=== PATIENT | male | born 1950 | race Caucasian/White ===

== ENCOUNTER → 2021-12-29 | Outpatient (CLI) | payer MEDICARE, OTHER ==
[2021-12-29 14:38] LABS: BASOPHILS % (AUTO) 1 % (0-10); MONOCYTES # (AUTO) 0.8 10^3/uL (0.0-1.0); NEUTROPHILS # (AUTO) 3.3 10^3/uL (1.8-7.8)
[2021-12-29 14:40] LABS: EOSINOPHILS # (AUTO) 0.5 10^3/uL (0.0-0.3); EOSINOPHILS % (AUTO) 9 % (0-10); HEMATOCRIT 40 % (40-54); HEMOGLOBIN 13.9 g/dL (13.3-17.7); LYMPHOCYTES # (AUTO) 1.4 10^3/uL (1.0-4.0); LYMPHOCYTES % (AUTO) 23 % (12-44); MEAN CORPUSCULAR HEMOGLOBIN 33 pg (25-34); MEAN CORPUSCULAR HGB CONC 35 g/dL (32-36); MEAN CORPUSCULAR VOLUME 96 fL (80-99); MONOCYTES % (AUTO) 13 % (0-12); NEUTROPHILS % (AUTO) 55 % (42-75); PLATELET COUNT 103 10^3/uL (130-400)
[2021-12-29 15:13] LABS: INR 1.1 (0.8-1.4); PROTHROMBIN TIME PATIENT 14.3 SEC (12.2-14.7)
== END ==
LOC: CARD 13:30
PROVIDERS: ATTEND Orthopaedic Surgery
DX: Z01.810 Encounter for preprocedural cardiovascular examination (principal); Z01.812 Encounter for preprocedural laboratory examination; M17.11 Unilateral primary osteoarthritis, right knee
CPT/HCPCS: 36415; 85025; 85610; 93005

== ENCOUNTER → 2021-12-29 | Outpatient (CLI) | payer MEDICARE, OTHER ==
--- NOTE | 2021-12-29 12:37 | Diagnostic Imaging Report ---
INDICATION: Right knee pain. COMPARISON: None. FINDINGS: Multiple radiographic views of the right knee were obtained. There is no evidence of acute fracture or dislocation. Osseous structures are intact. Joint spaces are maintained. Mild tricompartmental osteoarthritis is present. Note is made of large extraosseous calcification posterior to the medial joint space. It measures 1.9 x 1.3 cm. Conceivably, this could represent large calcification within a Ellison's cyst. No unexpected radiopaque foreign bodies are seen. Note is made of partially sclerotic lesion within the distal femoral shaft that measures 2.5 x 1.3 x 1.5 cm. Rings and arcs appearance is noted and is suggestive of benign enchondroma. IMPRESSION: 1. No acute fracture or dislocation of the right knee. 2. Mild tricompartmental osteoarthritis with potential calcification within a Ellison's cyst. 3. Probable benign enchondroma of the distal femoral shaft. Please note, pain associated with enchondromas can be a sign of malignant transformation. May want to consider short interval follow-up. Dictated by: Dictated on workstation # [id number]
--- NOTE | 2021-12-29 15:08 | Diagnostic Imaging Report ---
INDICATION: Preop prior to knee surgery. TIME OF EXAM: 2:02 PM. COMPARISON: No prior studies are available for comparison. FINDINGS: The heart size is normal. There is some minimal linear scarring in the left lung base. There is a questionable nodule in the left mid to upper lung field; otherwise, the lungs are clear. No infiltrates are seen. There is no effusion or pneumothorax. There are postop changes involving the right scapula. IMPRESSION: Questionable nodular density in the left mid to upper lung field. Correlation with prior chest radiographs, if available, would be useful to evaluate stability. If no priors are available, a CT of the chest on a nonemergent basis could be performed for further evaluation. Dictated by: Dictated on workstation # [id number]
== END ==
LOC: ORTHO 11:25
PROVIDERS: ATTEND Orthopaedic Surgery
DX: M17.11 Unilateral primary osteoarthritis, right knee (principal); M71.21 Synovial cyst of popliteal space [Baker], right knee
CPT/HCPCS: 71046; 73564; G0463; 99213

== ENCOUNTER 2022-01-14 13:31 | Outpatient (RCR) | payer MEDICARE, OTHER ==
[~2022-01-14] VITALS: Ht 175.3 cm; Wt 128.8 kg
[2022-01-14] MEDS ORDERED: ASPI-999 PO (14:36)
[2022-01-14] MEDS ORDERED: OMEP20TA33 PO (14:36)
[2022-01-14] MEDS ORDERED: ALLO300T2 PO (14:36)
[2022-01-14] MEDS ORDERED: TELM80TA8 PO (14:36)
[2022-01-14] MEDS ORDERED: CELE200C PO (14:36)
[2022-01-14] MEDS ORDERED: DOXA2TAB2 PO (14:36)
[2022-01-14] MEDS ORDERED: ROSU10TA28 PO (14:36)
[2022-01-14 18:01] LABS: BILIRUBIN,URINE NEGATIVE (NEGATIVE); CLARITY,URINE CLEAR; COLOR,URINE YELLOW; GLUCOSE, URINE (UA) NEGATIVE (NEGATIVE); KETONES,URINE NEGATIVE (NEGATIVE); LEUKOCYTE ESTERASE ,URINE NEGATIVE (NEGATIVE); NITRITE,URINE NEGATIVE (NEGATIVE); PROTEIN,URINE NEGATIVE (NEGATIVE)
[2022-01-14 18:12] LABS: BACTERIA,URINE NEGATIVE /HPF
== END 2022-01-15 09:20 | disposition home or self-care (01) ==
LOC: PREOP 13:31 → EDSTATUS 14:00 → PREOP 01-15 09:20
PROVIDERS: ATTEND Orthopaedic Surgery
DX: Z01.812 Encounter for preprocedural laboratory examination (principal); M17.11 Unilateral primary osteoarthritis, right knee; Z20.822 Contact with and (suspected) exposure to COVID-19
CPT/HCPCS: 81000; 87081; 87636

== ENCOUNTER 2022-01-18 06:00 | Inpatient (IN) | payer MEDICARE, OTHER ==
[~2022-01-18] VITALS: Ht 175 cm; Wt 128.8 kg
[2022-01-18] VITALS (10 sets, daily range): BP systolic 117–160; BP diastolic 53–76
[~2022-01-18 06:00] MED LIST: ALLO300T2 PO; ASPI-999 PO; CELE200C PO; DOXA2TAB2 PO; OMEP20TA33 PO; ROSU10TA28 PO; TELM80TA8 PO
--- OUTSIDE RECORDS SUMMARY | 2022-01-18 06:05 | XMS REPORT | Clinical Summary ---
Author Author [facility] Organization [facility] Address Unknown Phone Unavailable Care Team Providers Care Hogshead Weigher Name Role Phone PCP Unavailable Allergies Comments Active Allergy Reactions Severity Noted Date Sores in mouth Penicillins Other (See 01/12/2015 Comments) Medications End Date Status Medication Sig Dispensed Refills Start Date Active allopurinol (ZYLOPRIM) Take 300 mg 0 300 MG tabletIndications: by mouth gout daily. Active aspirin 81 MG chewable Chew 81 mg 0 tablet daily. Active rosuvastatin (CRESTOR) 10 Take 10 mg by 0 MG tablet mouth daily. Active omeprazole (PRILOSEC) 20 Take 20 mg by 0 MG capsule mouth daily. Active Problems Problem Noted Date Chest pain 01/12/2015 Morbid obesity 01/12/2015 SOHA (obstructive sleep apnea) 01/12/2015 HTN (hypertension), benign 01/12/2015 Dyslipidemia 01/12/2015 Family History Medical History Relation Name Comments Cancer Maternal Grandmother Cancer Mother Relation Name Status Comments Maternal Grandmother Mother Social History Date Tobacco Use Types Packs/Day Years Used Quit: 03/21/2003 Former Smoker 35 Comments Alcohol Use Standard Drinks/Week No 0 (1 standard drink = 0.6 o z pure alcohol) Sex Assigned at Date Recorded Not on file Last Filed Vital Signs Reading Time Taken Comments Vital Sign 152/89 01/13/2015 3:22 PM PROCESSING TECHNOLOGIST Blood Pressure 42 01/13/2015 3:22 PM PROCESSING TECHNOLOGIST Pulse 36.9 C (98.5 F) 01/13/2015 3:22 PM PROCESSING TECHNOLOGIST Temperature 20 01/13/2015 3:22 PM PROCESSING TECHNOLOGIST Respiratory Rate 95% 01/13/2015 3:22 PM PROCESSING TECHNOLOGIST Oxygen Saturation - - Inhaled Oxygen Concentration 128.9 kg (284 lb 2.8 oz) 01/13/2015 3:59 AM PROCESSING TECHNOLOGIST Weight 149.9 cm (4' 11") 01/12/2015 11:50 AM PROCESSING TECHNOLOGIST Height 57.4 01/12/2015 11:50 AM PROCESSING TECHNOLOGIST Body Mass Index Plan of Treatment Not on file Results Not on filefrom Last 3 Months Advance Directives For more information, please contact: [phone] Date Inactivated Comments Code Status Date Activated 01/13/2015 7:56 PM Pt has documentation regardi ng DNR status DNR 01/12/2015 2:58 PM
[2022-01-18] MEDS: LACTATED RINGERS 1,000 ML IV PRN ×3 (06:25→12:00)
[2022-01-18] MEDS ORDERED: MIDAZOLAM 2 MG/2 ML (VERSED) VIAL ONE (06:44)
[2022-01-18] MEDS ORDERED: LIDOCAINE PF 2% 5 ML (XYLOCAINE) VIAL ONE (06:44)
[2022-01-18] MEDS ORDERED: fentaNYL INJ 100 MCG/2 ML AMP ONE (06:44)
[2022-01-18] MEDS ORDERED: ONDANSETRON 4 MG/2 ML (SDV) Z0FRAN ONE (06:44)
[2022-01-18] MEDS ORDERED: proPOfol 200 MG/20 ML (DIPRIVAN) VIAL IV ONE (06:44)
[2022-01-18] MEDS ORDERED: CLINDAMYCIN 600 MG/50 ML IVPB 50 ML IV ONE (07:00)
[2022-01-18] MEDS ORDERED: TRANEXAMIC ACID INJECTION 3,000 MG, SODIUM CHLORIDE 0.9% IRRIGATIO 150 ML IR ONE ×2 (07:00)
--- NOTE | 2022-01-18 07:19 | Progress Note-Pre Operative ---
Pre-Operative Progress Note H&P Reviewed The H&P was reviewed, patient examined and no changes noted. Date Seen by Provider: Jan 18, 2022 Time Seen by Provider: 07:10 Date H&P Reviewed: Jan 18, 2022 Time H&P Reviewed: 07:10 Pre-Operative Diagnosis: Right Knee Primary Osteoarthritis EDIE HERNANDEZ MD Jan 18, 2022 07:19
[2022-01-18] MEDS ORDERED: HYDROmorphone 2 MG/ML VIAL (DILAUDID) ONE (07:53)
[2022-01-18] MEDS ORDERED: SEVOFLURANE (ULTANE) 15 ML INHAL SOLN ONE (09:47)
--- NOTE | 2022-01-18 10:04 | Operative Report - Ortho ---
Operative Report Surgeon (s)/Aircraft Dispatcher (s) Surgeon EDIE HERNANDEZ MD Aircraft Dispatcher n/a Pre-Operative Diagnosis Right Knee Primary Osteoarthritis Post-Operative Diagnosis same Operative Report Date of Procedure: Jan 18, 2022 Name of Procedure Performed: Right Total Knee Arthroplasty Description & Findings After obtaining informed consent and marking the patient in the preoperative holding area, the patient did receive IV antibiotics. Patient was taken to the operating room and anesthesia was induced. Surgical timeout was taken. The right lower extremity was prepped and draped in the usual sterile fashion. Incision was made and carried down to fascia. Arthrotomy was performed on the medial side of the patella. Patella was retracted laterally and knee was flexed. Found to have circumferential osteophtye around the distal femur as well as exposed bone in the medial compartment. Hole was made in the distal femur for the intramedullary distal femoral cutting guide. Resection was made then the femur was sized as a 6. 4-in-1 block for a size [address]. Anterior cut was made and there was no notch. Posterior cut was made followed by the chamfers. Box cut was performed. Lug holes were drilled. Attention was turned to the tibial side, extramedullary tibial guide was put into place and aligned with the tibial crest. It was set to take 2 mm off of the affected medial side. Drop aurea was used to confirm alignment. Resection was made and was parallel to the joint line. Tibial bone block was removed. Lamina home demonstration agent was put into place and the menisci and posterior osteophytes were removed. The knee was trialed with a size 6 femur and a size 6 tibia with a 9 mm poly trial. It was found to come out to full extension, slight hyperextension, and flexed beyond 120 degrees. It was stable to varus and valgus stress throughout its range of motion. This was accepted. Knee was brought out into extension and the patella was prepared for an inset patellar button. Patellar trial was placed and this tracked well through the groove of the trial femur. Trial implants were removed. Tibial trial was pinned and punched. The cut bone surfaces were lavaged with pulsatile normal saline. Implants were opened and assembled on the back table. Cement was mixed. Cement was applied to the cut bone surface as well as the implant surface. A size 6 tibial component was impacted into placed and excess cement was removed using a Zebulon. A size 6 femoral component was impacted into place and excess cement was removed using a Zebulon. Tibial tray was lavaged with saline. An 11 mm thick po lyethylene trial was put into place. Knee was brought into extension. Patellar surface was irrigated, dried, and then cement was applied. Patellar component was clamped into place and excess cement was removed using the Zebulon. The knee was irrigated with normal saline. Irrigation was removed and tranexamic acid was placed. Once the cement had set, the knee was once again trialed; found to come to full extension, flexed beyond 120 degrees, and was stable to varus and valgus stress. The trial polyetheylene was removed and an 11 mm polyethylene component was locked into place. Further tranexamic acid was applied for hemostasis. Tourniquet was dropped and electrocautery was used for further hemostasis. Fascial layer was closed with #1 Ethibond. The subcutaneous layer was closed with 2-0 Vicryl. The skin was closed with a running subcuticular 3-0 V-loc. Wound was dressed with mastisol, steri-strips, xeroform, 4x4s, ABD, webril, and DIPTI wrap. Patient tolerated the procedure well and was stable to the recovery room. Anesthesia Type General plus regional Estimated Blood Loss minimal Specimen(s) collected/removed none EDIE HERNANDEZ MD Jan 18, 2022 10:04
[2022-01-18] MEDS ORDERED: BISACODYL 5 MG (DULCOLAX) TABLET PO PRN (10:15)
[2022-01-18] MEDS ORDERED: ONDANSETRON 4 MG/2 ML (SDV) Z0FRAN IVP PRN (10:15)
[2022-01-18] MEDS ORDERED: ONDANSETRON 4 MG/2 ML (SDV) Z0FRAN IV PRN (10:15)
[2022-01-18] MEDS ORDERED: MILK OF MAGNESIA 400 MG/5 ML 30 ML UDC PO PRN (10:15)
--- NOTE | 2022-01-18 10:38 | Diagnostic Imaging Report ---
INDICATION: Right knee surgery. TECHNIQUE: AP and lateral views of the right knee were obtained. FINDINGS: Total right knee arthroplasty has been performed. Gas and fluid are seen within the knee joint and adjacent tissues. There is no evidence of acute fracture or malalignment. IMPRESSION: Post operative fluid and gas within the knee joint. No acute complication is identified. Dictated by: Dictated on workstation # [id number]
--- NOTE | 2022-01-18 13:14 | Physical Therapy Evaluation ---
PT Evaluation-General Medical Diagnosis Admission Date Jan 18, 2022 at 06:00 Medical Diagnosis: R TKA Onset Date: Jan 18, 2022 Therapy Diagnosis Therapy Diagnosis: Weakness, debility, s/p R TKA Precautions Precautions/Isolations: Fall Prevention, Standard Precautions Weight Bear Status Right Lower Extremity: Right Weight Bearing/Tolerated Left Lower Extremity: Left Full Weight Bearing Referral Physician: Mica Reason for Referral: Evaluation/Treatment Medical History Pertinent Medical History: HTN Additional Medical History L TKA 2019 Current History Patient s/p elective R TKA Reviewed History: Yes Social History Home: Single Level Current Living Status: Significant Other Entry Into Home: Level Entry Prior Prior Level of Function SCALE: Activities may be completed with or without assistive devices. 8-Qgndogocon-jguuutt completes the activity by him/herself with no assistance from a helper. 5-Set-up or Clean-up Assistance-helper sets up or cleans up; patient completes activity. Tiger assists only prior to or following the activity. 4-Supervision or Touching Assistance-helper provides verbal cues and/or touching/steadying and/or contact guard assistance as patient completes activity. Assistance may be provided throughout the activity or intermittently. 3-Partial/Moderate Assistance-helper does LESS THAN HALF the effort. Tiger lifts, holds or supports trunk or limbs, but provides less than half the effort. 2-Substantial/Maximal Assistance-helper does MORE THAN HALF the effort. Tiger lifts or holds trunk or limbs and provides more than half the effort. 5-Khshueyfq-htidbc does ALL the effort. Patient does none of the effort to complete the activity. Or, the assistance of 2 or more helpers is required for the patient to complete the activity. If activity was not attempted, code reason: 7-Patient Refused. 9-Not Applicable-not attempted and the patient did not perform the activity before the current illness, exacerbation or injury. 10-Not Attempted due to Environmental Limitations-(lack of equipment, weather restraints, etc.). 88-Not Attempted due to Medical Conditions or Safety Concerns. Bed Mobility: 6 Transfers (B,C,W/C): 6 Gait: 6 Indoor Mobility (Ambulation): Independent Prior Devices Use: None PT Evaluation-Current Subjective Patient presented laying in bed and agreed to physical therapy Objective Patient Orientation: Person, Place, Situation Attachments: Rogers Catheter, Polar Pack, IV ROM/Strength ROM Lower Extremities L LE WFL R LE 10-50 degrees of knee flexion Strength Lower Extremities L LE 4/5 strength grossly R LE not tested due to recent surgery Integumentary/Posture Bowel Incontinence: No Bladder Incontinence: No Neuromuscular (Tone, Coordination, Reflexes) Grossly intact Sensory Vision: Functional Hearing: Functional Transfers Lying to Sitting/Side of Bed(Q: 4 Sit to Stand (QC): 3 Chair/Zbi-tx-Ieuyv Xfer(QC): 3 Patient went from supine to EOB with CGA but required mod assist for sit to stand transfer. Gait Does the Patient Walk?: Yes Mode of Locomotion: Walk Anticipated Mode of Locomotion: Walk Walk 10 feet (QC): 3 Walk 50 ft with 2 Turns(QC): 3 Distance: 75' Gait Assistive Device: FWW Comments/Gait Description Patient ambulated 75' with min assist and step to gait pattern. Patient shuffles his feet and has difficulty putting full weight on his R LE Balance Sitting Static: Normal Sitting Dynamic: Normal Standing Static: Normal Standing Dynamic: Fair Treatment 01/18/22 Patient too lethargic to participate with OOB activity. CPM/Pads 0-[address] right LE 01/19/22 Patient performed supine and seated exercises and ambulation for75'. Seated exercises LAQ. Supine exercises: quad sets, SLR, heel slides Assessment/Needs Patient ambulated 75' with min assist and FWW and required mod assist for sit to stand transfer. Patient ambulates very slowly and performs step to gait pattern with shuffling gait. Patient performed seated and supine exercises during therapy session. Rehab Potential: Fair PT Half-Way Goals Half-Way Goals PT Java Integration Developer Goals Time Frame: Jan 30, 2022 Roll Left & Right (QC): 6 Sit to Lying (QC): 6 Lying-Sitting on Side/Bed(QC): 6 Sit to Stand (QC): 6 Chair/Azr-la-Pwbnn Xfer(QC): 6 Toilet Transfer (QC): 6 Does the Patient Walk: Yes Walk 10 feet (QC): 6 Walk 50ft with 2 Turns (QC): 6 Walk 150 ft (QC): 6 PT Plan Problem List Problem List: Activity Tolerance, Functional Strength, Safety, Balance, Gait, Transfer, Bed Mobility, ROM Treatment/Plan Treatment Plan: Continue Plan of Care Treatment Plan: Bed Mobility, Education, Functional Activity Praful, Functional Strength, Gait, Safety, Therapeutic Exercise, Transfers Treatment Duration: Jan 30, 2022 Frequency: 11 times per week Estimated Hrs Per Day: .5 hour per day Patient and/or Family Agrees t: Yes Time/GCodes Time In: 737 Time Out: 813 Total Billed Treatment Time: 36 Total Billed Treatment 1 Visit 01/18/22 CPM and Pads 10 min([id number]) 01/19/22 1 Visit EVMod 15 min Gait 21 min TRICIA BILLINGSLEY PT Jan 18, 2022 13:14
[2022-01-18] MEDS: CLINDAMYCIN 600 MG/50 ML IVPB 50 ML IV SCH ×2 (14:11→22:10)
[2022-01-18] MEDS ORDERED: TRIA1TAB3 PO (15:08)
[2022-01-18] MEDS ORDERED: DOXA4TAB2 PO (15:08)
[2022-01-18] MEDS ORDERED: PATIENT MAY USE OWN MEDS, ALL MC SCH (17:30)
[2022-01-18] MEDS: ASPIRIN E.C. 81 MG (ECOTRIN) TAB PO SCH (17:34)
[2022-01-18] MEDS: ACETAMINOPHEN 500 MG TAB (TYLENOL) PO PRN (18:00)
[2022-01-18] MEDS: morphine INJ 4 MG/ML 1 ML (VIAL/SYRINGE) IVP PRN (20:20)
[2022-01-18] MEDS: CELECOXIB 100 MG (CeleBREX) CAP PO SCH ×2 (20:21→21:26)
[2022-01-18] MEDS: DOCUSATE SODIUM 100 MG (COLACE) CAP PO SCH (20:22)
[2022-01-19 00:06] VITALS: BP 150/73
[2022-01-19 04:05] VITALS: BP 121/65
[2022-01-19] MEDS: morphine INJ 4 MG/ML 1 ML (VIAL/SYRINGE) IVP PRN ×3 (04:45→16:17)
[2022-01-19] MEDS: MULTIVIT W/MINERALS TAB (THERAGRAN M) PO SCH (06:19)
[2022-01-19] MEDS: [UNRECOGNIZED DRUG - REMARK] PO SCH (08:24)
[2022-01-19] MEDS: [UNRECOGNIZED DRUG - REMARK] PO SCH (08:25)
[2022-01-19] MEDS: DOCUSATE SODIUM 100 MG (COLACE) CAP PO SCH (08:25)
--- NOTE | 2022-01-19 08:25 | Progress Note - Ortho ---
Progress Note Subjective Date of Exam 01/19/22 Chief Complaint POD #1 R TKA HPI/Events since last exam already walked with therapy this AM, has pain but states it is different than prior to surgery, pleased with early progress Review of Systems - Allergies: Coded Allergies: Penicillins (Unverified Allergy, Unknown, 01/14/22) Home Meds Reported Medications Triamterene/Hydrochlorothiazid (Triamterene-Hctz 37.5-25 mg Tb) 1 Each Tablet, 0.5 EA PO DAILY, TAB 01/18/22 Doxazosin Mesylate (Doxazosin Mesylate) 4 Mg Tablet, 2 MG PO DAILY, TAB TAKES OF A 4MG 01/18/22 Celecoxib (Celebrex) 200 Mg Capsule, 200 MG PO BID, CAP 01/14/22 Allopurinol (Allopurinol) 300 Mg Tablet, 300 MG PO DAILY, TAB 01/14/22 Rosuvastatin Calcium (Rosuvastatin Calcium) 10 Mg Tablet, 10 MG PO DAILY, TAB 01/14/22 Telmisartan (Telmisartan) 80 Mg Tablet, 80 MG PO DAILY, TAB 01/14/22 Aspirin (Aspirin) 81 Mg Tab.chew, 81 MG PO, TAB 01/14/22 Omeprazole Magnesium (Prilosec Otc) 20 Mg Tablet.dr, 20 MG PO DAILY, TAB 01/14/22 Discontinued Reported Medications Doxazosin Mesylate (Doxazosin Mesylate) 2 Mg Tablet, 2 MG PO DAILY, TAB 01/14/22 Objective Exam R Knee: Dressing C/D/I, +DF of ankle, no s/s of DVT Vital Signs Vital Signs Date Time Temp Pulse Resp B/P (MAP) Pulse Ox O2 Delivery O2 Flow Rate FiO2 01/19/22 04:05 36.0 46 20 121/65 (83) 97 NIV CPAP 01/19/22 00:06 36.4 57 20 150/73 (98) 96 NIV CPAP 01/18/22 20:58 Room Air 01/18/22 20:49 36.6 83 20 160/72 (101) 94 OxyMask 2.00 01/18/22 18:21 Nasal Cannula 2.00 01/18/22 15:57 36.2 54 20 153/68 (96) 98 OxyMask 2.00 01/18/22 11:30 35.8 54 22 143/76 (98) 97 OxyMask 2.00 01/18/22 11:00 36.4 18 128/74 (92) 97 OxyMask 2 01/18/22 11:00 OxyMask 2 01/18/22 11:00 97 Nasal Cannula 2.00 01/18/22 10:50 18 117/53 (74) 98 OxyMask 2 01/18/22 10:50 OxyMask 2 01/18/22 10:42 OxyMask 2 01/18/22 10:40 18 124/76 (92) 97 OxyMask 2 01/18/22 10:40 OxyMask 2 01/18/22 10:37 OxyMask 4 01/18/22 10:30 OxyMask 6 01/18/22 10:30 18 122/56 (78) 99 OxyMask 6 01/18/22 10:20 18 142/68 (92) 98 OxyMask 6 01/18/22 10:15 OxyMask 6 01/18/22 10:10 18 133/64 (87) 97 OxyMask 6 01/18/22 10:03 OxyMask 6 01/18/22 10:03 36.6 15 138/65 (89) 95 OxyMask 6 I & O 01/19/22 06:59 Intake Total 4150 ml Output Total 2975 ml Balance 1175 ml Imaging Postop images demonstrate total knee arthroplasty with components in good position, no complications Assessment and Plan Assessment R Knee Primary OA s/p R TKA Problem List R Knee Primary OA s/p R TKA Plan PT/OT DVT Prophylaxis Will request IRF eval to see if patient is a candidate; could transition as soon as tomorrow Final Diagonsis R Knee Primary OA s/p R TKA Level of the visit: Level 3 (postop global) EDIE HERNANDEZ MD Jan 19, 2022 08:25
[2022-01-19] MEDS: CELECOXIB 100 MG (CeleBREX) CAP PO SCH ×3 (08:26→20:52)
[2022-01-19] MEDS: doxAzosin 4 MG (CARDURA) TAB PO SCH (08:26)
[2022-01-19] MEDS: ASPIRIN E.C. 81 MG (ECOTRIN) TAB PO SCH ×2 (08:26→16:18)
[2022-01-19] MEDS: ALLOPURINOL 300 MG (ZYLOPRIM) TAB PO SCH (08:26)
[2022-01-19] MEDS: [UNRECOGNIZED DRUG - REMARK] PO SCH (08:27)
[2022-01-19] MEDS: ROSUVASTATIN 10 MG (CRESTOR) TABLET PO SCH (08:35)
[2022-01-19 08:39] VITALS: BP 119/69
[2022-01-19] MEDS ORDERED: NON-FORMULARY MEDICATION 1 EA EA (Triamterene/Hydrochlorothiazid (Triamterene-Hctz 37.5-25 PO SCH (09:00)
[2022-01-19] MEDS: ACETAMINOPHEN 500 MG TAB (TYLENOL) PO PRN ×2 (10:20→14:40)
--- NOTE | 2022-01-19 11:13 | Occupational Therapy Eval ---
OT Evaluation-General/PLF Medical Diagnosis Admission Date Jan 18, 2022 at 06:00 Medical Diagnosis: R TKA Onset Date: Jan 18, 2022 Therapy Diagnosis Therapy Diagnosis: decreased ADL status Precautions Precautions/Isolations: Fall Prevention, Standard Precautions Referral Physician: Mica Referral Reason: Evaluation/Treatment Medical History Pertinent Medical History: HTN Additional Medical History L TKA 2019 Current History s/p elective R TKA 01/18/22 Social History Home: Single Level Current Living Status: Significant Other Entry Into Home: Level Entry ADL-Prior Level of Function SCALE: Activities may be completed with or without assistive devices. 1-Hijmhfvgwr-dhupwdu completes the activity by him/herself with no assistance from a helper. 5-Set-up or Clean-up Assistance-helper sets up or cleans up; patient completes activity. [place] assists only prior to or following the activity. 4-Supervision or Touching Assistance-helper provides verbal cues and/or touching/steadying and/or contact guard assistance as patient completes activity. Assistance may be provided throughout the activity or intermittently. 3-Partial/Moderate Assistance-helper does LESS THAN HALF the effort. [place] lifts, holds or supports trunk or limbs, but provides less than half the effort. 2-Substantial/Maximal Assistance-helper does MORE THAN HALF the effort. [place] lifts or holds trunk or limbs and provides more than half the effort. 5-Gyvtoliil-uqdokn does ALL the effort. Patient does none of the effort to complete the activity. Or, the assistance of 2 or more helpers is required for the patient to complete the activity. If activity was not attempted, code reason: 7-Patient Refused. 9-Not Applicable-not attempted and the patient did not perform the activity b efore the current illness, exacerbation or injury. 10-Not Attempted due to Environmental Limitations-(lack of equipment, weather restraints, etc.). 88-Not Attempted due to Medical Conditions or Safety Concerns. ADL PLOF Comments Pt reports IND with ADLs and functional mobiltiy at [facility], no AD. 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 Self Care: Independent Functional Cognition: Independent OT Current Status Subjective Pt in recliner, states he does not feel ready to leave the hospital, as he doesn't want to be a burden to his . Pt interested in going to rehab unit for a few days prior to going back home. Mental Status/Objective Patient Orientation: Person, Place, Time, Situation Current Upper Extremity ROM WFL Upper Extremity Strength grossly 4+/5 ADL-Treatment Eating (QC): 6 (per pt report) Oral Hygiene (QC): 5 (per clinical judgment.) Upper Body Dressing (QC): 4 (SBA, cue for orientation of shirt as pt was donning backwards.) Lower Body Dressing (QC): 3 (Assistance threading RLE, pt able to manage LUE and pant hike with increased time.) Toileting Hygiene (QC): 4 (CGA in stand, pt able to use urinal and manage clothing) Other Treatments Pt in recliner, agreeable to OT Tx. Pt provided information about PLOF And home set up, pt talking about tangents, requiring redirection to topic. Pt agreeable to donning clothes. Throughout conversation, pt expressed interest in rehab unit to get more independent prior to returning home with his . Pt able to complete ADLs as outlined above. Mod A sit to stand from recliner. Post tx, pt in recliner, call light in reach and all needs met. Education OT Patient Education: Correct positioning, Energy conservation, Exercise program, Modified ADL techniques, Progress toward Goal/Update tx plan, Purpose of tx/functional activities Teaching Recipient: Patient Teaching Methods: Discussion Response to Teaching: Verbalize Understanding OT Phd Internship Goals Phd Internship Goals Time Frame: Jan 29, 2022 Eating (QC): 6 Oral Hygiene (QC): 6 Toileting Hygiene (QC): 6 Shower/Bathe Self (QC): 6 Upper Body Dressing (QC): 6 Lower Body Dressing (QC): 6 On/Off Footwear (QC): 6 Additional Goals: 1-Demonstrate ADL Tasks, 2-Verbalize Understanding, 3- ImproveStrength/Praful 1=Demonstrate adherence to instructed precautions during ADL tasks. 2=Patient will verbalize/demonstrate understanding of assistive devices/modifications for ADL. 3=Patient will improve strength/tolerance for activity to enable patient to perform ADL's. OT Education/Plan Problem List/Assessment Assessment: Decreased Activ Tolerance, Impaired Funct Balance, Impaired I ADL's, Impaired Self-Care Skills Discharge Recommendations Plan/Recommendations: Continue POC Treatment Plan/Plan of Care Patient would benefit from OT for education, treatment and training to promote independence in ADL's, mobility, safety and/or upper extremity function for ADL's. Plan of Care: ADL Retraining, Functional Mobility, UE Funct Exercise/Act Treatment Duration: Jan 29, 2022 Frequency: 3 times per week (3-5 times per week) Estimated Hrs Per Day: .25 hour per day Rehab Potential: Fair Time/GCodes Start Time: 10:22 Stop Time: 10:45 Total Time Billed (hr/min): 23 Billed Treatment Time 1, EVM (10'), ADL (13') EDWIGE CHAIREZ OT Jan 19, 2022 11:13
--- NOTE | 2022-01-19 11:30 | Physical Therapy Daily Note ---
PT Daily Note-Current Subjective Patient presented sitting in his chair and agreed to participate with therapy. Mental Status Patient Orientation: Person, Place, Time, Situation Transfers SCALE: Activities may be completed with or without assistive devices. 7-Voyjancsdj-hpsrhaf completes the activity by him/herself with no assistance from a helper. 5-Set-up or Clean-up Assistance-helper sets up or cleans up; patient completes activity. Jbsa Randolph assists only prior to or following the activity. 4-Supervision or Touching Assistance-helper provides verbal cues and/or touching/steadying and/or contact guard assistance as patient completes activity. Assistance may be provided throughout the activity or intermittently. 3-Partial/Moderate Assistance-helper does LESS THAN HALF the effort. Jbsa Randolph lifts, holds or supports trunk or limbs, but provides less than half the effort. 2-Substantial/Maximal Assistance-helper does MORE THAN HALF the effort. Jbsa Randolph lifts or holds trunk or limbs and provides more than half the effort. 0-Bxbpfevoa-peubui does ALL the effort. Patient does none of the effort to complete the activity. Or, the assistance of 2 or more helpers is required for the patient to complete the activity. If activity was not attempted, code reason: 7-Patient Refused. 9-Not Applicable-not attempted and the patient did not perform the activity before the current illness, exacerbation or injury. 10-Not Attempted due to Environmental Limitations-(lack of equipment, weather restraints, etc.). 88-Not Attempted due to Medical Conditions or Safety Concerns. Sit to Stand (QC): 3 Patient required mod assist for sit to stand after 2 attempts. Patient required cues to lean forward with sit to stand transfer. Weight Bearing Right Lower Extremity: Right Weight Bearing/Tolerated Left Lower Extremity: Left Full Weight Bearing Gait Training Does the Patient Walk?: Yes Distance: 150' Walk 10 feet (QC): 4 Walk 50 ft with 2 Turns(QC): 4 Walk 150 ft (QC): 4 Gait Assistive Device: FWW Patient ambulates with CGA for 150' with FWW. Patient ambulates very slowly and requires rest breaks during ambulation. Patient ambulates with step to gait pattern and has difficulty putting his full weight through his R LE. Exercises Seated Therapy Exercises: Long arc quads, Hip flexion Seated Reps: 10 Assessment Patient ambulated and performed seated exercises. Patient ambulates slowly and takes frequent rest breaks. Patient ambulates with step to gait pattern and does not put full weight through his R LE. PT Longterm Goals Longterm Goals PT Longterm Goals Time Frame: Jan 30, 2022 Roll Left & Right (QC): 6 Sit to Lying (QC): 6 Lying-Sitting on Side/Bed(QC): 6 Sit to Stand (QC): 6 Chair/Iaw-nq-Nrwxn Xfer(QC): 6 Toilet Transfer (QC): 6 Does the Patient Walk: Yes Walk 10 feet (QC): 6 Walk 50ft with 2 Turns (QC): 6 Walk 150 ft (QC): 6 PT Plan Problem List Problem List: Activity Tolerance, Functional Strength, Safety, Balance, Gait, Transfer, Bed Mobility, ROM Treatment/Plan Treatment Plan: Continue Plan of Care Treatment Plan: Bed Mobility, Education, Functional Activity Praful, Functional Strength, Gait, Safety, Therapeutic Exercise, Transfers Treatment Duration: Jan 30, 2022 Frequency: 11 times per week Estimated Hrs Per Day: .5 hour per day Patient and/or Family Agrees t: Yes Time/GCodes Time In: 1053 Time Out: 1117 Total Billed Treatment Time: 24 Total Billed Treatment 1 Visit Gait 16 min EX 8 min TRICIA BILLINGSLEY PT Jan 19, 2022 11:30
[2022-01-19 11:58] VITALS: BP 104/53
--- NOTE | 2022-01-19 13:09 | Anesthesia-General Post-Op ---
General Patient Condition Mental Status/LOC: Same as Preop Cardiovascular: Satisfactory Nausea/Vomiting: Absent Respiratory: Satisfactory Pain: Controlled Complications: Absent Post Op Complications Complications None Follow Up Care/Instructions Patient Instructions None needed. Anesthesia/Patient Condition Patient Condition Patient is doing well, no complaints, stable vital signs, no apparent adverse anesthesia problems. Sensation from block has fully returned READING,EDIE Guillory CRNA Jan 19, 2022 13:09
[2022-01-19 15:53] VITALS: BP 159/72
[2022-01-19 19:57] VITALS: BP 109/56
[2022-01-20 00:09] VITALS: BP 119/58
[2022-01-20 04:14] VITALS: BP 125/60
[2022-01-20] MEDS: MULTIVIT W/MINERALS TAB (THERAGRAN M) PO SCH (06:26)
[2022-01-20 08:17] VITALS: BP 115/59
[2022-01-20] MEDS ORDERED: ASPI-1238 PO (08:27)
[2022-01-20] MEDS ORDERED: OXC5T PO (08:27)
--- NOTE | 2022-01-20 08:32 | Discharge Summary ---
Discharge Summary Hospital Course Hospital Course Date of Admission: Jan 18, 2022 at 06:00 Admission Diagnosis : Right Knee Primary Osteoarthritis Family Physician/Provider: Date of Discharge: 01/20/22 Discharge Diagnosis: Right Knee Primary Osteoarthritis s/p Right Total Knee Arthroplasty Hospital Course: On 01/18/22, patient was admitted and taken to the operating room for right total knee arthroplasty. Tolerated the procedure well and was admitted to the regular floor after surgery. Began mechanical DVT prophylaxis on the night of surgery. Had intial PT evaluation and started CPM on same day. On POD #1, he progressed very well with therapy. He was started on chemical DVT prophylaxis. Evaluation for inpatient rehab was completed and he was accepted. On POD #2, patient was continuing to make progress. Pain was controlled on oral medication. He was tolerating a regular diet. He was ready for transfer to rehab. Labs and Pending Lab Test: Home Meds Active Aspirin EC (Aspirin) 81 Mg Tablet.dr 81 Mg PO BID WITH MEALS 14 Days Reported Triamterene-Hctz 37.5-25 mg Tb (Triamterene/Hydrochlorothiazid) 1 Each Tablet 0.5 Ea PO DAILY Doxazosin Mesylate 4 Mg Tablet 2 Mg PO DAILY TAKES OF A 4MG Celebrex (Celecoxib) 200 Mg Capsule 200 Mg PO BID Allopurinol 300 Mg Tablet 300 Mg PO DAILY Rosuvastatin Calcium 10 Mg Tablet 10 Mg PO DAILY Telmisartan 80 Mg Tablet 80 Mg PO DAILY Aspirin 81 Mg Tab.chew 81 Mg PO Prilosec Otc (Omeprazole Magnesium) 20 Mg Tablet.dr 20 Mg PO DAILY Assessment/Pt Instructions WBAT with walker, dry telfa to incision daily to every other day, continue therapy for ROM/strengthening/gait training Discharge Physical Examination Vital Signs Vital Signs Date Time Temp Pulse Resp B/P (MAP) Pulse Ox O2 Delivery O2 Flow Rate FiO2 01/20/22 08:17 36.8 50 18 115/59 (77) 96 Room Air 01/18/22 20:49 2.00 Extremity: Other (Incision C/D/I, +DF of ankle, no s/s of DVT) Allergies: Coded Allergies: Penicillins (Unverified Allergy, Unknown, 01/14/22) Discharge Summary Date of Admission Jan 18, 2022 at 06:00 Date of Discharge EDIE HERNANDEZ MD Jan 20, 2022 08:32
[2022-01-20] MEDS: doxAzosin 4 MG (CARDURA) TAB PO SCH (08:42)
[2022-01-20] MEDS: ASPIRIN E.C. 81 MG (ECOTRIN) TAB PO SCH (08:42)
[2022-01-20] MEDS: ROSUVASTATIN 10 MG (CRESTOR) TABLET PO SCH (08:42)
[2022-01-20] MEDS: CELECOXIB 100 MG (CeleBREX) CAP PO SCH (08:42)
[2022-01-20] MEDS: [UNRECOGNIZED DRUG - REMARK] PO SCH (08:43)
[2022-01-20] MEDS: [UNRECOGNIZED DRUG - REMARK] PO SCH (08:44)
[2022-01-20] MEDS: [UNRECOGNIZED DRUG - REMARK] PO SCH (08:45)
[2022-01-20] MEDS: ALLOPURINOL 300 MG (ZYLOPRIM) TAB PO SCH (08:46)
== END 2022-01-20 09:30 | DRG 470 ==
LOC: 4TH 06:00 → SURG 06:01 → 4TH 10:55
PROVIDERS: ADMIT Orthopaedic Surgery; ATTEND Orthopaedic Surgery
PROC: 0SRC0J9 Replacement of Right Knee Joint with Synthetic Substitute, Cemented, Open Approach (ICD-10-PCS; principal; 2022-01-18 07:18)
DX: M17.11 Unilateral primary osteoarthritis, right knee (principal); Z68.41 Body mass index [BMI] 40.0-44.9, adult; E78.00 Pure hypercholesterolemia, unspecified; G47.33 Obstructive sleep apnea (adult) (pediatric); E78.5 Hyperlipidemia, unspecified; E66.01 Morbid (severe) obesity due to excess calories; Z87.891 Personal history of nicotine dependence; Z79.82 Long term (current) use of aspirin; Z88.0 Allergy status to penicillin
CPT/HCPCS: 73560; 86850; 86900; 86901; 94664

== ENCOUNTER 2022-01-20 09:30 | Inpatient (IN) | payer MEDICARE, OTHER ==
[~2022-01-20] VITALS: Ht 175 cm; Wt 138.1 kg
[~2022-01-20 09:30] MED LIST changes: +ACETAMINOPHEN 325 MG TABLET PO PRN; +ALPRAZolam 0.25 MG (XANAX) TAB PO PRN; +ASPI-1238 PO; +BISACODYL 10 MG SUPP (DULCOLAX) PR PRN; +CALCIUM CARBONATE 500 MG (TUMS) TAB.CHEW PO PRN; +DOCUSATE SODIUM 100 MG (COLACE) CAP PO PRN; +DOXA4TAB2 PO; +FLEET ENEMA ADULT 1 EA BTL PR PRN; +LACTULOSE SYRUP 10GM/15ML (ENULOSE) 30ML UDC PO PRN; +LOPERAMIDE 2 MG (IMODIUM) TABLET PO PRN; +MELATONIN 3 MG TABLET PO PRN; +ONDANSETRON 4 MG (ZOFRAN) ORAL DISSOLVE TAB PO PRN; +OXC5T PO; +TRIA1TAB3 PO; +diphenhydrAMINE 25 MG TAB (BENADRYL) PO PRN; +guaiFENesin/CODEINE (ROBITUSSIN AC) 10ML UDC PO PRN
--- NOTE | 2022-01-20 09:56 | PM&R Post Admission Assessment ---
PM&R HP Date of Visit: Jan 20, 2022 Time of Visit: 14:00 History of Present Illness Chief complaint: Debility following right knee replacement History present illness: This is a 71-year-old white male clinic patient of Dr. Dejesus and the [facility] who has a past medical history of BPH, SOHA on CPAP and obesity who presented to the inpatient rehab unit following an uncomplicated right total knee replacement by Dr. Nino. Patient had an uncomplicated left knee replacement in 2019 but since he had Covid in July although it was mild case he has had significant deconditioning and very sedentary life since that time due to severe fatigue. He will work on increasing his stamina from po st Covid syndrome along with right knee strengthening prior to discharge home to independent living. He just had a BM. He is voiding well. Labs reviewed everything was within normal limits. CC: Debility following right knee replacement HPI: Status post knee replacement with Dr. Nino POD #2. 4/10 right knee pain. Tolerating pain medications. Having normal bowel movements, requiring laxatives for help. Urinating without issues. Past Medical History Osteoarthritis Hypercholesterolemia Benign Prostatic Hyperplasia Hypertension Obstructive Sleep Apnea- uses CPAP regularly Allergies Penicillin Allergy (sores in mouth) Seasonal allergies Home Medications Allopurinol (Allopurinol), 300 MG PO DAILY Aspirin (Aspirin EC), 81 MG PO BID Celecoxib (Celebrex), 200 MG PO BID Doxazosin Mesylate (Doxazosin Mesylate), 2 MG PO DAILY Omeprazole Magnesium (Prilosec Otc), 20 MG PO DAILY Rosuvastatin Calcium (Rosuvastatin Calcium), 10 MG PO DAILY Telmisartan (Telmisartan), 80 MG PO DAILY Triamterene/Hydrochlorothiazid (Triamterene-Hctz 37.5-25 mg Tb), 0.5 EA PO DAILY Social Hx: Smoke- Former smoker (quit in 2002) smoked for around 38 years, estimated 100 pack year smoker EtOH- Drinks an average of 3 Rum and Cokes ( 1 shot of rum per coke) per night, 3-4 nights per week to his for 42 years 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 HEENT: No decrease in hearing or change in vision. CVS: No chest pain, edema, or palpitations. Resp: No cough or shortness of breath. GI: No nausea, vomiting, diarrhea, constipation, abdominal pain, or bloody stools. : No urinary incontinence, dysuria, or hematuria Neuro: No anxiety or depression. Extremities: Decreased ROM on Right knee from knee replacement surgery. No decreased ROM in other extremities. Exam: General Appearance: No apparent distress, WD/WN. HEENT: PERRLA, EOMI, moist mucous membranes, anicteric sclera bilaterally. Respiratory: Lungs clear, normal breath sounds, no accessory muscle use, no respiratory distress. CVS: Regular rate and rhythm, no murmur, no edema GI: Normoactive bowel sounds, no organomegaly, no pulsatile mass, abdomen nontender Neuro: Alert, Oriented x3, No motor/sensory deficits, normal mood/affect, CN II-XII normal as tested Extremity: Decreased ROM on right knee from knee replacement surgery. No decreased ROM in other extremities. 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) Alcohol Use: Denies Use Smoking Status: Former Smoker Former Smoker, Quit: Jan 14, 2003 Recent Hopitalizations: Yes (APRIL 2020) Seasonal Allergies Seasonal Allergies: Yes (CHRONIC NASAL DRAINAGE) Past Medical History Surgeries: Orthopedic Respiratory: Sleep Apnea Currently Using CPAP: Yes Cardiac: High Cholesterol, Hypertension Genitourinary: Benign Prostatic Hyperpl Musculoskeletal: Arthritis Endocrine: Diabetes, Non-Insulin dep History of Blood Disorders: No Adverse Reaction to Blood Fatima: No PM&R Allergy/Meds/Data Review Allergies Coded Allergies: Penicillins (Unverified Allergy, Unknown, 01/14/22) Home Medications Scheduled Allopurinol (Allopurinol), 300 MG PO DAILY, (Reported) Aspirin (Aspirin EC), 81 MG PO BID WITH MEALS Celecoxib (Celebrex), 200 MG PO BID, (Reported) Doxazosin Mesylate (Doxazosin Mesylate), 2 MG PO DAILY, (Reported) Omeprazole Magnesium (Prilosec Otc), 20 MG PO DAILY, (Reported) Rosuvastatin Calcium (Rosuvastatin Calcium), 10 MG PO DAILY, (Reported) Telmisartan (Telmisartan), 80 MG PO DAILY, (Reported) Triamterene/Hydrochlorothiazid (Triamterene-Hctz 37.5-25 mg Tb), 0.5 EA PO DAILY, (Reported) Miscellaneous Medications Aspirin (Aspirin), 81 MG PO, (Reported) Discontinued Medications Doxazosin Mesylate (Doxazosin Mesylate), 2 MG PO DAILY, (Reported) Discontinued Reason: Duplicate Order Current Medications Current Medications Reviewed Review of Systems Constitutional: see HPI, malaise, weakness EENTM: no symptoms reported Respiratory: no symptoms reported Cardiovascular: no symptoms reported Gastrointestinal: no symptoms reported Genitourinary: no symptoms reported Musculoskeletal: back pain, joint pain Skin: no symptoms reported Psychiatric/Neurological: No Symptoms Reported All Other Systems Reviewed Negative Unless Noted: Yes Physical Exam Physical Exam Vital Signs Capillary Refill : Height, Weight, BMI Height: '" Weight: lbs. oz. kg; 42.05 BMI Method: General Appearance: No Apparent Distress, WD/WN, Chronically ill, Obese Eyes: Bilateral Eye Normal Inspection, Bilateral Eye PERRL HEENT: PERRL/EOMI, Normal ENT Inspection, Pharynx Normal Neck: Full Range of Motion, Normal Inspection, Non Tender, Supple, Carotid Bruit Respiratory: Chest Non Tender, Lungs Clear, Normal Breath Sounds, No Accessory Muscle Use, No Respiratory Distress Cardiovascular: Regular Rate, Rhythm, No Edema, No Gallop, No JVD, No Murmur, Normal Peripheral Pulses Gastrointestinal: Normal Bowel Sounds, No Organomegaly, No Pulsatile Mass, Non Tender, Soft Back: Normal Inspection, No CVA Tenderness, No Vertebral Tenderness Extremity: Normal Capillary Refill, Normal Inspection, Normal Range of Motion (Except right leg), Non Tender, No Calf Tenderness, No Pedal Edema Neurologic/Psychiatric: Alert, Oriented x3, No Motor/Sensory Deficits, Normal Mood/Affect, 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 II-XII Norm as Tested Skin: Normal Color, Warm/Dry Lymphatic: No Adenopathy PM&R Medical Assessment & Plan REHAB/MEDICAL ASSESSMENT AND PLAN: REHAB IMPAIRMENT GROUP: Right knee replacement ETIOLOGIC DIAGNOSIS: Right knee replacement The comorbidities that impact the patients function and/or functional outcome by: Obesity, post-COVID fatigue, SOHA on CPAP, hypertension REHAB PLAN: The patient is being admitted to our comprehensive inpatient rehabilitation facility and can tolerate the intensity of service consisting of at least: 180 minutes of therapy a day, 5 out of 7 days a week Rehab treatment will consist of: PT and OT will focus on regaining function with the use of assistive devices and increase stamina and help with post Covid fat igue The patient/family has a good understanding of our discharge process and will benefit from an interdisciplinary inpatient rehabilitation program. The patient has potential to make improvement and is in need of at least two of the following multidisciplinary therapies including but not limited to physical, occupational, speech, and prosthetics and orthotics. Additionally the patient will need services from respiratory, nutritional services, wound care, psychology, etc. (Customize this to each patient). Given the patients complex condition and risk of further medical complications, rehabilitation services cannot be safely or effectively provided at a lower level of care such as a nursing home facility. BARRIERS TO DISCHARGE: Obesity ESTIMATED LOS: 7 days DISPOSITION: Home RELEVANT CHANGES SINCE PREADMISSION SCREENING: I have compared the patients medical and functional status at the time of the preadmission screening and there are: No changes PROGNOSIS: Good REHABILITATION GOALS: 1. PT and OT will focus on regaining function with the use of assistive devices and increase stamina and help with post Covid fatigue All the above goals were reviewed with the patient and he/she is in agreement. By signing this document, I acknowledge that I have personally performed a full physical examination on this patient within 24 hours of admission to this inpatient rehabilitation facility and have determined the patient to be able to tolerate the above course of treatment at an intensive level for a reasonable period of time. I will be completing a detailed individualized Plan of Care for this patient by day #4 of the patients stay based upon the Preadmission Screen, the Post-Admission Evaluation, and the therapy evaluations. Admission Dx/Comorbidities: (1) Status post right knee replacement ICD Codes: Z96.651 - Presence of right artificial knee joint (2) SOHA on CPAP ICD Codes: G47.33 - Obstructive sleep apnea (adult) (pediatric); Z99.89 - Dependence on other enabling machines and devices (3) Obesity ICD Codes: E66.9 - Obesity, unspecified (4) BPH (benign prostatic hyperplasia) ICD Codes: N40.0 - Benign prostatic hyperplasia without lower urinary tract symptoms (5) Hypertension ICD Codes: I10 - Essential (primary) hypertension (6) Hyperlipidemia ICD Codes: E78.5 - Hyperlipidemia, unspecified (7) Acute blood loss anemia ICD Codes: D62 - Acute posthemorrhagic anemia (8) Post-COVID syndrome ICD Codes: U09.9 - Post COVID-19 condition, unspecified (9) Fatigue ICD Codes: R53.83 - Other fatigue (10) Osteoarthritis of right knee ICD Codes: M17.11 - Unilateral primary osteoarthritis, right knee Assessment/Plan Assessment and Plan Assess & Plan/Chief Complaint Assessment: Status post uncomplicated right total knee replacement by Dr. Nino on 01/18/2022 SOHA on CPAP Post Covid syndrome fatigue Hypertension Hyperlipidemia BPH Acute blood loss anemia Obesity BMI 42 Plan: Rehab protocol Monitor blood pressure Pain control Constipation management JOHNNY VARMA DO Jan 20, 2022 09:56
[2022-01-20] MEDS ORDERED: ACETAMINOPHEN 500 MG TAB (TYLENOL) PO PRN (10:15)
[2022-01-20] MEDS ORDERED: morphine INJ 4 MG/ML 1 ML (VIAL/SYRINGE) IVP PRN (10:15)
[2022-01-20] MEDS ORDERED: ONDANSETRON 4 MG/2 ML (SDV) Z0FRAN IVP PRN (10:15)
[2022-01-20] MEDS ORDERED: PATIENT MAY USE OWN MEDS, ALL MC SCH (10:15)
[2022-01-20] MEDS ORDERED: MILK OF MAGNESIA 400 MG/5 ML 30 ML UDC PO PRN (10:15)
[2022-01-20] MEDS ORDERED: BISACODYL 5 MG (DULCOLAX) TABLET PO PRN (10:15)
--- NOTE | 2022-01-20 10:23 | Physical Therapy Evaluation ---
PT Evaluation-General Medical Diagnosis Admission Date Jan 20, 2022 at 09:30 Medical Diagnosis: R TKA Onset Date: Jan 18, 2022 Therapy Diagnosis Therapy Diagnosis: weakness, debility, s/p R TKA Precautions Precautions/Isolations: Fall Prevention, Standard Precautions Weight Bear Status Right Lower Extremity: Right Weight Bearing/Tolerated Left Lower Extremity: Left Full Weight Bearing Referral Physician: Chidi Reason for Referral: Evaluation/Treatment Medical History Pertinent Medical History: HTN Current History Patient s/p elective R TKA on 01/18/22 Reviewed History: Yes Social History Home: Single Level Current Living Status: Spouse Entry Into Home: Level Entry Prior Prior Level of Function SCALE: Activities may be completed with or without assistive devices. 0-Preholevzx-cbvsutd completes the activity by him/herself with no assistance from a helper. 5-Set-up or Clean-up Assistance-helper sets up or cleans up; patient completes activity. Bi[place] assists only prior to or following the activity. 4-Supervision or Touching Assistance-helper provides verbal cues and/or touching/steadying and/or contact guard assistance as patient completes activity. Assistance may be provided throughout the activity or intermittently. 3-Partial/Moderate Assistance-helper does LESS THAN HALF the effort. Biola lifts, holds or supports trunk or limbs, but provides less than half the effort. 2-Substantial/Maximal Assistance-helper does MORE THAN HALF the effort. Bi[place] lifts or holds trunk or limbs and provides more than half the effort. 7-Mudzhehzr-itdeyo does ALL the effort. Patient does none of the effort to complete the activity. Or, the assistance of 2 or more helpers is required for the patient to complete the activity. If activity was not attempted, code reason: 7-Patient Refused. 9-Not Applicable-not attempted and the patient did not perform the activity before the current illness, exacerbation or injury. 10-Not Attempted due to Environmental Limitations-(lack of equipment, weather restraints, etc.). 88-Not Attempted due to Medical Conditions or Safety Concerns. Bed Mobility: 6 Transfers (B,C,W/C): 6 Gait: 6 Indoor Mobility (Ambulation): Independent Prior Devices Use: None PT Evaluation-Current Subjective Patient presented sitting in his chair and agreed to participate in physical therapy. Pt/Family Goals to be independent at home Objective Patient Orientation: Person, Place, Time, Situation ROM/Strength ROM Lower Extremities L LE: WFL R LE: knee 23-88; all others WFL Strength Lower Extremities L LE: 4/5 strength grossly R LE: not tested due to recent surgery Integumentary/Posture Bowel Incontinence: No Bladder Incontinence: No Neuromuscular (Tone, Coordination, Reflexes) grossly intact Sensory Vision: Functional Hearing: Functional Transfers Roll Left & Right (QC): 6 Sit to Lying (QC): 4 Lying to Sitting/Side of Bed(Q: 4 Sit to Stand (QC): 3 Chair/Pxd-ep-Jfrfz Xfer(QC): 3 Toilet Transfer (QC): 3 Car Transfer (QC): 3 Patient is independent for bed mobility, CGA for sitting to supine and supine to sitting, and mod assist for all other transfers. Gait Does the Patient Walk?: Yes Mode of Locomotion: Walk Anticipated Mode of Locomotion: Walk Walk 10 feet (QC): 4 Walk 50 ft with 2 Turns(QC): 4 Walk 150 ft (QC): 4 Walking 10ft/uneven surface-QC: 4 Distance: 150' Gait Assistive Device: FWW Comments/Gait Description Patient ambulated for 150' with steadying assist. Patient ambulated with step to gait pattern and did not put very much weight through his R LE. Wheelchair Training Does the Pt Use a Wheelchair?: No Wheel 50 ft with 2 turns (QC): 09 Wheel 150 ft (QC): 09 Type of Wheelchair: N/A Stairs 1 Step (curb) (QC): 88 4 Steps (QC): 88 12 Steps (QC): 88 Balance Sitting Static: Normal Sitting Dynamic: Normal Standing Static: Normal Standing Dynamic: Fair Picking up an Object (QC): 10 Assessment/Needs Patient required steadying assist for ambulation due to balance difficulties and weakness in R LE. Patient ambulates very slow and does not put very much weight through his R LE due to pain and weakness. Patient requires mod assist for sit to stand transfers and patient has difficulty leaning forward to come to a stand. Patient fatigues quickly with activity and reports that before the surgery he was not moving around very much due to increased pain in his R LE. Patient is lacking 23 degrees of extension and significant focus should be places on extension exercises during rehab stay. Rehab Potential: Fair PT Short Term Goals Short Term Goals Time Frame: Jan 27, 2022 Sit to lyin (SBA) Lying to sitting on side of be: 4 (SBA) Sit to stand: 3 (min) Chair/xei-cg-sjpng transfer: 3 (min) Toilet transfer: 3 (min) Walk 10 feet: 4 Walk 50 feet with two turns: 4 Walk 150 feet: 4 1 step (curb): 3 PT Birth Attendant Goals Prison Goals PT Prison Goals Time Frame: Feb 10, 2022 Roll Left & Right (QC): 6 Sit to Lying (QC): 6 Lying-Sitting on Side/Bed(QC): 6 Sit to Stand (QC): 6 Chair/Vhx-ue-Phlev Xfer(QC): 6 Toilet Transfer (QC): 6 Car Transfer (QC): 6 Does the Patient Walk: Yes Walk 10 feet (QC): 6 Walk 50ft with 2 Turns (QC): 6 Walk 150 ft (QC): 6 Walking 10ft on Uneven Surface: 6 1 Step (curb) (QC): 6 4 Steps (QC): 4 12 Steps (QC): 4 Picking up an Object (QC): 6 Does the Pt use WC or Scooter?: No Wheel 50 feet with 2 turns (QC: 09 Type: N/A Wheel 150 feet: 09 Type: N/A PT Plan Problem List Problem List: Activity Tolerance, Functional Strength, Safety, Balance, Gait, Transfer, ROM Treatment/Plan Treatment Plan: Continue Plan of Care Treatment Plan: Concurrent Therapy, Education, Functional Activity Praful, Functional Strength, Group Therapy, Gait, Safety, Therapeutic Exercise, Transfers Treatment Duration: Feb 10, 2022 Frequency: At least 5 of 7 days/Wk (IRF) Estimated Hrs Per Day: 1.5 hours per day Patient and/or Family Agrees t: Yes Safety Risks/Education Patient Education: Gait Training, Transfer Techniques, Steps, Reviewed Precautions, Safety Issues Teaching Recipient: Patient Teaching Methods: Demonstration, Discussion Response to Teaching: Reinforcement Needed Discharge Recommendations Plan Patient will completed seated, supine, and standing exercises, ambulation, stair training, and balance training to allow patient to return to [facility] for safe return to home. Therapy Discharge Recommendati: Home & Family, Post Acute PT Time/GCodes Time In: 910 Time Out: 945 Total Billed Treatment Time: 35 Total Billed Treatment 1 Visit EVMod 20 min FA 15 min ARIADNA LY PT Jan 20, 2022 10:23
[2022-01-20 11:05] LABS: BASOPHILS # (AUTO) 0.1 10^3/uL (0.0-0.1); BASOPHILS % (AUTO) 1 % (0-10)
[2022-01-20 11:07] LABS: EOSINOPHILS # (AUTO) 0.4 10^3/uL (0.0-0.3); EOSINOPHILS % (AUTO) 4 % (0-10); HEMATOCRIT 36 % (40-54); LYMPHOCYTES # (AUTO) 1.9 10^3/uL (1.0-4.0); LYMPHOCYTES % (AUTO) 18 % (12-44); MEAN CORPUSCULAR HEMOGLOBIN 32 pg (25-34); MEAN CORPUSCULAR HGB CONC 33 g/dL (32-36); MEAN CORPUSCULAR VOLUME 96 fL (80-99); MONOCYTES # (AUTO) 1.2 10^3/uL (0.0-1.0); MONOCYTES % (AUTO) 11 % (0-12); NEUTROPHILS # (AUTO) 6.9 10^3/uL (1.8-7.8); NEUTROPHILS % (AUTO) 66 % (42-75); PLATELET COUNT 112 10^3/uL (130-400); WHITE BLOOD COUNT 10.4 10^3/uL (4.3-11.0)
--- NOTE | 2022-01-20 11:09 | Occupational Therapy Eval ---
OT Evaluation-General/PLF Medical Diagnosis Admission Date Jan 20, 2022 at 09:30 Medical Diagnosis: R TKA Onset Date: Jan 18, 2022 Therapy Diagnosis Therapy Diagnosis: Decreased ADL status, weakness Precautions Precautions/Isolations: Fall Prevention, Standard Precautions Referral Physician: Chidi Medical History Pertinent Medical History: HTN Additional Medical History L TKA, HTN, BPH, arthritis Current History s/p R TKA 01/18/22 Social History Home: Single Level Current Living Status: Spouse Entry Into Home: Level Entry ADL-Prior Level of Function SCALE: Activities may be completed with or without assistive devices. 8-Cxogvgurka-bahltsk completes the activity by him/herself with no assistance from a helper. 5-Set-up or Clean-up Assistance-helper sets up or cleans up; patient completes activity. [place] assists only prior to or following the activity. 4-Supervision or Touching Assistance-helper provides verbal cues and/or touching/steadying and/or contact guard assistance as patient completes activity. Assistance may be provided throughout the activity or intermittently. 3-Partial/Moderate Assistance-helper does LESS THAN HALF the effort. [place] lifts, holds or supports trunk or limbs, but provides less than half the effort. 2-Substantial/Maximal Assistance-helper does MORE THAN HALF the effort. [place] lifts or holds trunk or limbs and provides more than half the effort. 8-Cebhsemos-swxywm does ALL the effort. Patient does none of the effort to complete the activity. Or, the assistance of 2 or more helpers is required for the patient to complete the activity. If activity was not attempted, code reason: 7-Patient Refused. 9-Not Applicable-not attempted and the patient did not perform the activity before the current illness, exacerbation or injury. 10-Not Attempted due to Environmental Limitations-(lack of equipment, weather restraints, etc.). 88-Not Attempted due to Medical Conditions or Safety Concerns. ADL PLOF Comments Pt reports IND with ADLs and functional mobility at PLOF, no AD/AE. 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 Self Care: Independent Functional Cognition: Independent DME/Equipment: Bath Chair (built in), Shower, Tall Toilet (comfort height toilet) OT Current Status Subjective Pt agreeable to OT evaluation and tx. Mental Status/Objective Patient Orientation: Person, Place, Situation Attachments: Polar Pack (post tx) Current Glasses/Contacts: No Hearing Aids: No Dentures/Partials: No Hand Dominance: Right Upper Extremity ROM WFL, BUE shoulder flexion to approx 160 degrees Upper Extremity Coordination WFL Upper Extremity Sensation WFL Upper Extremity Strength grossly 4/5. Pt reports decreased strength after COVID-19. ADL-Treatment Eating (QC): 6 (IND with breakfast per pt report.) Oral Hygiene (QC): 4 (SBA standing at sink.) Shower/Bathe Self (QC): 3 (Min A with feet and buttocks.) Upper Body Dressing (QC): 5 (set up) Lower Body Dressing (QC): 3 (Min A overall. Assist with threading RLE, pt able to thread L. Slight assist with pant hike due to damp skin post shower.) On/Off Footwear (QC): 2 (Pt able to doff L gripper sock, assist doffing R. Assist donning bilateral.) Toileting Hygiene (QC): 3 (Min A. Assist with hygiene, pt able to manage clothing.) Other Treatments Pt in therapy gym post PT eval/tx. Pt agreeable to OT evaluation/tx. Pt stood from therapy mat, min A from elevated surface, then performed functional mobility to his room, [facility], slow pace using FWW. Pt transferred to MI, doffed clothes, completed shower, then donned clothes. Pt required max A to stand from MI, pt stood at sink to complete oral care, SBA, then used FWW to transfer to recliner. Pt required cues to keep walker close by throughout transfer, as he tried to set it off to the side. Pt able to reach back for arm rests, but continued to "plop" into the chair abruptly. Pt then grimaced in pain. Pt educated on slowly lowering himself using his arms in order to decrease pain. Post tx, pt seated in recliner, call light in reach and all needs met. Education OT Patient Education: Correct positioning, Energy conservation, Modified ADL techniques, Progress toward Goal/Update tx plan, Purpose of tx/functional activities, Rehab process, Safety issues, Transfer techniques Teaching Recipient: Patient Teaching Methods: Discussion Response to Teaching: Verbalize Understanding, Reinforcement Needed OT Short Term Goals Short Term Goals Time Frame: Jan 29, 2022 Toileting hygiene: 4 Shower/bathe self: 4 Lower body dressin Putting on/taking off footwear: 3 OT Biochemist Goals Chcf Goals Time Frame: Feb 12, 2022 Eating (QC): 6 Oral Hygiene (QC): 6 Toileting Hygiene (QC): 6 Shower/Bathe Self (QC): 6 Upper Body Dressing (QC): 6 Lower Body Dressing (QC): 6 On/Off Footwear (QC): 6 Additional Goals: 1-Demonstrate ADL Tasks, 2-Verbalize Understanding, 3- ImproveStrength/Praful 1=Demonstrate adherence to instructed precautions during ADL tasks. 2=Patient will verbalize/demonstrate understanding of assistive devices/modifications for ADL. 3=Patient will improve strength/tolerance for activity to enable patient to perform ADL's. OT Education/Plan Problem List/Assessment Assessment: Decreased Activ Tolerance, Decreased UE Strength, Impaired Funct Balance, Impaired I ADL's, Impaired Self-Care Skills Discharge Recommendations Plan/Recommendations: Continue POC Treatment Plan/Plan of Care Patient would benefit from OT for education, treatment and training to promote independence in ADL's, mobility, safety and/or upper extremity function for ADL's. Plan of Care: ADL Retraining, Functional Mobility, UE Funct Exercise/Act Treatment Duration: Feb 12, 2022 Frequency: At least 5 of 7 days/Wk (IRF) Estimated Hrs Per Day: 1.5 hours per day Agreement: Yes Rehab Potential: Fair Time/GCodes Start Time: 09:45 Stop Time: 10:45 Total Time Billed (hr/min): 60 Billed Treatment Time 1, EVM (10'), ADL 3 (50') EDWIGE CHAIREZ OT Jan 20, 2022 11:09
[2022-01-20] MEDS ORDERED: [UNRECOGNIZED DRUG - REMARK] PO SCH (11:19)
[2022-01-20] MEDS ORDERED: [UNRECOGNIZED DRUG - REMARK] PO SCH (11:19)
[2022-01-20 11:24] LABS: ALBUMIN 3.7 GM/DL (3.2-4.5); BILIRUBIN,TOTAL 0.9 MG/DL (0.1-1.0); CALCIUM 8.7 MG/DL (8.5-10.1); CREATININE SERUM 1.05 MG/DL (0.60-1.30); POTASSIUM 3.7 MMOL/L (3.6-5.0); TOTAL PROTEIN 6.9 GM/DL (6.4-8.2)
--- NOTE | 2022-01-20 12:13 | Progress Note ---
ALMA RUSSELL 01/20/22 1213: Progress Note CC: Debility following right knee replacement HPI: Status post knee replacement with Dr. Nino POD #2. 02/28 right knee pain. Tolerating pain medications. Having normal bowel movements, requiring laxatives for help. Urinating without issues. Past Medical History Osteoarthritis Hypercholesterolemia Benign Prostatic Hyperplasia Hypertension Obstructive Sleep Apnea- uses CPAP regularly Allergies Penicillin Allergy (sores in mouth) Seasonal allergies Home Medications Allopurinol (Allopurinol), 300 MG PO DAILY Aspirin (Aspirin EC), 81 MG PO BID Celecoxib (Celebrex), 200 MG PO BID Doxazosin Mesylate (Doxazosin Mesylate), 2 MG PO DAILY Omeprazole Magnesium (Prilosec Otc), 20 MG PO DAILY Rosuvastatin Calcium (Rosuvastatin Calcium), 10 MG PO DAILY Telmisartan (Telmisartan), 80 MG PO DAILY Triamterene/Hydrochlorothiazid (Triamterene-Hctz 37.5-25 mg Tb), 0.5 EA PO DAILY Social Hx: Smoke- Former smoker (quit in 2002) smoked for around 38 years, estimated 100 pack year smoker EtOH- Drinks an average of 3 Rum and Cokes ( 1 shot of rum per coke) per night, 3-4 nights per week to his for 42 years 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 HEENT: No decrease in hearing or change in vision. CVS: No chest pain, edema, or palpitations. Resp: No cough or shortness of breath. GI: No nausea, vomiting, diarrhea, constipation, abdominal pain, or bloody stools. : No urinary incontinence, dysuria, or hematuria Neuro: No anxiety or depression. Extremities: Decreased ROM on Right knee from knee replacement surgery. No decreased ROM in other extremities. Exam: General Appearance: No apparent distress, WD/WN. HEENT: PERRLA, EOMI, moist mucous membranes, anicteric sclera bilaterally. Respiratory: Lungs clear, normal breath sounds, no accessory muscle use, no respiratory distress. CVS: Regular rate and rhythm, no murmur, no edema GI: Normoactive bowel sounds, no organomegaly, no pulsatile mass, abdomen nontender Neuro: Alert, Oriented x3, No motor/sensory deficits, normal mood/affect, CN II-XII normal as tested Extremity: Decreased ROM on right knee from knee replacement surgery. No decreased ROM in other extremities. 3/2 WBC Hgb 12.0 Plt 112 Assessment: Debility following right knee replacement, POD #2 Post Op Constipation Hypertension Post Op Anemia Post Op Thrombocytopenia Obstructive Sleep Apnea Plan: Pain control Bowel regimen Monitor BP Monitor Incision site Review labs (WBC, Hgb, Plt, electrolytes) CPAP MAVIS VARMA DO 01/21/22 0535: Supervisory-Addendum Brief Verification & Attestation Participated in pt care: history, MDM, physical Personally performed: exam, history, MDM, supervision of care Care discussed with: Medical Student Procedures: n/a Results interpretation: Verified all documentation Verification and Attestation of Medical Student E/M Service A medical student performed and documented this service in my presence. I reviewed and verified all information documented by the medical student and made modifications to such information, when appropriate. I personally performed the physical exam and medical decision making. Mavis Varma Jan 21, 2022,05:35 ALMA RUSSELL Jan 20, 2022 12:13 MAVIS VARMA DO Jan 21, 2022 05:35
--- NOTE | 2022-01-20 12:44 | ST Cognitive Linguistic Eval ---
Speech Evaluation-General Medical Diagnosis R TKA Onset Date: Jan 18, 2022 Therapy Diagnosis Therapy Diagnosis: Cognitive Linguistic Skills WNL Precautions Precautions: Fall Precautions/Isolations: Fall Prevention, Standard Precautions Referral Referring Physician: Dr. Mavis Murillo Reason for Referral: Evaluation/Treatment Medical History Pertinent Medical History: HTN Current History The patient is a 71 year-old male with a past medical history of arthritis and HTN, who was admitted to the ARU following a right knee replacement. Reviewed History: Yes Social History Current Living Status: Spouse Speech PLF-Current Status Prior Level of Function The patient denied prior or current concerns with his speech, language, cognition, voice, or swallowing abilities. Subjective The patient was seated upright in his recliner, awake and alert upon entrance to his room by the clinician. The patient greeted the clinician appropriately and was agreeable to participation in the cognitive linguistic evaluation. Language Eval: Auditory Comprehends Simple Yes/No Ques: Functional Indent/Objects Multiple Nguyen: Functional Ident/Pics in Multiple Nguyen: Functional Follows 1-Step Commands: Functional Follows Complex Directions: Functional Follows General Conversations: Functional Language Eval: Verbal Language Completes Spontaneous Greeting: Functional Produces Auto, Serial Info: Functional Imitates Simple Words/Phrases: Functional Word Finding: Functional Requests Basic Needs: Functional States Basic Personal Info: Functional Expresses Complex Ideas: Functional Language Evaluation: Reading Follows Simple Written Direct: Functional Language Evaluation: Writing Writes to Simple Dictation: Functional Cognitive Patient Orientation The patient is independently oriented to self, location, city, month, day of week, date, and year. Objective Cognitive Domain Attention: WNL Memory: WNL Problem Solving: Functional Executive Functions: WNL Composite Severity Rating: WNL Objective Formal/Standardized Tests [facility] Mental Status ([facility]) Results The patient demonstrated high accuracy with the [facility] evaluation correlating to neurocognitive function within normal limits. Oral Motor/Speech Production The patient does not demonstrate dysarthria or apraxia of speech. The patient remained 100% intelligible in known and unknown contexts. Impression The patient displays cognitive linguistic skills within normal limits. The patient is able to fluently communicate his wants and needs to staff and others. Speech Patient Assess Expression of Ideas/Wants: Expression (4) Understanding Verbal Content: Understands (4) Brief Interview-Mental Status: Yes Repetition of Three Words: Three (3) Temporal Orientation: Year: Correct (3) Temporal Orientation: Month: Accurate within 5 days(2) Temporal Orientation: Day: Correct (1) Recall : Wear to say "Sock": Yes, no cue required (2) Recall : Color: Yes, no cue required (2) Recall : Bed: Yes, no cue required (2) Memory/Recall Ability: Current season, Staff names and faces, That he or she is in a hsp/hsp unit Speech-Plan Treatment Plan Speech Therapy Treatment Plan: Discontinue ST Treatment Duration: Jan 20, 2022 Frequency: 1 time per week Estimated Hrs Per Day: .5 hour per day Rehab Potential: Good Pt/Family Agrees to Plan: Yes Safety Risks/Education Teaching Recipient: Patient Teaching Methods: Discussion Response to Teaching: Verbalize Understanding Education Topics Provided: Plan of Care, Results of SLUMS Time Speech Therapy Time In: 10:45 Speech Therapy Time Out: 11:30 Total Billed Time: 45 Billed Treatment Time 1, SANTOSH HAMEED [facility] Jan 20, 2022 12:44
--- NOTE | 2022-01-20 12:59 | Occupational Ther Daily Note ---
OT Current Status-Daily Note Subjective Pt alert, in bathroom. Pt agrees to therapy. No c/o pain only when mobile. Mental Status/Objective Patient Orientation: Person, Place, Time, Situation Attachments: IV ADL-Treatment Max A for lower body dressing. Max A for toileting. Max A for toilet transfer. After session, pt sitting in recliner with call light/phone in reach. All needs met in room. Therapy Code Descriptions/Definitions Functional [place] Measure: 0=Not Assessed/NA 4=Minimal Assistance 1=Total Assistance 5=Supervision or Setup 2=Maximal Assistance 6=Modified [place] 3=Moderate Assistance 7=Complete IndependenceSCALE: Activities may be completed with or without assistive devices. 0-Fqlukfywlr-pxtmghv completes the activity by him/herself with no assistance from a helper. 5-Set-up or Clean-up Assistance-helper sets up or cleans up; patient completes activity. [place] assists only prior to or following the activity. 4-Supervision or Touching Assistance-helper provides verbal cues and/or touching/steadying and/or contact guard assistance as patient completes activity. Assistance may be provided throughout the activity or intermittently. 3-Partial/Moderate Assistance-helper does LESS THAN HALF the effort. [place] lifts, holds or supports trunk or limbs, but provides less than half the effort. 2-Substantial/Maximal Assistance-helper does MORE THAN HALF the effort. [place] lifts or holds trunk or limbs and provides more than half the effort. 5-Jiymzrzwb-hsfean does ALL the effort. Patient does none of the effort to complete the activity. Or, the assistance of 2 or more helpers is required for the patient to complete the activity. If activity was not attempted, code reason: 7-Patient Refused. 9-Not Applicable-not attempted and the patient did not perform the activity before the current illness, exacerbation or injury. 10-Not Attempted due to Environmental Limitations-(lack of equipment, weather restraints, etc.). 88-Not Attempted due to Medical Conditions or Safety Concerns. Lower Body Dressing (QC): 2 Toileting Hygiene (QC): 2 Toilet Transfer (QC): 2 OT Short Term Goals Short Term Goals Time Frame: Jan 29, 2022 Toileting hygiene: 4 Shower/bathe self: 4 Lower body dressin Putting on/taking off footwear: 3 OT Usp Goals Usp Goals Time Frame: Feb 12, 2022 Eating (QC): 6 Oral Hygiene (QC): 6 Toileting Hygiene (QC): 6 Shower/Bathe Self (QC): 6 Upper Body Dressing (QC): 6 Lower Body Dressing (QC): 6 On/Off Footwear (QC): 6 Additional Goals: 1-Demonstrate ADL Tasks, 2-Verbalize Understanding, 3- ImproveStrength/Praful 1=Demonstrate adherence to instructed precautions during ADL tasks. 2=Patient will verbalize/demonstrate understanding of assistive devices/modifications for ADL. 3=Patient will improve strength/tolerance for activity to enable patient to perform ADL's. OT Education/Plan Problem List/Assessment Assessment: Decreased Activ Tolerance, Impaired Self-Care Skills Discharge Recommendations Plan/Recommendations: Continue POC Treatment Plan/Plan of Care Patient would benefit from OT for education, treatment and training to promote independence in ADL's, mobility, safety and/or upper extremity function for ADL's. Plan of Care: ADL Retraining, Functional Mobility, UE Funct Exercise/Act Treatment Duration: Feb 12, 2022 Frequency: At least 5 of 7 days/Wk (IRF) Estimated Hrs Per Day: 1.5 hours per day Agreement: Yes Rehab Potential: Good Time/GCodes Start Time: 12:45 Stop Time: 13:00 Total Time Billed (hr/min): 15 Billed Treatment Time 1 visit-ADL 1 (15 min) ANGELA LAMBERT Jan 20, 2022 12:59
--- NOTE | 2022-01-20 13:02 | Physical Therapy Daily Note ---
PT Daily Note-Current Subjective Pt sitting in recliner w/Polar Pack on and reporting extreme pain in R knee. Nurse is aware and pain med. had already been given. Pain Numeric Pain Scale: 10-Worst Possible Pain Location: Right Location Body Site: Knee Pain Description: Stabbing, Sharp Comment: Pt reports cannot get comfortable. Mental Status Patient Orientation: Person, Place, Time, Situation Attachments: Polar Pack Transfers SCALE: Activities may be completed with or without assistive devices. 0-Xjznrgezmb-bvwdqje completes the activity by him/herself with no assistance from a helper. 5-Set-up or Clean-up Assistance-helper sets up or cleans up; patient completes activity. [place] assists only prior to or following the activity. 4-Supervision or Touching Assistance-helper provides verbal cues and/or touching/steadying and/or contact guard assistance as patient completes activity. Assistance may be provided throughout the activity or intermittently. 3-Partial/Moderate Assistance-helper does LESS THAN HALF the effort. [place] lifts, holds or supports trunk or limbs, but provides less than half the effort. 2-Substantial/Maximal Assistance-helper does MORE THAN HALF the effort. [place] lifts or holds trunk or limbs and provides more than half the effort. 8-Mcaacodwf-qajwob does ALL the effort. Patient does none of the effort to complete the activity. Or, the assistance of 2 or more helpers is required for the patient to complete the activity. If activity was not attempted, code reason: 7-Patient Refused. 9-Not Applicable-not attempted and the patient did not perform the activity before the current illness, exacerbation or injury. 10-Not Attempted due to Environmental Limitations-(lack of equipment, weather restraints, etc.). 88-Not Attempted due to Medical Conditions or Safety Concerns. Sit to Stand (QC): 3 Weight Bearing Right Lower Extremity: Right Weight Bearing/Tolerated Left Lower Extremity: Left Full Weight Bearing Gait Training Does the Patient Walk?: Yes Distance: 100' x2 Walk 10 feet (QC): 4 Walk 50 ft with 2 Turns(QC): 4 Gait Persons Needed: 1 Gait Assistive Device: FWW Pt walks w/flexed R knee and reports R hip. MANAGER HEMATOLOGY encourages WBAT to increase ROM on R knee and decrease hip pain. Treatments TF to standing to relieve discomfort. Pt reports improvement. Pt uses BR then amb. in hallway before returning to room to rest. MANAGER HEMATOLOGY positions pt w/pillow before repositioning to comfort. All needs met, call light in hand. Assessment Current Status: Fair Progress Pain limits pt at this time. Pain management includes pain med as well as proper positioning both in walking and sitting for comfort. PT Short Term Goals Short Term Goals Time Frame: Jan 27, 2022 Sit to lyin (SBA) Lying to sitting on side of be: 4 (SBA) Sit to stand: 3 (min) Chair/qpi-qb-kveno transfer: 3 (min) Toilet transfer: 3 (min) Walk 10 feet: 4 Walk 50 feet with two turns: 4 Walk 150 feet: 4 1 step (curb): 3 PT Halfway Goals Winding Lathe Operator Goals PT Winding Lathe Operator Goals Time Frame: Feb 10, 2022 Roll Left & Right (QC): 6 Sit to Lying (QC): 6 Lying-Sitting on Side/Bed(QC): 6 Sit to Stand (QC): 6 Chair/Gut-lu-Htxuu Xfer(QC): 6 Toilet Transfer (QC): 6 Car Transfer (QC): 6 Does the Patient Walk: Yes Walk 10 feet (QC): 6 Walk 50ft with 2 Turns (QC): 6 Walk 150 ft (QC): 6 Walking 10ft on Uneven Surface: 6 1 Step (curb) (QC): 6 4 Steps (QC): 4 12 Steps (QC): 4 Picking up an Object (QC): 6 Does the Pt use WC or Scooter?: No Wheel 50 feet with 2 turns (QC: 09 Type: N/A Wheel 150 feet: 09 Type: N/A PT Plan Problem List Problem List: Activity Tolerance, Functional Strength, Gait, Transfer Treatment/Plan Treatment Plan: Continue Plan of Care Treatment Plan: Concurrent Therapy, Education, Functional Activity Praful, Functional Strength, Group Therapy, Gait, Safety, Therapeutic Exercise, Transfers Treatment Duration: Feb 10, 2022 Frequency: At least 5 of 7 days/Wk (IRF) Estimated Hrs Per Day: 1.5 hours per day Patient and/or Family Agrees t: Yes Safety Risks/Education Patient Education: Gait Training, Transfer Techniques, Correct Positioning, Safety Issues Teaching Recipient: Patient Teaching Methods: Discussion Response to Teaching: Verbalize Understanding Time/GCodes Time In: 1130 Time Out: 1200 Total Billed Treatment Time: 30 Total Billed Treatment 1, GT (20m) & FA (10m) DANNY BURT PTA Jan 20, 2022 13:02
[2022-01-20] MEDS: DOCUSATE SODIUM 100 MG (COLACE) CAP PO SCH ×2 (13:08→19:49)
[2022-01-20 14:20] VITALS: BP 128/60
[2022-01-20] MEDS: polyethylene glycoL POWDER 17 GM (MIRALAX) PACK PO SCH ×2 (14:37→19:44)
[2022-01-20] MEDS: SENNA W/DOCUSATE (SENOKOT S) TABLET PO SCH ×2 (14:38→19:49)
[2022-01-20] MEDS: ASPIRIN E.C. 81 MG (ECOTRIN) TAB PO SCH (17:13)
[2022-01-20] MEDS: CELECOXIB 100 MG (CeleBREX) CAP PO SCH (19:49)
[2022-01-20 20:17] VITALS: BP 108/63
[2022-01-21 05:38] LABS: BASOPHILS % (AUTO) 1 % (0-10); EOSINOPHILS # (AUTO) 0.5 10^3/uL (0.0-0.3); EOSINOPHILS % (AUTO) 8 % (0-10); HEMATOCRIT 32 % (40-54); HEMOGLOBIN 10.6 g/dL (13.3-17.7); LYMPHOCYTES # (AUTO) 1.5 10^3/uL (1.0-4.0); LYMPHOCYTES % (AUTO) 23 % (12-44); MEAN CORPUSCULAR HEMOGLOBIN 33 pg (25-34); MEAN CORPUSCULAR HGB CONC 33 g/dL (32-36); MEAN CORPUSCULAR VOLUME 98 fL (80-99); MEAN PLATELET VOLUME 11.6 fL (9.0-12.2); MONOCYTES # (AUTO) 0.9 10^3/uL (0.0-1.0); MONOCYTES % (AUTO) 15 % (0-12); NEUTROPHILS # (AUTO) 3.5 10^3/uL (1.8-7.8); NEUTROPHILS % (AUTO) 54 % (42-75); PLATELET COUNT 91 10^3/uL (130-400); WHITE BLOOD COUNT 6.5 10^3/uL (4.3-11.0)
[2022-01-21 05:49] LABS: ALBUMIN 3.3 GM/DL (3.2-4.5); POTASSIUM 4.1 MMOL/L (3.6-5.0)
[2022-01-21 05:51] LABS: CALCIUM 8.8 MG/DL (8.5-10.1)
[2022-01-21 05:52] LABS: TOTAL PROTEIN 6.2 GM/DL (6.4-8.2)
[2022-01-21 05:56] LABS: CREATININE SERUM 1.21 MG/DL (0.60-1.30)
--- NOTE | 2022-01-21 06:19 | Individualized Plan of Care ---
Individualized Plan of Care Rehab Nursing IPOC Order Admission Date Jan 20, 2022 at 09:30 Current Orders Orders Admission Order(Inpt,Obs,Sdc) (01/20/22 05:43) Vital Signs: Per Unit Policy ( 08,16,00 (01/20/22 05:43) Bk Vieira (01/20/22 05:43) Sequential Compression Device (01/20/22 05:43) Surveyor Mine-Inpt Rehab Con (01/20/22 05:43) Rehab Nursing Orders-Ipoc (01/20/22 05:43) Physical Therapy Rehab Orders (01/20/22 05:43) Occupational Therapy Rehab Ord (01/20/22 05:43) Speech Therapy Rehab Orders (01/20/22 05:43) Cbc With Automated Diff (01/21/22 06:00) Comprehensive Metabolic Panel (01/21/22 06:00) Precautions (Aru) (01/20/22 05:43) Weekly Weight WEEK (01/20/22 05:43) Rehab-Intensity Of Therapy (01/20/22 05:43) Initiate Admission Nursing Pro .admission (01/20/22 05:43) Alprazolam Tablet (Xanax Tablet) (01/20/22 05:45) Calcium Carbonate Chew Tablet (Antacid C (01/20/22 05:45) Diphenhydramine Tablet (Benadryl Tablet) (01/20/22 05:45) Docusate Sodium Capsule (Colace Capsule) (01/20/22 09:00) Docusate Sodium Capsule (Colace Capsule) (01/20/22 05:45) Bisacodyl Suppository (Dulcolax Supposit (01/20/22 05:45) Lactulose Oral Solution (Enulose Oral So (01/20/22 05:45) Na Phos/Na Biphos Enema (Fleet Enema Parish (01/20/22 05:45) Guaifenesin/Codeine Syrup (Robitussin Ac (01/20/22 05:45) Loperamide Tablet (Imodium Tablet) (01/20/22 05:45) Melatonin Tablet (Melatonin Tablet) (01/20/22 05:45) Polyethylene Glycol Powder Pkt (Miralax (01/20/22 09:00) Ondansetron Oral Dissolve Tab (Zofran (01/20/22 05:45) Senna S Tablet (Senokot S Tablet) (01/20/22 09:00) Acetaminophen Tablet/Caplet (Tylenol T (01/20/22 05:45) Code/Resuscitation (01/20/22 05:43) Initiate Admission Nursing Pro .admission (01/20/22 05:43) Sequential Compression Device ONCE (01/20/22 05:43) Admission Arrival Bed Request (01/20/22 09:38) Dressing Order (Intervention) DAILY PRN (01/20/22 10:12) Iv Convert To Heplock (Order) (01/20/22 10:12) General/Regular (01/20/22 Lunch) Pantoprazole Tablet (Protonix Tablet) (01/21/22 09:00) (Nf) Triamterene/Hydrochlorothiazid (Tri (01/21/22 09:00) Allopurinol Tablet (Zyloprim Tablet) (01/21/22 09:00) Aspirin Enteric Coated Tablet (Ecotrin T (01/20/22 18:00) Celecoxib Capsule (Celebrex Capsule) (01/20/22 21:00) Bisacodyl Tablet (Dulcolax Tablet) (01/20/22 10:15) Magnesium Hydroxide Oral Susp (Mom Oral (01/20/22 10:15) Therapeutic Multivitamin Tab (Vitamins, (01/21/22 07:00) Patient May Use Own Meds, All (Patient M (01/20/22 10:15) Rosuvastatin Tablet (Crestor Tablet) (01/21/22 09:00) Acetaminophen Tablet (Tylenol Tablet) (01/20/22 10:15) Ondansetron Injection (Zofran Injectio (01/20/22 10:15) Doxazosin Tablet (Cardura Tablet) (01/21/22 09:00) Morphine Injection (Morphine Injection (01/20/22 10:15) Oxycodone Immediate Rel Tablet (Oxyir Ta (01/20/22 10:15) Incentive Spirometry Initial (01/20/22 10:12) Incentive Spirometry (Nursing) Q2H (01/20/22 10:12) Cbc With Automated Diff (01/20/22 10:15) Comprehensive Metabolic Panel (01/20/22 10:15) (Nf) Telmisartan (01/20/22 11:19) (Nf) Omeprazole Magnesium (Prilosec Otc) (01/20/22 11:19) Pantoprazole Tablet (Protonix Tablet) (01/21/22 09:00) Consult Orthopedic Surgery (01/20/22 12:07) Patient Visit (01/20/22 ) Speech Sound Lang Comp (01/20/22 ) Treat. Speech/Lang/Voice (01/20/22 ) Patient Visit (01/20/22 ) Pt Eval Moderate Complexity (01/20/22 ) Functional Activities, Ea 15 (01/20/22 ) Oxycodone Immediate Rel Tablet (Oxyir Ta (01/20/22 13:15) Patient Visit (01/20/22 ) Gait Training, Ea 15 Min (01/20/22 ) Functional Activities, Ea 15 (01/20/22 ) (Nf) Telmisartan (01/21/22 09:00) Oxycodone Immediate Rel Tablet (Oxyir Ta (01/21/22 13:15) Patient Visit (01/21/22 ) Functional Activities, Ea 15 (01/21/22 ) Gait Training, Ea 15 Min (01/21/22 ) Exercise Therap, Ea 15 Min (01/21/22 ) Rehab Nursing Orders: Ongoing Assess. of Cognitive Status, Ongoing Assess. of Function Status, Bladder Management, Bladder Scan, Bladder Training, Bowel Management, Bowel Training, Disease Management & Educaiton, DVT Prophylaxis, Fall Prevention, Fluid/Electrolyte/Nutrition Mgmt, Infection Prevention, Medication Management & Education, Management of Risks & Complications, Manageme nt of Skin Intergrity, Nutrition Management, Pain Management, Patient/Family Support, Safety Management, Weight Bearing Precaution, Wound Management Intensity of Therapy to be met Patient to be seen: Min.3h per day/5 of 7d PT IPOC Problem List: Activity Tolerance, Functional Strength, Gait, Transfer Treatment Plan: Continue Plan of Care Concurrent Therapy, Education, Functional Activity Praful, Functional Strength, Group Therapy, Gait, Safety, Therapeutic Exercise, Transfers Treatment Duration: Feb 10, 2022 Frequency: At least 5 of 7 days/Wk (IRF) Estimated Hrs Per Day: 1.5 hours per day OT IPOC Problems: Decreased Activ Tolerance, Impaired Self-Care Skills OT Treatment, Training and Edu: Yes Plan of Care: ADL Retraining, Functional Mobility, UE Funct Exercise/Act Treatment Duration: Feb 12, 2022 Frequency: At least 5 of 7 days/Wk (IRF) Estimated Hrs Per Day: 1.[address] IPOC Speech Therapy Treatment Plan: Discontinue ST Treatment Duration: Jan 20, 2022 Frequency: 1 time per week Estimated Hrs Per Day: .5 hour per day Surveyor Mine/Case Mgmt Surveyor Mine/Case Managemen: Discharge Planning Dietitian/Forestry Biology Specialist Dietitian/Forestry Biology Specialist to monitor nutritional status and make changes and/or recommendations as needed and work with speech pathology on dietary upgrades as the occur. Physician IPOC Medical Issues being managed closely and that require the 24 hour availability of a physician: Recent knee replacement in a patient with morbid obesity sleep apnea and severe deconditioning from Covid in July 2021 will require close monitoring of oxygen requirements and blood pressure levels in order to prevent decompensation Medical Issues: Bowel/Bladder Function, DVT Prophylaxis, Falls Precautions, Fluid/Electrolyte/Nutrition Balance, Infection Protection, Pain Management, Weight Bearing Precautions, Wound Care Brief Synthesis of Preadmission Screen, Post-Admission Evaluation, and Therapy Evaluations: PT and OT will focus on regaining function with the use of assistive devices and increase independence in ADLs and prevent falls to return back to independent living Medical Prognosis: Good Anticipated Length of Stay: 7 days JOHNNY VARMA DO Jan 21, 2022 06:19
--- NOTE | 2022-01-21 06:19 | PM&R Progress Note ---
Subjective HPI/CC On Admission Date Seen by Provider: Jan 21, 2022 Time Seen by Provider: 12:15 Subjective/Events-last exam 01/21/2022: Patient doing really well Working with therapy Feels like he is much improved strength claudio Labs reviewed Pain control Bowel regimen maintained Review of Systems General: Fatigue, Malaise Musculoskeletal: leg pain Objective Exam Vital Signs Vital Signs Date Time Temp Pulse Resp B/P (MAP) Pulse Ox O2 Delivery O2 Flow Rate FiO2 01/21/22 20:20 Room Air 01/21/22 19:48 37.2 55 16 120/56 (77) 95 Capillary Refill : General Appearance: No Apparent Distress, WD/WN, Chronically ill, Obese HEENT: PERRL/EOMI, Normal ENT Inspection, Pharynx Normal Neck: Full Range of Motion, Normal Inspection, Non Tender, Supple, Carotid Bruit Respiratory: Chest Non Tender, Lungs Clear, Normal Breath Sounds, No Accessory Muscle Use, No Respiratory Distress Cardiovascular: Regular Rate, Rhythm, No Edema, No Gallop, No JVD, No Murmur, Normal Peripheral Pulses Gastrointestinal: Normal Bowel Sounds, No Organomegaly, No Pulsatile Mass, Non Tender, Soft Back: Normal Inspection, No CVA Tenderness, No Vertebral Tenderness Extremity: Normal Capillary Refill, Normal Inspection, Normal Range of Motion (Except right leg), Non Tender, No Calf Tenderness, No Pedal Edema Neurologic/Psychiatric: Alert, Oriented x3, No Motor/Sensory Deficits, Normal Mood/Affect, 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 FIM Transfers Therapy Code Descriptions/Definitions Functional Pray Measure: 0=Not Assessed/NA 4=Minimal Assistance 1=Total Assistance 5=Supervision or Setup 2=Maximal Assistance 6=Modified Pray 3=Moderate Assistance 7=Complete IndependenceSCALE: Activities may be completed with or without assistive devices. 5-Mwbtcxgvcm-vtjwill completes the activity by him/herself with no assistance from a helper. 5-Set-up or Clean-up Assistance-helper sets up or cleans up; patient completes activity. [place] assists only prior to or following the activity. 4-Supervision or Touching Assistance-helper provides verbal cues and/or touching/steadying and/or contact guard assistance as patient completes activity. Assistance may be provided throughout the activity or intermittently. 3-Partial/Moderate Assistance-helper does LESS THAN HALF the effort. Tyler lifts, holds or supports trunk or limbs, but provides less than half the effort. 2-Substantial/Maximal Assistance-helper does MORE THAN HALF the effort. [place] lifts or holds trunk or limbs and provides more than half the effort. 1-Badtrdqzl-trvatv does ALL the effort. Patient does none of the effort to complete the activity. Or, the assistance of 2 or more helpers is required for the patient to complete the activity. If activity was not attempted, code reason: 7-Patient Refused. 9-Not Applicable-not attempted and the patient did not perform the activity before the current illness, exacerbation or injury. 10-Not Attempted due to Environmental Limitations-(lack of equipment, weather restraints, etc.). 88-Not Attempted due to Medical Conditions or Safety Concerns. Roll Left to Right (QC): 6 Sit to Lying (QC): 4 Sit to Stand (QC): 3 Chair/Nac-zv-Ehocb Xfer(QC): 3 Car Transfer (QC): 3 Gait Training Does the Patient Walk?: Yes Distance: 100' x2 Walk 10 feet (QC): 4 Walk 50 ft with 2 Turns(QC): 4 Walk 150 ft (QC): 4 Walking 10ft/uneven surface-QC: 4 Gait Persons Needed: 1 Gait Assistive Device: FWW Wheelchair Training Does the Pt Use a Wheelchair?: No Wheel 50 ft with 2 turns (QC): 09 Wheel 150 ft (QC): 09 Type of Wheelchair: N/A Stair Training 1 Step (curb) (QC): 88 4 Steps (QC): 88 12 Steps (QC): 88 Balance Picking up an Object (QC): 10 ADL-Treatment Eating (QC): 6 (IND with breakfast per pt report.) Oral Hygiene (QC): 4 (SBA standing at sink.) Shower/Bathe Self (QC): 3 (Min A with feet and buttocks.) Upper Body Dressing (QC): 5 (set up) Lower Body Dressing (QC): 2 On/Off Footwear (QC): 2 (Pt able to doff L gripper sock, assist doffing R. Assist donning bilateral.) Toileting Hygiene (QC): 2 Toilet Transfer (QC): 2 Assessment/Plan Assessment and Plan Assess & Plan/Chief Complaint Assessment: Status post uncomplicated right total knee replacement by Dr. Nino on 01/18/2022 [facility] on CPAP Post Covid syndrome fatigue Hypertension Hyperlipidemia BPH Acute blood loss anemia Obesity BMI 42 Plan: Rehab protocol Monitor blood pressure Pain control Constipation management 01/21/2022: Supportive care Rehab protocol CPAP (1) Status post right knee replacement (2) [facility]A on CPAP (3) Obesity (4) BPH (benign prostatic hyperplasia) (5) Hypertension (6) Hyperlipidemia (7) Acute blood loss anemia (8) Post-COVID syndrome (9) Fatigue (10) Osteoarthritis of right knee JOHNNY VARMA DO Jan 21, 2022 06:19
[2022-01-21] MEDS: MULTIVIT W/MINERALS TAB (THERAGRAN M) PO SCH (06:35)
[2022-01-21 07:20] VITALS: BP 120/57
[2022-01-21] MEDS: PANTOPRAZOLE 20 MG TABLET (PROTONIX) PO SCH (07:47)
[2022-01-21] MEDS: ASPIRIN E.C. 81 MG (ECOTRIN) TAB PO SCH ×2 (07:47→17:49)
[2022-01-21] MEDS: doxAzosin 4 MG (CARDURA) TAB PO SCH (07:47)
[2022-01-21] MEDS: DOCUSATE SODIUM 100 MG (COLACE) CAP PO SCH ×2 (07:47→20:29)
[2022-01-21] MEDS: ROSUVASTATIN 10 MG (CRESTOR) TABLET PO SCH (07:48)
[2022-01-21] MEDS: ALLOPURINOL 300 MG (ZYLOPRIM) TAB PO SCH (07:48)
[2022-01-21] MEDS: CELECOXIB 100 MG (CeleBREX) CAP PO SCH ×2 (07:48→20:29)
[2022-01-21] MEDS: [UNRECOGNIZED DRUG - REMARK] PO SCH (08:27)
[2022-01-21] MEDS: SENNA W/DOCUSATE (SENOKOT S) TABLET PO SCH ×2 (08:35→20:29)
[2022-01-21] MEDS: polyethylene glycoL POWDER 17 GM (MIRALAX) PACK PO SCH ×2 (08:35→19:35)
--- NOTE | 2022-01-21 08:59 | Occupational Ther Daily Note ---
OT Current Status-Daily Note Subjective Pt alert, laying in bed when OT entered. Pt agreed to therapy. No c/o pain reported. Mental Status/Objective Patient Orientation: Person, Place, Time, Situation ADL-Treatment Pt agreed to complete sponge bath. Pt transferred from supine to EOB with Min A. Increased time due to poor bed mobility. After set up of materials required, pt completed sponge bath while seated at EOB with close supervision due to poor dynamic sitting balance. After set up, pt donned UB dressing. Pt able to thread LLE through LB dressing, pt able to lift RLE through LB dressing, required assist to thread. Pt sit-stand from raised EOB with Mod A to FWW. Pt ambulated to bathroom using FWW and requested to use bathroom. Pt transferred to toilet with CGA and vc to reach for arm rest and sit down slowly. Pt sit-stand from toilet to FWW with Min A. Pt ambulated to bathroom sink and completed oral hygiene with CGA while standing. While standing at sink, pt completed basic grooming task of combing hair with CGA. Pt ambulated to room using FWW and transferred to recliner. Pt required VC to reach behind for arm rest, pt unable to demonstrate and sat down quickly. After session, pt sitting in recliner. All needs met and call light in reach. Therapy Code Descriptions/Definitions Functional [place] Measure: 0=Not Assessed/NA 4=Minimal Assistance 1=Total Assistance 5=Supervision or Setup 2=Maximal Assistance 6=Modified [place] 3=Moderate Assistance 7=Complete IndependenceSCALE: Activities may be completed with or without assistive devices. 9-Mxezixhyjr-rcgcqwf completes the activity by him/herself with no assistance from a helper. 5-Set-up or Clean-up Assistance-helper sets up or cleans up; patient completes activity. [place] assists only prior to or following the activity. 4-Supervision or Touching Assistance-helper provides verbal cues and/or touching/steadying and/or contact guard assistance as patient completes activity. Assistance may be provided throughout the activity or intermittently. 3-Partial/Moderate Assistance-helper does LESS THAN HALF the effort. [place] lifts, holds or supports trunk or limbs, but provides less than half the effort. 2-Substantial/Maximal Assistance-helper does MORE THAN HALF the effort. [place] lifts or holds trunk or limbs and provides more than half the effort. 5-Lvvuugkfd-ohcjsa does ALL the effort. Patient does none of the effort to complete the activity. Or, the assistance of 2 or more helpers is required for the patient to complete the activity. If activity was not attempted, code reason: 7-Patient Refused. 9-Not Applicable-not attempted and the patient did not perform the activity before the current illness, exacerbation or injury. 10-Not Attempted due to Environmental Limitations-(lack of equipment, weather restraints, etc.). 88-Not Attempted due to Medical Conditions or Safety Concerns. Education OT Patient Education: Energy conservation, Modified ADL techniques, Purpose of tx/functional activities, Safety issues, Transfer techniques Teaching Recipient: Patient Teaching Methods: Demonstration Response to Teaching: Verbalize Understanding, Return Demonstration OT Short Term Goals Short Term Goals Time Frame: Jan 29, 2022 Toileting hygiene: 4 Shower/bathe self: 4 Lower body dressin Putting on/taking off footwear: 3 OT Intermediate Goals Intermediate Goals Time Frame: Feb 12, 2022 Eating (QC): 6 Oral Hygiene (QC): 6 Toileting Hygiene (QC): 6 Shower/Bathe Self (QC): 6 Upper Body Dressing (QC): 6 Lower Body Dressing (QC): 6 On/Off Footwear (QC): 6 Additional Goals: 1-Demonstrate ADL Tasks, 2-Verbalize Understanding, 3- ImproveStrength/Praful 1=Demonstrate adherence to instructed precautions during ADL tasks. 2=Patient will verbalize/demonstrate understanding of assistive devices/modifications for ADL. 3=Patient will improve strength/tolerance for activity to enable patient to perform ADL's. OT Education/Plan Problem List/Assessment Assessment: Decreased Activ Tolerance, Decreased UE Strength, Impaired I ADL's, Impaired Self-Care Skills Discharge Recommendations Plan/Recommendations: Continue POC Treatment Plan/Plan of Care Patient would benefit from OT for education, treatment and training to promote independence in ADL's, mobility, safety and/or upper extremity function for ADL's. Plan of Care: ADL Retraining, Functional Mobility, UE Funct Exercise/Act Treatment Duration: Feb 12, 2022 Frequency: At least 5 of 7 days/Wk (IRF) Estimated Hrs Per Day: 1.5 hours per day Agreement: Yes Rehab Potential: Good Time/GCodes Start Time: 08:00 Stop Time: 09:00 Total Time Billed (hr/min): 60 Billed Treatment Time 1 visit-ADL 4 (60 mins) CHACHA VICTORIA Jan 21, 2022 08:59
[2022-01-21] MEDS ORDERED: NON-FORMULARY MEDICATION 1 EA EA (Triamterene/Hydrochlorothiazid (Triamterene-Hctz 37.5-25 PO SCH (09:00)
[2022-01-21] MEDS ORDERED: PANTOPRAZOLE 20 MG TABLET (PROTONIX) PO SCH (09:00)
[2022-01-21] MEDS ORDERED: LOSARTAN 100 MG (COZAAR) TABLET PO SCH (09:00)
--- NOTE | 2022-01-21 10:08 | Physical Therapy Daily Note ---
PT Daily Note-Current Subjective Pt. agrees to Rx. States his pain in right knee at beginning of Rx is 7/10 but at end of Rx is only 4/10. Pt. comments that he has been very sedentary since having covid about 5 mo ago. Pt. c/o fear of falling and admits he has had falls in the past. Mental Status Patient Orientation: Normal For Age Transfers SCALE: Activities may be completed with or without assistive devices. 0-Wqvfyitsrr-ohjgryq completes the activity by him/herself with no assistance from a helper. 5-Set-up or Clean-up Assistance-helper sets up or cleans up; patient completes activity. [place] assists only prior to or following the activity. 4-Supervision or Touching Assistance-helper provides verbal cues and/or touching/steadying and/or contact guard assistance as patient completes activity. Assistance may be provided throughout the activity or intermittently. 3-Partial/Moderate Assistance-helper does LESS THAN HALF the effort. [place] lifts, holds or supports trunk or limbs, but provides less than half the effort. 2-Substantial/Maximal Assistance-helper does MORE THAN HALF the effort. [place] lifts or holds trunk or limbs and provides more than half the effort. 2-Mepvqvupj-oiovpq does ALL the effort. Patient does none of the effort to complete the activity. Or, the assistance of 2 or more helpers is required for the patient to complete the activity. If activity was not attempted, code reason: 7-Patient Refused. 9-Not Applicable-not attempted and the patient did not perform the activity before the current illness, exacerbation or injury. 10-Not Attempted due to Environmental Limitations-(lack of equipment, weather restraints, etc.). 88-Not Attempted due to Medical Conditions or Safety Concerns. Roll Left & Right (QC): 6 Sit to Lying (QC): 4 Lying to Sitting/Side of Bed(Q: 4 Sit to Stand (QC): 4 Chair/Lgc-bb-Exhwj Xfer(QC): 4 much work on sit to stand as pt. hesitates to lean forward to rise and admits this too is fear of falling. seat of chair raised with pillow for ease of stance Weight Bearing Right Lower Extremity: Right Weight Bearing/Tolerated Left Lower Extremity: Left Full Weight Bearing Gait Training Does the Patient Walk?: Yes Walk 10 feet (QC): 4 Walk 50 ft with 2 Turns(QC): 4 Walk 150 ft (QC): 4 Gait Persons Needed: 1 Gait Assistive Device: FWW pt. with heavy wt bearing on FWW, flexed at trunk and noted of concern some festination and difficulty initiating a step as well as very small shuffling steps, right knee flexed with gait and > step length right than left Exercises Supine Ex: Bridging, Ankle pumps, Quad Set, Heel Slides, Scooting, Straight leg raise (CGA only), Hip abd/add Supine Reps: 12 Seated Therapy Exercises: Ankle pumps, Sit to stand, Long arc quads, Hip flexion Seated Reps: 12 Treatments TRFs sit ti stand and sup to sit and sit to sup all min to CGA and instruction. stood for use of urinal, gait 175 ft x 2 FWW CGA, TKR protocol right Assessment Current Status: Good Progress concerning festination with gait , Parkinsons like, pt. very debilitated from post covid fatigue as well as a fear of falling PT Short Term Goals Short Term Goals Time Frame: Jan 27, 2022 Sit to lyin (SBA) Lying to sitting on side of be: 4 (SBA) Sit to stand: 3 (min) Chair/zfq-fl-jmogt transfer: 3 (min) Toilet transfer: 3 (min) Walk 10 feet: 4 Walk 50 feet with two turns: 4 Walk 150 feet: 4 1 step (curb): 3 PT Skilled Nursing Goals Boom Conveyor Operator Goals PT Boom Conveyor Operator Goals Time Frame: Feb 10, 2022 Roll Left & Right (QC): 6 Sit to Lying (QC): 6 Lying-Sitting on Side/Bed(QC): 6 Sit to Stand (QC): 6 Chair/Efq-vr-Hyezv Xfer(QC): 6 Toilet Transfer (QC): 6 Car Transfer (QC): 6 Does the Patient Walk: Yes Walk 10 feet (QC): 6 Walk 50ft with 2 Turns (QC): 6 Walk 150 ft (QC): 6 Walking 10ft on Uneven Surface: 6 1 Step (curb) (QC): 6 4 Steps (QC): 4 12 Steps (QC): 4 Picking up an Object (QC): 6 Does the Pt use WC or Scooter?: No Wheel 50 feet with 2 turns (QC: 09 Type: N/A Wheel 150 feet: 09 Type: N/A PT Plan Treatment/Plan Treatment Plan: Continue Plan of Care Treatment Plan: Concurrent Therapy, Education, Functional Activity Praful, Functional Strength, Group Therapy, Gait, Safety, Therapeutic Exercise, Transfers Treatment Duration: Feb 10, 2022 Frequency: At least 5 of 7 days/Wk (IRF) Estimated Hrs Per Day: 1.5 hours per day Patient and/or Family Agrees t: Yes Safety Risks/Education Patient Education: Gait Training, Transfer Techniques, Correct Positioning, Disease Process, Safety Issues Teaching Recipient: Patient Teaching Methods: Demonstration, Discussion Response to Teaching: Verbalize Understanding, Return Demonstration, Reinforcement Needed Time/GCodes Time In: 900 Time Out: 1000 Total Billed Treatment Time: 60 Total Billed Treatment 1,GT20m,FA25m,EX15m RACHID NARANJO PTA Jan 21, 2022 10:08
--- NOTE | 2022-01-21 10:56 | Occupational Ther Daily Note ---
OT Current Status-Daily Note Subjective Pt alert, sitting in recliner when OT entered. Pt agreed to therapy. No c/o pain reported ADL-Treatment Therapy Code Descriptions/Definitions Functional [place] Measure: 0=Not Assessed/NA 4=Minimal Assistance 1=Total Assistance 5=Supervision or Setup 2=Maximal Assistance 6=Modified [place] 3=Moderate Assistance 7=Complete IndependenceSCALE: Activities may be completed with or without assistive devices. 0-Pwuotpefsk-neeynws completes the activity by him/herself with no assistance from a helper. 5-Set-up or Clean-up Assistance-helper sets up or cleans up; patient completes activity. [place] assists only prior to or following the activity. 4-Supervision or Touching Assistance-helper provides verbal cues and/or touching/steadying and/or contact guard assistance as patient completes activity. Assistance may be provided throughout the activity or intermittently. 3-Partial/Moderate Assistance-helper does LESS THAN HALF the effort. [place] lifts, holds or supports trunk or limbs, but provides less than half the effort. 2-Substantial/Maximal Assistance-helper does MORE THAN HALF the effort. [place] lifts or holds trunk or limbs and provides more than half the effort. 7-Gnarhxsup-djbdkn does ALL the effort. Patient does none of the effort to complete the activity. Or, the assistance of 2 or more helpers is required for the patient to complete the activity. If activity was not attempted, code reason: 7-Patient Refused. 9-Not Applicable-not attempted and the patient did not perform the activity before the current illness, exacerbation or injury. 10-Not Attempted due to Environmental Limitations-(lack of equipment, weather restraints, etc.). 88-Not Attempted due to Medical Conditions or Safety Concerns. Other Treatment Skilled instruction required of BUE green theraband exercises. Pt completed x2 sets of 10 reps of BUE green theraband exercises in all planes while seated in recliner for increase BUE strength for improved independence with ADLs. Pt required physical and verbal demonstration of each exercises for correct technique. Pt tolerated exercises well and only required 1 resting break in between set. After session, pt sitting in recliner. All needs met and call light in reach. Education OT Patient Education: Energy conservation, Exercise program, Home exercise program Teaching Recipient: Patient Teaching Methods: Demonstration, Handout, Discussion Response to Teaching: Verbalize Understanding, Return Demonstration OT Short Term Goals Short Term Goals Time Frame: Jan 29, 2022 Toileting hygiene: 4 Shower/bathe self: 4 Lower body dressin Putting on/taking off footwear: 3 OT Residential Goals Billing Coordinator Goals Time Frame: Feb 12, 2022 Eating (QC): 6 Oral Hygiene (QC): 6 Toileting Hygiene (QC): 6 Shower/Bathe Self (QC): 6 Upper Body Dressing (QC): 6 Lower Body Dressing (QC): 6 On/Off Footwear (QC): 6 Additional Goals: 1-Demonstrate ADL Tasks, 2-Verbalize Understanding, 3- ImproveStrength/Praful 1=Demonstrate adherence to instructed precautions during ADL tasks. 2=Patient will verbalize/demonstrate understanding of assistive devices/modifications for ADL. 3=Patient will improve strength/tolerance for activity to enable patient to perform ADL's. OT Education/Plan Problem List/Assessment Assessment: Decreased Activ Tolerance, Decreased UE Strength, Impaired I ADL's, Impaired Self-Care Skills Discharge Recommendations Plan/Recommendations: Continue POC Treatment Plan/Plan of Care Patient would benefit from OT for education, treatment and training to promote independence in ADL's, mobility, safety and/or upper extremity function for ADL's. Plan of Care: ADL Retraining, Functional Mobility, UE Funct Exercise/Act Treatment Duration: Feb 12, 2022 Frequency: At least 5 of 7 days/Wk (IRF) Estimated Hrs Per Day: 1.5 hours per day Agreement: Yes Rehab Potential: Good Time/GCodes Start Time: 10:30 Stop Time: 11:00 Total Time Billed (hr/min): 30 Billed Treatment Time 1 visit- EX 2 (30 mins) CHACHA VICTORIA Jan 21, 2022 10:56
--- NOTE | 2022-01-21 11:37 | Physical Therapy Daily Note ---
PT Daily Note-Current Subjective Agrees to Rx. Pt. c/o pain at 6/10 right knee Pain Numeric Pain Scale: 6 Location: Right Location Body Site: Knee Pain Description: Ache Mental Status Patient Orientation: Normal For Age Transfers SCALE: Activities may be completed with or without assistive devices. 5-Azbsxwmbdx-ohgaskb completes the activity by him/herself with no assistance from a helper. 5-Set-up or Clean-up Assistance-helper sets up or cleans up; patient completes activity. [place] assists only prior to or following the activity. 4-Supervision or Touching Assistance-helper provides verbal cues and/or touching/steadying and/or contact guard assistance as patient completes activity. Assistance may be provided throughout the activity or intermittently. 3-Partial/Moderate Assistance-helper does LESS THAN HALF the effort. [place] lifts, holds or supports trunk or limbs, but provides less than half the effort. 2-Substantial/Maximal Assistance-helper does MORE THAN HALF the effort. [place] lifts or holds trunk or limbs and provides more than half the effort. 9-Hncsslmiy-otwyfu does ALL the effort. Patient does none of the effort to complete the activity. Or, the assistance of 2 or more helpers is required for the patient to complete the activity. If activity was not attempted, code reason: 7-Patient Refused. 9-Not Applicable-not attempted and the patient did not perform the activity before the current illness, exacerbation or injury. 10-Not Attempted due to Environmental Limitations-(lack of equipment, weather restraints, etc.). 88-Not Attempted due to Medical Conditions or Safety Concerns. Sit to Stand (QC): 4 emphasis on sit to stand and wt shift forwrd with progress noted Weight Bearing Right Lower Extremity: Right Weight Bearing/Tolerated Left Lower Extremity: Left Full Weight Bearing Gait Training Does the Patient Walk?: Yes Gait Assistive Device: FWW 125 ft x 2 slow, cues for bigger steps and flow of gait pattern Exercises Seated Therapy Exercises: Ankle pumps, Sit to stand, Long arc quads, Hip flexion Seated Reps: 12 Treatments in recliner after Rx with call mckeon Assessment Current Status: Good Progress progress noted PT Short Term Goals Short Term Goals Time Frame: Jan 27, 2022 Sit to lyin (SBA) Lying to sitting on side of be: 4 (SBA) Sit to stand: 3 (min) Chair/tuv-fi-xdjms transfer: 3 (min) Toilet transfer: 3 (min) Walk 10 feet: 4 Walk 50 feet with two turns: 4 Walk 150 feet: 4 1 step (curb): 3 PT Filing Machine Operator Goals Filing Machine Operator Goals PT Filing Machine Operator Goals Time Frame: Feb 10, 2022 Roll Left & Right (QC): 6 Sit to Lying (QC): 6 Lying-Sitting on Side/Bed(QC): 6 Sit to Stand (QC): 6 Chair/Vip-yh-Atzia Xfer(QC): 6 Toilet Transfer (QC): 6 Car Transfer (QC): 6 Does the Patient Walk: Yes Walk 10 feet (QC): 6 Walk 50ft with 2 Turns (QC): 6 Walk 150 ft (QC): 6 Walking 10ft on Uneven Surface: 6 1 Step (curb) (QC): 6 4 Steps (QC): 4 12 Steps (QC): 4 Picking up an Object (QC): 6 Does the Pt use WC or Scooter?: No Wheel 50 feet with 2 turns (QC: 09 Type: N/A Wheel 150 feet: 09 Type: N/A PT Plan Treatment/Plan Treatment Plan: Continue Plan of Care Treatment Plan: Concurrent Therapy, Education, Functional Activity Praful, Functional Strength, Group Therapy, Gait, Safety, Therapeutic Exercise, Transfers Treatment Duration: Feb 10, 2022 Frequency: At least 5 of 7 days/Wk (IRF) Estimated Hrs Per Day: 1.5 hours per day Patient and/or Family Agrees t: Yes Safety Risks/Education Patient Education: Gait Training, Transfer Techniques, Correct Positioning Teaching Recipient: Patient Teaching Methods: Demonstration, Discussion Response to Teaching: Verbalize Understanding, Return Demonstration, Reinforcement Needed Time/GCodes Time In: 1100 Time Out: 1130 Total Billed Treatment Time: 30 Total Billed Treatment 1,GT15m,FA15m RACHID NARANJO PTA Jan 21, 2022 11:37
[2022-01-21 19:48] VITALS: BP 120/56
--- NOTE | 2022-01-22 06:22 | PM&R Progress Note ---
Subjective HPI/CC On Admission Date Seen by Provider: Jan 22, 2022 Time Seen by Provider: 10:30 Subjective/Events-last exam 01/22/2022: Patient doing really well Dr. Nino pleased with his progress Increasing stamina from post Covid fatigue Check meds and labs Pain control good Bowel regimen maintain 01/21/2022: Patient doing really well Working with therapy Feels like he is much improved strength claudio Labs reviewed Pain control Bowel regimen maintained Review of Systems General: Fatigue, Malaise Musculoskeletal: leg pain Objective Exam Vital Signs Vital Signs Date Time Temp Pulse Resp B/P (MAP) Pulse Ox O2 Delivery O2 Flow Rate FiO2 01/22/22 21:18 93 Room Air 01/22/22 19:51 36.6 57 18 102/51 (68) Capillary Refill : General Appearance: No Apparent Distress, WD/WN, Chronically ill, Obese HEENT: PERRL/EOMI, Normal ENT Inspection, Pharynx Normal Neck: Full Range of Motion, Normal Inspection, Non Tender, Supple, Carotid Bruit Respiratory: Chest Non Tender, Lungs Clear, Normal Breath Sounds, No Accessory Muscle Use, No Respiratory Distress Cardiovascular: Regular Rate, Rhythm, No Edema, No Gallop, No JVD, No Murmur, Normal Peripheral Pulses Gastrointestinal: Normal Bowel Sounds, No Organomegaly, No Pulsatile Mass, Non Tender, Soft Back: Normal Inspection, No CVA Tenderness, No Vertebral Tenderness Extremity: Normal Capillary Refill, Normal Inspection, Normal Range of Motion (Except right leg), Non Tender, No Calf Tenderness, No Pedal Edema Neurologic/Psychiatric: Alert, Oriented x3, No Motor/Sensory Deficits, Normal Mood/Affect, capacity manager II-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 FIM Transfers Therapy Code Descriptions/Definitions Functional [place] Measure: 0=Not Assessed/NA 4=Minimal Assistance 1=Total Assistance 5=Supervision or Setup 2=Maximal Assistance 6=Modified [place] 3=Moderate Assistance 7=Complete IndependenceSCALE: Activities may be completed with or without assistive devices. 8-Zoqdqncojg-dwhknat completes the activity by him/herself with no assistance from a helper. 5-Set-up or Clean-up Assistance-helper sets up or cleans up; patient completes activity. [place] assists only prior to or following the activity. 4-Supervision or Touching Assistance-helper provides verbal cues and/or t ouching/steadying and/or contact guard assistance as patient completes activity. Assistance may be provided throughout the activity or intermittently. 3-Partial/Moderate Assistance-helper does LESS THAN HALF the effort. [place] lifts, holds or supports trunk or limbs, but provides less than half the effort. 2-Substantial/Maximal Assistance-helper does MORE THAN HALF the effort. [place] lifts or holds trunk or limbs and provides more than half the effort. 1-Bejmfksbn-vvzpof does ALL the effort. Patient does none of the effort to complete the activity. Or, the assistance of 2 or more helpers is required for the patient to complete the activity. If activity was not attempted, code reason: 7-Patient Refused. 9-Not Applicable-not attempted and the patient did not perform the activity before the current illness, exacerbation or injury. 10-Not Attempted due to Environmental Limitations-(lack of equipment, weather restraints, etc.). 88-Not Attempted due to Medical Conditions or Safety Concerns. Roll Left to Right (QC): 6 Sit to Lying (QC): 4 Sit to Stand (QC): 4 Chair/Rwn-yq-Nvtql Xfer(QC): 4 Car Transfer (QC): 3 Gait Training Does the Patient Walk?: Yes Distance: 100' x2 Walk 10 feet (QC): 4 Walk 50 ft with 2 Turns(QC): 4 Walk 150 ft (QC): 4 Walking 10ft/uneven surface-QC: 4 Gait Persons Needed: 1 Gait Assistive Device: FWW Wheelchair Training Does the Pt Use a Wheelchair?: No Wheel 50 ft with 2 turns (QC): 09 Wheel 150 ft (QC): 09 Type of Wheelchair: N/A Stair Training 1 Step (curb) (QC): 88 4 Steps (QC): 88 12 Steps (QC): 88 Balance Picking up an Object (QC): 10 ADL-Treatment Eating (QC): 6 (IND with breakfast per pt report.) Oral Hygiene (QC): 4 (SBA standing at sink.) Shower/Bathe Self (QC): 3 (Min A with feet and buttocks.) Upper Body Dressing (QC): 5 (set up) Lower Body Dressing (QC): 2 On/Off Footwear (QC): 2 (Pt able to doff L gripper sock, assist doffing R. Ass ist donning bilateral.) Toileting Hygiene (QC): 2 Toilet Transfer (QC): 2 Assessment/Plan Assessment and Plan Assess & Plan/Chief Complaint Assessment: Status post uncomplicated right total knee replacement by Dr. Nino on 01/18/2022 SOHA on CPAP Post Covid syndrome fatigue Hypertension Hyperlipidemia BPH Acute blood loss anemia Obesity BMI 42 Plan: Rehab protocol Monitor blood pressure Pain control Constipation management 01/21/2022: Supportive care Rehab protocol CPAP 01/22/2022: Supportive care Monitor closely (1) Status post right knee replacement (2) SOHA on CPAP (3) Obesity (4) BPH (benign prostatic hyperplasia) (5) Hypertension (6) Hyperlipidemia (7) Acute blood loss anemia (8) Post-COVID syndrome (9) Fatigue (10) Osteoarthritis of right knee JOHNNY VARMA DO Jan 22, 2022 06:22
[2022-01-22] MEDS: MULTIVIT W/MINERALS TAB (THERAGRAN M) PO SCH (06:41)
[2022-01-22 07:26] VITALS: BP 139/65
[2022-01-22] MEDS: [UNRECOGNIZED DRUG - REMARK] PO SCH (07:53)
[2022-01-22] MEDS: DOCUSATE SODIUM 100 MG (COLACE) CAP PO SCH ×2 (07:53→21:16)
[2022-01-22] MEDS: ASPIRIN E.C. 81 MG (ECOTRIN) TAB PO SCH ×2 (07:54→18:28)
[2022-01-22] MEDS: SENNA W/DOCUSATE (SENOKOT S) TABLET PO SCH ×2 (07:54→21:16)
[2022-01-22] MEDS: doxAzosin 4 MG (CARDURA) TAB PO SCH (07:54)
[2022-01-22] MEDS: PANTOPRAZOLE 20 MG TABLET (PROTONIX) PO SCH (07:54)
[2022-01-22] MEDS: CELECOXIB 100 MG (CeleBREX) CAP PO SCH ×2 (07:54→21:17)
[2022-01-22] MEDS: ALLOPURINOL 300 MG (ZYLOPRIM) TAB PO SCH (07:54)
[2022-01-22] MEDS: ROSUVASTATIN 10 MG (CRESTOR) TABLET PO SCH (07:54)
[2022-01-22] MEDS: polyethylene glycoL POWDER 17 GM (MIRALAX) PACK PO SCH ×2 (09:00→21:21)
--- NOTE | 2022-01-22 10:05 | Physical Therapy Daily Note ---
PT Daily Note-Current Subjective Pt. indicates again that he is very sedentary at home. Describes his bed and routine. Bed height is very high. States his right knee pain has improved and he had a good nights sleep Pain Location: No Pain Reported Mental Status Patient Orientation: Normal For Age Transfers SCALE: Activities may be completed with or without assistive devices. 2-Iwkzectqdt-nhggqpo completes the activity by him/herself with no assistance from a helper. 5-Set-up or Clean-up Assistance-helper sets up or cleans up; patient completes activity. [place] assists only prior to or following the activity. 4-Supervision or Touching Assistance-helper provides verbal cues and/or touching/steadying and/or contact guard assistance as patient completes activity. Assistance may be provided throughout the activity or intermittently. 3-Partial/Moderate Assistance-helper does LESS THAN HALF the effort. [place] lifts, holds or supports trunk or limbs, but provides less than half the effort. 2-Substantial/Maximal Assistance-helper does MORE THAN HALF the effort. [place] lifts or holds trunk or limbs and provides more than half the effort. 1-Btvxlfajq-gmsdtj does ALL the effort. Patient does none of the effort to complete the activity. Or, the assistance of 2 or more helpers is required for the patient to complete the activity. If activity was not attempted, code reason: 7-Patient Refused. 9-Not Applicable-not attempted and the patient did not perform the activity before the current illness, exacerbation or injury. 10-Not Attempted due to Environmental Limitations-(lack of equipment, weather restraints, etc.). 88-Not Attempted due to Medical Conditions or Safety Concerns. Roll Left & Right (QC): 6 Sit to Lying (QC): 4 Lying to Sitting/Side of Bed(Q: 6 Sit to Stand (QC): 4 Chair/Bzk-en-Jwjga Xfer(QC): 4 pt. this date needed only VCs for sit to stand and stand to sit. very slow, p rotective movement, needs cued for "nose over toes" wt shift. Weight Bearing Right Lower Extremity: Right Weight Bearing/Tolerated Left Lower Extremity: Left Full Weight Bearing Gait Training Does the Patient Walk?: Yes Walk 10 feet (QC): 4 Walk 50 ft with 2 Turns(QC): 4 Walk 150 ft (QC): 4 Gait Persons Needed: 1 Gait Assistive Device: FWW better more equal step length, but still occas festination type steps, but instruction does help . Exercises Supine Ex: Ankle pumps, Quad Set, Rolling, Heel Slides, Short Arc Quads, Scooting, Straight leg raise (indep), Hip abd/add Supine Reps: 15 Seated Therapy Exercises: Ankle pumps, Sit to stand, Long arc quads Seated Reps: 12 Assessment Current Status: Good Progress PT Short Term Goals Short Term Goals Time Frame: Jan 27, 2022 Sit to lyin (SBA) Lying to sitting on side of be: 4 (SBA) Sit to stand: 3 (min) Chair/kud-ah-ljmov transfer: 3 (min) Toilet transfer: 3 (min) Walk 10 feet: 4 Walk 50 feet with two turns: 4 Walk 150 feet: 4 1 step (curb): 3 PT Writer Technical [employer] Goals Custodial Goals PT Custodial Goals Time Frame: Feb 10, 2022 Roll Left & Right (QC): 6 Sit to Lying (QC): 6 Lying-Sitting on Side/Bed(QC): 6 Sit to Stand (QC): 6 Chair/Ooj-sa-Wkfkv Xfer(QC): 6 Toilet Transfer (QC): 6 Car Transfer (QC): 6 Does the Patient Walk: Yes Walk 10 feet (QC): 6 Walk 50ft with 2 Turns (QC): 6 Walk 150 ft (QC): 6 Walking 10ft on Uneven Surface: 6 1 Step (curb) (QC): 6 4 Steps (QC): 4 12 Steps (QC): 4 Picking up an Object (QC): 6 Does the Pt use WC or Scooter?: No Wheel 50 feet with 2 turns (QC: 09 Type: N/A Wheel 150 feet: 09 Type: N/A PT Plan Treatment/Plan Treatment Plan: Continue Plan of Care Treatment Plan: Concurrent Therapy, Education, Functional Activity Praful, Functional Strength, Group Therapy, Gait, Safety, Therapeutic Exercise, Transfers Treatment Duration: Feb 10, 2022 Frequency: At least 5 of 7 days/Wk (IRF) Estimated Hrs Per Day: 1.5 hours per day Patient and/or Family Agrees t: Yes Safety Risks/Education Patient Education: Gait Training, Transfer Techniques, Correct Positioning, Disease Process, Safety Issues Teaching Recipient: Patient Teaching Methods: Demonstration, Discussion Response to Teaching: Verbalize Understanding, Return Demonstration, Reinforcement Needed Time/GCodes Time In: 900 Time Out: 1000 Total Billed Treatment Time: 60 Total Billed Treatment 1,GT15m,FA25m,EX15m RACHID NARANJO RESEARCH MECHANIC Jan 22, 2022 10:05
--- NOTE | 2022-01-22 10:23 | Occupational Ther Daily Note ---
OT Current Status-Daily Note Subjective Pt alert, laying in bed when OT entered. Pt agreed to therapy. No c/o pain reported. Mental Status/Objective Patient Orientation: Person, Place, Time, Situation ADL-Treatment Pt agreed to complete shower. Pt transferred from supine to EOB, increase time d ue to poor bed mobility. Pt sit-stand from raised EOB to FWW with Min A. Pt ambulated from room to bathroom using FWW with CGA. Pt transferred to shower chair with CGA and verbal cues for safe and functional transfer. Pt doffed UB dressing. Pt sit-stand to doff LB dressing. Pt able to hook BLE socks over heal and use other foot to take sock off. Pt completed shower task with supervision. Pt required long handled shower head, shower chair, grab bars, and long handled sponge to complete shower safely. Post shower, pt SPT from shower chair to chair with CGA. After set up, pt donned UB dressing. Pt able to thread LUE through LB dressing, required Min A to thread RLE. Pt sit-stand from chair to FWW to hike LB dressing with CGA. Pt ambulated to sink and complete basic grooming task of brushing and oral hygiene while standing with CGA. Pt transferred to recliner with verbal cues to reach for arm rest and sit down slowly. After session, pt sitting in recliner. All needs met and call light in reach. Therapy Code Descriptions/Definitions Functional [place] Measure: 0=Not Assessed/NA 4=Minimal Assistance 1=Total Assistance 5=Supervision or Setup 2=Maximal Assistance 6=Modified [place] 3=Moderate Assistance 7=Complete IndependenceSCALE: Activities may be completed with or without assistive devices. 7-Kldcixtwdd-gnrrwti completes the activity by him/herself with no assistance from a helper. 5-Set-up or Clean-up Assistance-helper sets up or cleans up; patient completes activity. [place] assists only prior to or following the activity. 4-Supervision or Touching Assistance-helper provides verbal cues and/or touching/steadying and/or contact guard assistance as patient completes activity. Assistance may be provided throughout the activity or intermittently. 3-Partial/Moderate Assistance-helper does LESS THAN HALF the effort. [place] lifts, holds or supports trunk or limbs, but provides less than half the effort. 2-Substantial/Maximal Assistance-helper does MORE THAN HALF the effort. [place] lifts or holds trunk or limbs and provides more than half the effort. 1-Ncyvnikne-gqejhy does ALL the effort. Patient does none of the effort to complete the activity. Or, the assistance of 2 or more helpers is required for the patient to complete the activity. If activity was not attempted, code reason: 7-Patient Refused. 9-Not Applicable-not attempted and the patient did not perform the activity before the current illness, exacerbation or injury. 10-Not Attempted due to Environmental Limitations-(lack of equipment, weather restraints, etc.). 88-Not Attempted due to Medical Conditions or Safety Concerns. Bathing Location: L Arm, R Arm, L Upper Leg, R Upper Leg, L Lower Leg (including foot), R Lower Leg (including foot) (Pt used long handled sponge ), Chest, Abdomen, Buttocks (Pt completed cleansing buttocks while in sitting ), Perineal Area When asked about pt's shower at home, pt reported 1 foot ledge to get in shower and no grab bars. He does have a chair in his shower. Pt stated "the only hard thing in my house will be getting in my shower." Education OT Patient Education: Correct positioning, Energy conservation, Modified ADL techniques, Progress toward Goal/Update tx plan, Transfer techniques, Use of adapted equipment Teaching Recipient: Patient Teaching Methods: Demonstration, Discussion Response to Teaching: Verbalize Understanding, Return Demonstration OT Short Term Goals Short Term Goals Time Frame: Jan 29, 2022 Toileting hygiene: 4 Shower/bathe self: 4 Lower body dressin Putting on/taking off footwear: 3 OT Relief Operator Goals [facility] Goals Time Frame: Feb 12, 2022 Eating (QC): 6 Oral Hygiene (QC): 6 Toileting Hygiene (QC): 6 Shower/Bathe Self (QC): 6 Upper Body Dressing (QC): 6 Lower Body Dressing (QC): 6 On/Off Footwear (QC): 6 Additional Goals: 1-Demonstrate ADL Tasks, 2-Verbalize Understanding, 3- ImproveStrength/Praful 1=Demonstrate adherence to instructed precautions during ADL tasks. 2=Patient will verbalize/demonstrate understanding of assistive devices/modifications for ADL. 3=Patient will improve strength/tolerance for activity to enable patient to perform ADL's. OT Education/Plan Problem List/Assessment Assessment: Decreased Activ Tolerance, Decreased UE Strength, Impaired I ADL's, Impaired Self-Care Skills Discharge Recommendations Plan/Recommendations: Continue POC Treatment Plan/Plan of Care Patient would benefit from OT for education, treatment and training to promote independence in ADL's, mobility, safety and/or upper extremity function for ADL's. Plan of Care: ADL Retraining, Functional Mobility, UE Funct Exercise/Act Treatment Duration: Feb 12, 2022 Frequency: At least 5 of 7 days/Wk (IRF) Estimated Hrs Per Day: 1.5 hours per day Agreement: Yes Rehab Potential: Good Time/GCodes Start Time: 08:00 Stop Time: 09:00 Total Time Billed (hr/min): 60 Billed Treatment Time 1 visit-ADL4 (60 mins) CHACHA VICTORIA Jan 22, 2022 10:23
--- NOTE | 2022-01-22 10:26 | Progress Note - Ortho ---
Progress Note Subjective Date of Exam 01/22/22 Chief Complaint POD #4 R TKA HPI/Events since last exam progressing well with therapy, pain controlled, no specific concerns Review of Systems - Allergies: Coded Allergies: Penicillins (Unverified Allergy, Unknown, 01/14/22) Home Meds Active Scripts Aspirin (Aspirin EC) 81 Mg Tablet.dr, 81 MG PO BID WITH MEALS for 14 Days, #28 TAB 0 Refills Prov:EDIE HERNANDEZ MD 01/20/22 Reported Medications Triamterene/Hydrochlorothiazid (Triamterene-Hctz 37.5-25 mg Tb) 1 Each Tablet, 0.5 EA PO DAILY, TAB 01/18/22 Doxazosin Mesylate (Doxazosin Mesylate) 4 Mg Tablet, 2 MG PO DAILY, TAB TAKES OF A 4MG 01/18/22 Celecoxib (Celebrex) 200 Mg Capsule, 200 MG PO BID, CAP 01/14/22 Allopurinol (Allopurinol) 300 Mg Tablet, 300 MG PO DAILY, TAB 01/14/22 Rosuvastatin Calcium (Rosuvastatin Calcium) 10 Mg Tablet, 10 MG PO DAILY, TAB 01/14/22 Telmisartan (Telmisartan) 80 Mg Tablet, 80 MG PO DAILY, TAB 01/14/22 Aspirin (Aspirin) 81 Mg Tab.chew, 81 MG PO, TAB 01/14/22 Omeprazole Magnesium (Prilosec Otc) 20 Mg Tablet.dr, 20 MG PO DAILY, TAB 01/14/22 Discontinued Reported Medications Doxazosin Mesylate (Doxazosin Mesylate) 2 Mg Tablet, 2 MG PO DAILY, TAB 01/14/22 Objective Exam R Knee: Incision C/D/I, some blisters associated with the ends of the steri- strips, no erythema, no drainage, actively extends knee nearing full extension, +DF of ankle, no s/s of DVT Vital Signs Vital Signs Date Time Temp Pulse Resp B/P (MAP) Pulse Ox O2 Delivery O2 Flow Rate FiO2 01/22/22 07:26 36.4 55 18 139/65 (89) 96 Room Air 01/21/22 20:20 Room Air 01/21/22 19:48 37.2 55 16 120/56 (77) 95 Room Air Assessment and Plan Assessment Right Knee Primary Osteoarthritis s/p Right Total Knee Arthroplasty Problem List Right Knee Primary Osteoarthritis s/p Right Total Knee Arthroplasty Plan Continue therapy efforts DVT Prophylaxis Dressing with Telfa and Netting to knee Final Diagonsis Right Knee Primary Osteoarthritis s/p Right Total Knee Arthroplasty Level of the visit: Level 3 (postop global) EDIE HERNANDEZ MD Jan 22, 2022 10:26
--- NOTE | 2022-01-22 11:30 | Occupational Ther Daily Note ---
OT Current Status-Daily Note Subjective Pt alert, sitting in recliner when OT entered. Pt agreed to therapy. No c/o pain reported. Mental Status/Objective Patient Orientation: Person, Place, Time, Situation ADL-Treatment Therapy Code Descriptions/Definitions Functional [place] Measure: 0=Not Assessed/NA 4=Minimal Assistance 1=Total Assistance 5=Supervision or Setup 2=Maximal Assistance 6=Modified [place] 3=Moderate Assistance 7=Complete IndependenceSCALE: Activities may be completed with or without assistive devices. 2-Osjivhoktb-jlcpwpg completes the activity by him/herself with no assistance from a helper. 5-Set-up or Clean-up Assistance-helper sets up or cleans up; patient completes activity. [place] assists only prior to or following the activity. 4-Supervision or Touching Assistance-helper provides verbal cues and/or touching/steadying and/or contact guard assistance as patient completes activity. Assistance may be provided throughout the activity or intermittently. 3-Partial/Moderate Assistance-helper does LESS THAN HALF the effort. [place] lifts, holds or supports trunk or limbs, but provides less than half the effort. 2-Substantial/Maximal Assistance-helper does MORE THAN HALF the effort. [place] lifts or holds trunk or limbs and provides more than half the effort. 1-Vdrowtwxa-ybyvde does ALL the effort. Patient does none of the effort to complete the activity. Or, the assistance of 2 or more helpers is required for the patient to complete the activity. If activity was not attempted, code reason: 7-Patient Refused. 9-Not Applicable-not attempted and the patient did not perform the activity before the current illness, exacerbation or injury. 10-Not Attempted due to Environmental Limitations-(lack of equipment, weather restraints, etc.). 88-Not Attempted due to Medical Conditions or Safety Concerns. Other Treatment Pt sit-stand from recliner to FWW with CGA. Pt ambulated from room to laundry room using FWW with CGA. Pt retrieved bag of clothing from therapist and placed them into washer for increased independence and safety with IADLs once at home. Pt ambulated back to room using FWW with CGA. Pt transferred to recliner with CGA and verbal cues for reaching for arm rest and sitting down slowly. Skilled instruction required of BUE green theraband exercises. Pt completed x1 set of 10 reps of BUE green theraband exercises in all planes for increased activity tolerance. Pt required physical and verbal demonstration of exercises, pt able to return proper technique. After session, pt sitting in recliner. All needs met and call light in reach. Education OT Patient Education: Correct positioning, Energy conservation, Exercise program, Home exercise program, Transfer techniques Teaching Recipient: Patient Teaching Methods: Demonstration, Discussion Response to Teaching: Verbalize Understanding, Return Demonstration OT Short Term Goals Short Term Goals Time Frame: Jan 29, 2022 Toileting hygiene: 4 Shower/bathe self: 4 Lower body dressin Putting on/taking off footwear: 3 OT Film Numberer Goals Film Numberer Goals Time Frame: Feb 12, 2022 Eating (QC): 6 Oral Hygiene (QC): 6 Toileting Hygiene (QC): 6 Shower/Bathe Self (QC): 6 Upper Body Dressing (QC): 6 Lower Body Dressing (QC): 6 On/Off Footwear (QC): 6 Additional Goals: 1-Demonstrate ADL Tasks, 2-Verbalize Understanding, 3- ImproveStrength/Praful 1=Demonstrate adherence to instructed precautions during ADL tasks. 2=Patient will verbalize/demonstrate understanding of assistive devices/modifications for ADL. 3=Patient will improve strength/tolerance for activity to enable patient to perform ADL's. OT Education/Plan Problem List/Assessment Assessment: Decreased Activ Tolerance, Decreased UE Strength, Impaired I ADL's, Impaired Self-Care Skills Discharge Recommendations Plan/Recommendations: Continue POC Treatment Plan/Plan of Care Patient would benefit from OT for education, treatment and training to promote independence in ADL's, mobility, safety and/or upper extremity function for ADL's. Plan of Care: ADL Retraining, Functional Mobility, UE Funct Exercise/Act Treatment Duration: Feb 12, 2022 Frequency: At least 5 of 7 days/Wk (IRF) Estimated Hrs Per Day: 1.5 hours per day Agreement: Yes Rehab Potential: Good Time/GCodes Start Time: 10:30 Stop Time: 11:00 Total Time Billed (hr/min): 30 Billed Treatment Time 1 visit- FA 1 (17 mins) EX 1 (13 mins) CHACHA VICTORIA Jan 22, 2022 11:30
--- NOTE | 2022-01-22 11:57 | Physical Therapy Daily Note ---
PT Daily Note-Current Subjective "yes , lets go" Positive about his progress Pain Location: No Pain Reported Mental Status Patient Orientation: Normal For Age Transfers SCALE: Activities may be completed with or without assistive devices. 2-Odzsjelgwy-ezyqmsh completes the activity by him/herself with no assistance from a helper. 5-Set-up or Clean-up Assistance-helper sets up or cleans up; patient completes activity. [place] assists only prior to or following the activity. 4-Supervision or Touching Assistance-helper provides verbal cues and/or touching/steadying and/or contact guard assistance as patient completes activity. Assistance may be provided throughout the activity or intermittently. 3-Partial/Moderate Assistance-helper does LESS THAN HALF the effort. [place] lifts, holds or supports trunk or limbs, but provides less than half the effort. 2-Substantial/Maximal Assistance-helper does MORE THAN HALF the effort. [place] lifts or holds trunk or limbs and provides more than half the effort. 1-Psvklotsx-etfymr does ALL the effort. Patient does none of the effort to complete the activity. Or, the assistance of 2 or more helpers is required for the patient to complete the activity. If activity was not attempted, code reason: 7-Patient Refused. 9-Not Applicable-not attempted and the patient did not perform the activity before the current illness, exacerbation or injury. 10-Not Attempted due to Environmental Limitations-(lack of equipment, weather restraints, etc.). 88-Not Attempted due to Medical Conditions or Safety Concerns. SBA sit to stands and stand to sits x 6. slow but indep Weight Bearing Right Lower Extremity: Right Weight Bearing/Tolerated Left Lower Extremity: Left Full Weight Bearing Gait Training Does the Patient Walk?: Yes Walk 150 ft (QC): 4 Gait Assistive Device: FWW [id number] FWW SBA to CGA, many cues for step length and gait pattern Exercises Seated Therapy Exercises: Ankle pumps, Sit to stand, Long arc quads, Hamstring Curls Seated Reps: 12 Treatments seated knee flexion approx 92 deg Assessment Current Status: Good Progress PT Short Term Goals Short Term Goals Time Frame: Jan 27, 2022 Sit to lyin (SBA) Lying to sitting on side of be: 4 (SBA) Sit to stand: 3 (min) Chair/ika-mv-azjrm transfer: 3 (min) Toilet transfer: 3 (min) Walk 10 feet: 4 Walk 50 feet with two turns: 4 Walk 150 feet: 4 1 step (curb): 3 PT Physician Chief Of Pathology Goals [facility] Goals PT Physician Chief Of Pathology Goals Time Frame: Feb 10, 2022 Roll Left & Right (QC): 6 Sit to Lying (QC): 6 Lying-Sitting on Side/Bed(QC): 6 Sit to Stand (QC): 6 Chair/Ytu-ab-Pnsps Xfer(QC): 6 Toilet Transfer (QC): 6 Car Transfer (QC): 6 Does the Patient Walk: Yes Walk 10 feet (QC): 6 Walk 50ft with 2 Turns (QC): 6 Walk 150 ft (QC): 6 Walking 10ft on Uneven Surface: 6 1 Step (curb) (QC): 6 4 Steps (QC): 4 12 Steps (QC): 4 Picking up an Object (QC): 6 Does the Pt use WC or Scooter?: No Wheel 50 feet with 2 turns (QC: 09 Type: N/A Wheel 150 feet: 09 Type: N/A PT Plan Treatment/Plan Treatment Plan: Continue Plan of Care Treatment Plan: Concurrent Therapy, Education, Functional Activity Praful, Functional Strength, Group Therapy, Gait, Safety, Therapeutic Exercise, Transfers Treatment Duration: Feb 10, 2022 Frequency: At least 5 of 7 days/Wk (IRF) Estimated Hrs Per Day: 1.5 hours per day Patient and/or Family Agrees t: Yes Safety Risks/Education Patient Education: Gait Training, Transfer Techniques, Correct Positioning, Safety Issues Response to Teaching: Reinforcement Needed Time/GCodes Time In: 1100 Time Out: 1130 Total Billed Treatment Time: 30 Total Billed Treatment 1,GT15m,EX15m RACHID NARANJO PTA Jan 22, 2022 11:57
[2022-01-22] MEDS: TRIAMT/HCTZ 37.5-25 MG TAB PO SCH (15:19)
[2022-01-22 19:51] VITALS: BP 102/51
--- NOTE | 2022-01-23 06:01 | PM&R Progress Note ---
Subjective HPI/CC On Admission Date Seen by Provider: Jan 23, 2022 Time Seen by Provider: 11:45 Subjective/Events-last exam 01/23/2022: Patient doing very well Increasing stamina Pain well controlled Bowel regimen maintained 01/22/2022: Patient doing really well Dr. Nino pleased with his progress Increasing stamina from post Covid fatigue Check meds and labs Pain control good Bowel regimen maintain 01/21/2022: Patient doing really well Working with therapy Feels like he is much improved strength claudio Labs reviewed Pain control Bowel regimen maintained Review of Systems General: Fatigue, Malaise Musculoskeletal: leg pain Objective Exam Vital Signs Vital Signs Date Time Temp Pulse Resp B/P (MAP) Pulse Ox O2 Delivery O2 Flow Rate FiO2 01/23/22 21:18 94 Room Air 01/23/22 20:00 36.9 60 20 112/71 (85) Capillary Refill : General Appearance: No Apparent Distress, WD/WN, Chronically ill, Obese HEENT: PERRL/EOMI, Normal ENT Inspection, Pharynx Normal Neck: Full Range of Motion, Normal Inspection, Non Tender, Supple, Carotid Bruit Respiratory: Chest Non Tender, Lungs Clear, Normal Breath Sounds, No Accessory Muscle Use, No Respiratory Distress Cardiovascular: Regular Rate, Rhythm, No Edema, No Gallop, No JVD, No Murmur, Normal Peripheral Pulses Gastrointestinal: Normal Bowel Sounds, No Organomegaly, No Pulsatile Mass, Non Tender, Soft Back: Normal Inspection, No CVA Tenderness, No Vertebral Tenderness Extremity: Normal Capillary Refill, Normal Inspection, Normal Range of Motion (Except right leg), Non Tender, No Calf Tenderness, No Pedal Edema Neurologic/Psychiatric: Alert, Oriented x3, No Motor/Sensory Deficits, Normal Mood/Affect, inspector technician II-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 [facility]IM Transfers Therapy Code Descriptions/Definitions Functional [place] Measure: 0=Not Assessed/NA 4=Minimal Assistance 1=Total Assistance 5=Supervision or Setup 2=Maximal Assistance 6=Modified [place] 3=Moderate Assistance 7=Complete IndependenceSCALE: Activities may be completed with or without assistive devices. 4-Uayawrcxjh-psfmkru completes the activity by him/herself with no assistance from a helper. 5-Set-up or Clean-up Assistance-helper sets up or cleans up; patient completes activity. [place] assists only prior to or following the activity. 4-Supervision or Touching Assistance-helper provides verbal cues and/or touching/steadying and/or contact guard assistance as patient completes activity. Assistance may be provided throughout the activity or intermittently. 3-Partial/Moderate Assistance-helper does LESS THAN HALF the effort. [place] lifts, holds or supports trunk or limbs, but provides less than half the effort. 2-Substantial/Maximal Assistance-helper does MORE THAN HALF the effort. [place] lifts or holds trunk or limbs and provides more than half the effort. 8-Kkatbgpoy-izcqxi does ALL the effort. Patient does none of the effort to complete the activity. Or, the assistance of 2 or more helpers is required for the patient to complete the activity. If activity was not attempted, code reason: 7-Patient Refused. 9-Not Applicable-not attempted and the patient did not perform the activity before the current illness, exacerbation or injury. 10-Not Attempted due to Environmental Limitations-(lack of equipment, weather restraints, etc.). 88-Not Attempted due to Medical Conditions or Safety Concerns. Roll Left to Right (QC): 6 Sit to Lying (QC): 4 Sit to Stand (QC): 4 Chair/Khi-lr-Oanwh Xfer(QC): 4 Car Transfer (QC): 3 Gait Training Does the Patient Walk?: Yes Distance: 100' x2 Walk 10 feet (QC): 4 Walk 50 ft with 2 Turns(QC): 4 Walk 150 ft (QC): 4 Walking 10ft/uneven surface-QC: 4 Gait Persons Needed: 1 Gait Assistive Device: FWW Wheelchair Training Does the Pt Use a Wheelchair?: No Wheel 50 ft with 2 turns (QC): 09 Wheel 150 ft (QC): 09 Type of Wheelchair: N/A Stair Training 1 Step (curb) (QC): 88 4 Steps (QC): 88 12 Steps (QC): 88 Balance Picking up an Object (QC): 10 ADL-Treatment Eating (QC): 6 (IND with breakfast per pt report.) Oral Hygiene (QC): 4 (SBA standing at sink.) Bathing Location: L Arm, R Arm, L Upper Leg, R Upper Leg, L Lower Leg (including foot), R Lower Leg (including foot) (Pt used long handled sponge ), Chest, Abdomen, Buttocks (Pt completed cleansing buttocks while in sitting ), Perineal Area Shower/Bathe Self (QC): 3 (Min A with feet and buttocks.) Upper Body Dressing (QC): 5 (set up) Lower Body Dressing (QC): 2 On/Off Footwear (QC): 2 (Pt able to doff L gripper sock, assist doffing R. Assist donning bilateral.) Toileting Hygiene (QC): 2 Toilet Transfer (QC): 2 Assessment/Plan Assessment and Plan Assess & Plan/Chief Complaint Assessment: Status post uncomplicated right total knee replacement by Dr. Nino on 01/18/2022 SOHA on CPAP Post Covid syndrome fatigue Hypertension Hyperlipidemia BPH Acute blood loss anemia Obesity BMI 42 Plan: Rehab protocol Monitor blood pressure Pain control Constipation management 01/21/2022: Supportive care Rehab protocol CPAP 01/22/2022: Supportive care Monitor closely 01/23/2022: Supportive care Increase stamina (1) Status post right knee replacement (2) SOHA on CPAP (3) Obesity (4) BPH (benign prostatic hyperplasia) (5) Hypertension (6) Hyperlipidemia (7) Acute blood loss anemia (8) Post-COVID syndrome (9) Fatigue (10) Osteoarthritis of right knee JOHNNY VARMA DO Jan 23, 2022 06:01
[2022-01-23] MEDS: MULTIVIT W/MINERALS TAB (THERAGRAN M) PO SCH (06:50)
[2022-01-23 07:18] VITALS: BP 109/46
[2022-01-23] MEDS: polyethylene glycoL POWDER 17 GM (MIRALAX) PACK PO SCH ×2 (07:31→21:21)
[2022-01-23] MEDS: ROSUVASTATIN 10 MG (CRESTOR) TABLET PO SCH (09:03)
[2022-01-23] MEDS: doxAzosin 4 MG (CARDURA) TAB PO SCH (09:03)
[2022-01-23] MEDS: ASPIRIN E.C. 81 MG (ECOTRIN) TAB PO SCH ×2 (09:03→17:55)
[2022-01-23] MEDS: CELECOXIB 100 MG (CeleBREX) CAP PO SCH ×2 (09:03→21:16)
[2022-01-23] MEDS: PANTOPRAZOLE 20 MG TABLET (PROTONIX) PO SCH (09:03)
[2022-01-23] MEDS: ALLOPURINOL 300 MG (ZYLOPRIM) TAB PO SCH (09:03)
[2022-01-23] MEDS: TRIAMT/HCTZ 37.5-25 MG TAB PO SCH (09:05)
[2022-01-23] MEDS: [UNRECOGNIZED DRUG - REMARK] PO SCH (09:06)
[2022-01-23] MEDS: SENNA W/DOCUSATE (SENOKOT S) TABLET PO SCH ×2 (09:07→21:17)
[2022-01-23] MEDS: DOCUSATE SODIUM 100 MG (COLACE) CAP PO SCH ×2 (09:07→21:21)
--- NOTE | 2022-01-23 09:23 | Physical Therapy Daily Note ---
PT Daily Note-Current Subjective Pt sitting up in bed upon arrival. Pt takes encouragement to start tx this morning. Mental Status Patient Orientation: Person, Place, Time, Situation Transfers SCALE: Activities may be completed with or without assistive devices. 5-Bykinjhbpy-pfkknng completes the activity by him/herself with no assistance from a helper. 5-Set-up or Clean-up Assistance-helper sets up or cleans up; patient completes activity. [place] assists only prior to or following the activity. 4-Supervision or Touching Assistance-helper provides verbal cues and/or touching/steadying and/or contact guard assistance as patient completes activity. Assistance may be provided throughout the activity or intermittently. 3-Partial/Moderate Assistance-helper does LESS THAN HALF the effort. [place] lifts, holds or supports trunk or limbs, but provides less than half the effort. 2-Substantial/Maximal Assistance-helper does MORE THAN HALF the effort. [place] lifts or holds trunk or limbs and provides more than half the effort. 2-Knfudfrrv-gzclrm does ALL the effort. Patient does none of the effort to complete the activity. Or, the assistance of 2 or more helpers is required for the patient to complete the activity. If activity was not attempted, code reason: 7-Patient Refused. 9-Not Applicable-not attempted and the patient did not perform the activity before the current illness, exacerbation or injury. 10-Not Attempted due to Environmental Limitations-(lack of equipment, weather restraints, etc.). 88-Not Attempted due to Medical Conditions or Safety Concerns. Lying to Sitting/Side of Bed(Q: 4 Sit to Stand (QC): 4 Weight Bearing Right Lower Extremity: Right Weight Bearing/Tolerated Left Lower Extremity: Left Full Weight Bearing Gait Training Does the Patient Walk?: Yes Distance: 150' x2 Walk 10 feet (QC): 4 Walk 50 ft with 2 Turns(QC): 4 Walk 150 ft (QC): 4 Gait Persons Needed: 1 Gait Assistive Device: FWW Pt has improved since last tx this therapist saw pt. Pt will WB to create more normalized gait pattern. Pt is working on increasing step length elma. when tired. Wheelchair Training Does the Pt Use a Wheelchair?: No Treatments Pt TF to EOB and stands to use urinal and don shorts. Pt amb. in hallway with a few short standing RB. Pt rests in recliner at end of tx with all needs met, call light in hand. Assessment Current Status: Good Progress Pt needs VC to stay on task at times but has improved with transfers and amb. PT Short Term Goals Short Term Goals Time Frame: Jan 27, 2022 Sit to lyin (SBA) Lying to sitting on side of be: 4 (SBA) Sit to stand: 3 (min) Chair/icn-yu-tgxtg transfer: 3 (min) Toilet transfer: 3 (min) Walk 10 feet: 4 Walk 50 feet with two turns: 4 Walk 150 feet: 4 1 step (curb): 3 PT [facility] Goals [facility] Goals PT [facility] Expert Goals Time Frame: Feb 10, 2022 Roll Left & Right (QC): 6 Sit to Lying (QC): 6 Lying-Sitting on Side/Bed(QC): 6 Sit to Stand (QC): 6 Chair/Sll-vo-Vkpdq Xfer(QC): 6 Toilet Transfer (QC): 6 Car Transfer (QC): 6 Does the Patient Walk: Yes Walk 10 feet (QC): 6 Walk 50ft with 2 Turns (QC): 6 Walk 150 ft (QC): 6 Walking 10ft on Uneven Surface: 6 1 Step (curb) (QC): 6 4 Steps (QC): 4 12 Steps (QC): 4 Picking up an Object (QC): 6 Does the Pt use WC or Scooter?: No Wheel 50 feet with 2 turns (QC: 09 Type: N/A Wheel 150 feet: 09 Type: N/A PT Plan Problem List Problem List: Activity Tolerance, Gait Treatment/Plan Treatment Plan: Continue Plan of Care Treatment Plan: Concurrent Therapy, Education, Functional Activity Praful, Functional Strength, Group Therapy, Gait, Safety, Therapeutic Exercise, Transfers Treatment Duration: Feb 10, 2022 Frequency: At least 5 of 7 days/Wk (IRF) Estimated Hrs Per Day: 1.5 hours per day Patient and/or Family Agrees t: Yes Safety Risks/Education Patient Education: Gait Training, Transfer Techniques, Correct Positioning, Safety Issues Teaching Recipient: Patient Teaching Methods: Discussion Response to Teaching: Verbalize Understanding Time/GCodes Time In: 835 Time Out: 915 Total Billed Treatment Time: 40 Total Billed Treatment 1, GT x2 (25m) & FA (15m) DANNY BURT RESIDENTIAL ELECTRICIAN Jan 23, 2022 09:22
[2022-01-23 20:00] VITALS: BP 112/71
[2022-01-24] MEDS: MULTIVIT W/MINERALS TAB (THERAGRAN M) PO SCH (06:15)
[2022-01-24 07:20] VITALS: BP 113/53
--- NOTE | 2022-01-24 07:34 | PM&R Progress Note ---
Subjective HPI/CC On Admission Date Seen by Provider: Jan 24, 2022 Time Seen by Provider: 12:15 Subjective/Events-last exam 01/24/2022: Patient doing really well No pain is reported Increasing stamina Bowel regimen maintained 01/23/2022: Patient doing very well Increasing stamina Pain well controlled Bowel regimen maintained 01/22/2022: Patient doing really well Dr. Nino pleased with his progress Increasing stamina from post Covid fatigue Check meds and labs Pain control good Bowel regimen maintain 01/21/2022: Patient doing really well Working with therapy Feels like he is much improved strength claudio Labs reviewed Pain control Bowel regimen maintained Review of Systems General: Fatigue, Malaise Objective Exam Vital Signs Vital Signs Date Time Temp Pulse Resp B/P (MAP) Pulse Ox O2 Delivery O2 Flow Rate FiO2 01/24/22 09:00 Room Air 01/24/22 07:20 36.7 58 18 113/53 (73) 94 Capillary Refill : General Appearance: No Apparent Distress, WD/WN, Chronically ill, Obese HEENT: PERRL/EOMI, Normal ENT Inspection, Pharynx Normal Neck: Full Range of Motion, Normal Inspection, Non Tender, Supple, Carotid Bruit Respiratory: Chest Non Tender, Lungs Clear, Normal Breath Sounds, No Accessory Muscle Use, No Respiratory Distress Cardiovascular: Regular Rate, Rhythm, No Edema, No Gallop, No JVD, No Murmur, Normal Peripheral Pulses Gastrointestinal: Normal Bowel Sounds, No Organomegaly, No Pulsatile Mass, Non Tender, Soft Back: Normal Inspection, No CVA Tenderness, No Vertebral Tenderness Extremity: Normal Capillary Refill, Normal Inspection, Normal Range of Motion (Except right leg), Non Tender, No Calf Tenderness, No Pedal Edema Neurologic/Psychiatric: Alert, Oriented x3, No Motor/Sensory Deficits, Normal 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 FIM Transfers Therapy Code Descriptions/Definitions Functional [place] Measure: 0=Not Assessed/NA 4=Minimal Assistance 1=Total Assistance 5=Supervision or Setup 2=Maximal Assistance 6=Modified [place] 3=Moderate Assistance 7=Complete IndependenceSCALE: Activities may be completed with or without assistive devices. 6-Hjsukdkoff-itdjnhe completes the activity by him/herself with no assistance from a helper. 5-Set-up or Clean-up Assistance-helper sets up or cleans up; patient completes activity. [place] assists only prior to or following the activity. 4-Supervision or Touching Assistance-helper provides verbal cues and/or touching/steadying and/or contact guard assistance as patient completes activity. Assistance may be provided throughout the activity or intermittently. 3-Partial/Moderate Assistance-helper does LESS THAN HALF the effort. [place] lifts, holds or supports trunk or limbs, but provides less than half the effort. 2-Substantial/Maximal Assistance-helper does MORE THAN HALF the effort. [place] lifts or holds trunk or limbs and provides more than half the effort. 3-[place]-bgkpoz does ALL the effort. Patient does none of the effort to complete the activity. Or, the assistance of 2 or more helpers is required for the patient to complete the activity. If activity was not attempted, code reason: 7-Patient Refused. 9-Not Applicable-not attempted and the patient did not perform the activity before the current illness, exacerbation or injury. 10-Not Attempted due to Environmental Limitations-(lack of equipment, weather restraints, etc.). 88-Not Attempted due to Medical Conditions or Safety Concerns. Roll Left to Right (QC): 6 Sit to Lying (QC): 4 Sit to Stand (QC): 4 Chair/Vlx-fq-Qzpta Xfer(QC): 4 Car Transfer (QC): 3 Gait Training Does the Patient Walk?: Yes Distance: 150' x2 Walk 10 feet (QC): 4 Walk 50 ft with 2 Turns(QC): 4 Walk 150 ft (QC): 4 Walking 10ft/uneven surface-QC: 4 Gait Persons Needed: 1 Gait Assistive Device: FWW Wheelchair Training Does the Pt Use a Wheelchair?: No Wheel 50 ft with 2 turns (QC): 09 Wheel 150 ft (QC): 09 Type of Wheelchair: N/A Stair Training 1 Step (curb) (QC): 88 4 Steps (QC): 88 12 Steps (QC): 88 Balance Picking up an Object (QC): 10 ADL-Treatment Eating (QC): 6 (IND with breakfast per pt report.) Oral Hygiene (QC): 4 (SBA standing at sink.) Bathing Location: L Arm, R Arm, L Upper Leg, R Upper Leg, L Lower Leg (including foot), R Lower Leg (including foot) (Pt used long handled sponge ), Chest, Abdomen, Buttocks (Pt completed cleansing buttocks while in sitting ), Perineal Area Shower/Bathe Self (QC): 3 (Min A with feet and buttocks.) Upper Body Dressing (QC): 5 (set up) Lower Body Dressing (QC): 2 On/Off Footwear (QC): 2 (Pt able to doff L gripper sock, assist doffing R. Assist donning bilateral.) Toileting Hygiene (QC): 2 Toilet Transfer (QC): 2 Assessment/Plan Assessment and Plan Assess & Plan/Chief Complaint Assessment: Status post uncomplicated right total knee replacement by Dr. Nino on 01/18/2022 SOHA on CPAP Post Covid syndrome fatigue Hypertension Hyperlipidemia BPH Acute blood loss anemia Obesity BMI 42 Plan: Rehab protocol Monitor blood pressure Pain control Constipation management 01/21/2022: Supportive care Rehab protocol CPAP 01/22/2022: Supportive care Monitor closely 01/23/2022: Supportive care Increase stamina 01/24/2022: Supportive care Increase stamina (1) Status post right knee replacement (2) SOHA on CPAP (3) Obesity (4) BPH (benign prostatic hyperplasia) (5) Hypertension (6) Hyperlipidemia (7) Acute blood loss anemia (8) Post-COVID syndrome (9) Fatigue (10) Osteoarthritis of right knee JOHNNY VARMA DO Jan 24, 2022 07:33
[2022-01-24] MEDS: ASPIRIN E.C. 81 MG (ECOTRIN) TAB PO SCH ×2 (07:58→17:31)
[2022-01-24] MEDS: ROSUVASTATIN 10 MG (CRESTOR) TABLET PO SCH (07:58)
[2022-01-24] MEDS: doxAzosin 4 MG (CARDURA) TAB PO SCH (07:58)
[2022-01-24] MEDS: SENNA W/DOCUSATE (SENOKOT S) TABLET PO SCH ×2 (07:58→20:32)
[2022-01-24] MEDS: DOCUSATE SODIUM 100 MG (COLACE) CAP PO SCH ×2 (07:58→20:31)
[2022-01-24] MEDS: ALLOPURINOL 300 MG (ZYLOPRIM) TAB PO SCH (07:58)
[2022-01-24] MEDS: CELECOXIB 100 MG (CeleBREX) CAP PO SCH ×2 (07:58→20:29)
[2022-01-24] MEDS: PANTOPRAZOLE 20 MG TABLET (PROTONIX) PO SCH (08:00)
[2022-01-24] MEDS: polyethylene glycoL POWDER 17 GM (MIRALAX) PACK PO SCH ×2 (08:00→20:31)
[2022-01-24] MEDS: [UNRECOGNIZED DRUG - REMARK] PO SCH (08:07)
[2022-01-24] MEDS: TRIAMT/HCTZ 37.5-25 MG TAB PO SCH (08:07)
[2022-01-24 19:36] VITALS: BP 115/69
--- NOTE | 2022-01-25 05:37 | PM&R Progress Note ---
Subjective HPI/CC On Admission Date Seen by Provider: Jan 25, 2022 Time Seen by Provider: 10:30 Subjective/Events-last exam 01/25/2022: Pt doing pretty well Pain medication taken Dr. Nino called to check on him 01/24/2022: Patient doing really well No pain is reported Increasing stamina Bowel regimen maintained 01/23/2022: Patient doing very well Increasing stamina Pain well controlled Bowel regimen maintained 01/22/2022: Patient doing really well Dr. Nino pleased with his progress Increasing stamina from post Covid fatigue Check meds and labs Pain control good Bowel regimen maintain 01/21/2022: Patient doing really well Working with therapy Feels like he is much improved strength claudio Labs reviewed Pain control Bowel regimen maintained Review of Systems General: Fatigue, Malaise Musculoskeletal: leg pain Objective Exam Vital Signs Vital Signs Date Time Temp Pulse Resp B/P (MAP) Pulse Ox O2 Delivery O2 Flow Rate FiO2 01/25/22 20:20 Room Air 01/25/22 19:27 36.6 52 16 103/53 (70) 92 Capillary Refill : General Appearance: No Apparent Distress, WD/WN, Chronically ill, Obese HEENT: PERRL/EOMI, Normal ENT Inspection, Pharynx Normal Neck: Full Range of Motion, Normal Inspection, Non Tender, Supple, Carotid Bruit Respiratory: Chest Non Tender, Lungs Clear, Normal Breath Sounds, No Accessory Muscle Use, No Respiratory Distress Cardiovascular: Regular Rate, Rhythm, No Edema, No Gallop, No JVD, No Murmur, Normal Peripheral Pulses Gastrointestinal: Normal Bowel Sounds, No Organomegaly, No Pulsatile Mass, Non Tender, Soft Back: Normal Inspection, No CVA Tenderness, No Vertebral Tenderness Extremity: Normal Capillary Refill, Normal Inspection, Normal Range of Motion (Except right leg), Non Tender, No Calf Tenderness, No Pedal Edema Neurologic/Psychiatric: Alert, Oriented x3, No Motor/Sensory Deficits, Normal 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 FIM Transfers Therapy Code Descriptions/Definitions Functional [place] Measure: 0=Not Assessed/NA 4=Minimal Assistance 1=Total Assistance 5=Supervision or Setup 2=Maximal Assistance 6=Modified [place] 3=Moderate Assistance 7=Complete IndependenceSCALE: Activities may be completed with or without assistive devices. 8-Wwqirnzjlx-yflkccl completes the activity by him/herself with no assistance from a helper. 5-Set-up or Clean-up Assistance-helper sets up or cleans up; patient completes activity. [place] assists only prior to or following the activity. 4-Supervision or Touching Assistance-helper provides verbal cues and/or touching/steadying and/or contact guard assistance as patient completes activity. Assistance may be provided throughout the activity or intermittently. 3-Partial/Moderate Assistance-helper does LESS THAN HALF the effort. [place] lifts, holds or supports trunk or limbs, but provides less than half the effort. 2-Substantial/Maximal Assistance-helper does MORE THAN HALF the effort. [place] lifts or holds trunk or limbs and provides more than half the effort. 3-Yolwlyyiq-kxoycs does ALL the effort. Patient does none of the effort to complete the activity. Or, the assistance of 2 or more helpers is required for the patient to complete the activity. If activity was not attempted, code reason: 7-Patient Refused. 9-Not Applicable-not attempted and the patient did not perform the activity before the current illness, exacerbation or injury. 10-Not Attempted due to Environmental Limitations-(lack of equipment, weather re straints, etc.). 88-Not Attempted due to Medical Conditions or Safety Concerns. Roll Left to Right (QC): 6 Sit to Lying (QC): 4 Sit to Stand (QC): 4 Chair/Hpm-nt-Pqhed Xfer(QC): 4 Car Transfer (QC): 3 Gait Training Does the Patient Walk?: Yes Distance: 150' x2 Walk 10 feet (QC): 4 Walk 50 ft with 2 Turns(QC): 4 Walk 150 ft (QC): 4 Walking 10ft/uneven surface-QC: 4 Gait Persons Needed: 1 Gait Assistive Device: FWW Wheelchair Training Does the Pt Use a Wheelchair?: No Wheel 50 ft with 2 turns (QC): 09 Wheel 150 ft (QC): 09 Type of Wheelchair: N/A Stair Training 1 Step (curb) (QC): 88 4 Steps (QC): 88 12 Steps (QC): 88 Balance Picking up an Object (QC): 10 ADL-Treatment Eating (QC): 6 (IND with breakfast per pt report.) Oral Hygiene (QC): 4 (SBA standing at sink.) Bathing Location: L Arm, R Arm, L Upper Leg, R Upper Leg, L Lower Leg (including foot), R Lower Leg (including foot) (Pt used long handled sponge ), Chest, Abdomen, Buttocks (Pt completed cleansing buttocks while in sitting ), Perineal Area Shower/Bathe Self (QC): 3 (Min A with feet and buttocks.) Upper Body Dressing (QC): 5 (set up) Lower Body Dressing (QC): 2 On/Off Footwear (QC): 2 (Pt able to doff L gripper sock, assist doffing R. Assist donning bilateral.) Toileting Hygiene (QC): 2 Toilet Transfer (QC): 2 Assessment/Plan Assessment and Plan Assess & Plan/Chief Complaint Assessment: Status post uncomplicated right total knee replacement by Dr. Nino on 01/18/2022 SOHA on CPAP Post Covid syndrome fatigue Hypertension Hyperlipidemia BPH Acute blood loss anemia Obesity BMI 42 Plan: Rehab protocol Monitor blood pressure Pain control Constipation management 01/21/2022: Supportive care Rehab protocol CPAP 01/22/2022: Supportive care Monitor closely 01/23/2022: Supportive care Increase stamina 01/24/2022: Supportive care Increase stamina 01/25/2022: Supportive care (1) Status post right knee replacement (2) SOHA on CPAP (3) Obesity (4) BPH (benign prostatic hyperplasia) (5) Hypertension (6) Hyperlipidemia (7) Acute blood loss anemia (8) Post-COVID syndrome (9) Fatigue (10) Osteoarthritis of right knee JOHNNY VARMA DO Jan 25, 2022 05:37
[2022-01-25 06:38] LABS: BASOPHILS % (AUTO) 1 % (0-10); EOSINOPHILS # (AUTO) 0.6 10^3/uL (0.0-0.3); EOSINOPHILS % (AUTO) 10 % (0-10); HEMATOCRIT 31 % (40-54); HEMOGLOBIN 10.4 g/dL (13.3-17.7); LYMPHOCYTES # (AUTO) 1.4 10^3/uL (1.0-4.0); LYMPHOCYTES % (AUTO) 21 % (12-44); MEAN CORPUSCULAR HEMOGLOBIN 33 pg (25-34); MEAN CORPUSCULAR HGB CONC 34 g/dL (32-36); MEAN CORPUSCULAR VOLUME 97 fL (80-99); MEAN PLATELET VOLUME 11.4 fL (9.0-12.2); MONOCYTES # (AUTO) 1.1 10^3/uL (0.0-1.0); MONOCYTES % (AUTO) 16 % (0-12); NEUTROPHILS # (AUTO) 3.4 10^3/uL (1.8-7.8); NEUTROPHILS % (AUTO) 52 % (42-75); PLATELET COUNT 132 10^3/uL (130-400); WHITE BLOOD COUNT 6.5 10^3/uL (4.3-11.0)
[2022-01-25] MEDS: MULTIVIT W/MINERALS TAB (THERAGRAN M) PO SCH (06:44)
[2022-01-25 06:53] LABS: ALBUMIN 3.2 GM/DL (3.2-4.5); POTASSIUM 4.2 MMOL/L (3.6-5.0)
[2022-01-25 06:54] LABS: CALCIUM 9.1 MG/DL (8.5-10.1)
[2022-01-25 06:55] LABS: TOTAL PROTEIN 6.2 GM/DL (6.4-8.2)
[2022-01-25 06:57] LABS: BILIRUBIN,TOTAL 1.5 MG/DL (0.1-1.0)
[2022-01-25 06:59] LABS: CREATININE SERUM 1.14 MG/DL (0.60-1.30)
[2022-01-25 07:23] VITALS: BP 143/60
[2022-01-25] MEDS: CELECOXIB 100 MG (CeleBREX) CAP PO SCH ×2 (08:02→20:11)
[2022-01-25] MEDS: ALLOPURINOL 300 MG (ZYLOPRIM) TAB PO SCH (08:02)
[2022-01-25] MEDS: ROSUVASTATIN 10 MG (CRESTOR) TABLET PO SCH (08:02)
[2022-01-25] MEDS: doxAzosin 4 MG (CARDURA) TAB PO SCH (08:02)
[2022-01-25] MEDS: ASPIRIN E.C. 81 MG (ECOTRIN) TAB PO SCH ×2 (08:02→18:20)
[2022-01-25] MEDS: DOCUSATE SODIUM 100 MG (COLACE) CAP PO SCH ×2 (08:02→20:11)
[2022-01-25] MEDS: [UNRECOGNIZED DRUG - REMARK] PO SCH (08:03)
[2022-01-25] MEDS: TRIAMT/HCTZ 37.5-25 MG TAB PO SCH (08:03)
[2022-01-25] MEDS: polyethylene glycoL POWDER 17 GM (MIRALAX) PACK PO SCH ×2 (09:37→19:49)
[2022-01-25] MEDS: SENNA W/DOCUSATE (SENOKOT S) TABLET PO SCH ×2 (09:38→20:11)
--- NOTE | 2022-01-25 10:14 | Occupational Ther Daily Note ---
OT Current Status-Daily Note Subjective Pt alert, laying in bed with HOB raised. Pt agreed to therapy. No c/ pain reported. Mental Status/Objective Patient Orientation: Person, Place, Time, Situation ADL-Treatment Pt agreed to complete a shower at this time. Pt transferred from supine to EOB. Pt sit-stand from raised EOB to FWW with Mod A. Pt stated he feels like he has gotten weaker due to not getting out of bed on Tuesday. Pt ambulated to bathroom using FWW with CGA. Pt transferred to shower bench, required verbal cues for proper sequence. While still in standing, pt doffed LB dressing. Pt was able to doff LLE sock, required assist to doff R. Pt cleansed/dried UB, chest, abdomen, upper/lower LB, lana area, and buttocks with supervision. Pt required shower bench, long handled sponge, grab bars to complete shower safely. Post shower, pt SPT from shower bench to chair. After set up, pt donned UB dressing. Pt able to thread LLE through LB dressing, required assist to thread RLE. Pt sit-stand from chair to FWW with CGA. While in standing pt hike LB dressing with min A. Pt ambulated to room using FWW with CGA. Pt transferred to recliner with CGA. After session, pt sitting in recliner. All needs met and call light in reach. Therapy Code Descriptions/Definitions Functional [place] Measure: 0=Not Assessed/NA 4=Minimal Assistance 1=Total Assistance 5=Supervision or Setup 2=Maximal Assistance 6=Modified [place] 3=Moderate Assistance 7=Complete IndependenceSCALE: Activities may be completed with or without assistive devices. 7-Kumywdcbvu-ctlopnw completes the activity by him/herself with no assistance from a helper. 5-Set-up or Clean-up Assistance-helper sets up or cleans up; patient completes activity. [place] assists only prior to or following the activity. 4-Supervision or Touching Assistance-helper provides verbal cues and/or touching/steadying and/or contact guard assistance as patient completes activity. Assistance may be provided throughout the activity or intermittently. 3-Partial/Moderate Assistance-helper does LESS THAN HALF the effort. [place] lifts, holds or supports trunk or limbs, but provides less than half the effort. 2-Substantial/Maximal Assistance-helper does MORE THAN HALF the effort. [place] lifts or holds trunk or limbs and provides more than half the effort. 1-Jcdolhbur-lgoata does ALL the effort. Patient does none of the effort to complete the activity. Or, the assistance of 2 or more helpers is required for the patient to complete the activity. If activity was not attempted, code reason: 7-Patient Refused. 9-Not Applicable-not attempted and the patient did not perform the activity before the current illness, exacerbation or injury. 10-Not Attempted due to Environmental Limitations-(lack of equipment, weather restraints, etc.). 88-Not Attempted due to Medical Conditions or Safety Concerns. Education OT Patient Education: Correct positioning, Energy conservation, Modified ADL techniques, Safety issues, Transfer techniques Teaching Recipient: Patient Teaching Methods: Demonstration, Discussion Response to Teaching: Verbalize Understanding, Return Demonstration OT Short Term Goals Short Term Goals Time Frame: Jan 29, 2022 Toileting hygiene: 4 Shower/bathe self: 4 Lower body dressin Putting on/taking off footwear: 3 OT Jail Goals [employer] Gr[employer] Machine Goals Time Frame: Feb 12, 2022 Eating (QC): 6 Oral Hygiene (QC): 6 Toileting Hygiene (QC): 6 Shower/Bathe Self (QC): 6 Upper Body Dressing (QC): 6 Lower Body Dressing (QC): 6 On/Off Footwear (QC): 6 Additional Goals: 1-Demonstrate ADL Tasks, 2-Verbalize Understanding, 3- ImproveStrength/Praful 1=Demonstrate adherence to instructed precautions during ADL tasks. 2=Patient will verbalize/demonstrate understanding of assistive devices/modifications for ADL. 3=Patient will improve strength/tolerance for activity to enable patient to perform ADL's. OT Education/Plan Problem List/Assessment Assessment: Decreased Activ Tolerance, Decreased UE Strength, Impaired I ADL's, Impaired Self-Care Skills Discharge Recommendations Plan/Recommendations: Continue POC Treatment Plan/Plan of Care Patient would benefit from OT for education, treatment and training to promote independence in ADL's, mobility, safety and/or upper extremity function for ADL's. Plan of Care: ADL Retraining, Functional Mobility, UE Funct Exercise/Act Treatment Duration: Feb 12, 2022 Frequency: At least 5 of 7 days/Wk (IRF) Estimated Hrs Per Day: 1.5 hours per day Agreement: Yes Rehab Potential: Good Time/GCodes Start Time: 08:00 Stop Time: 09:00 Total Time Billed (hr/min): 60 Billed Treatment Time 1 visit-ADL 4 (60 mins) CHACHA VICTORIA Jan 25, 2022 10:14
[2022-01-25] MEDS: PANTOPRAZOLE 20 MG TABLET (PROTONIX) PO SCH (11:07)
--- NOTE | 2022-01-25 12:08 | Physical Therapy Daily Note ---
PT Daily Note-Current Subjective Pt sitting in recliner upon arrival. Pt agrees to PT but needs encouragement to continue to push self. Pain Location: Right Location Body Site: Knee Pain Description: Ache Comment: Reported but not rated Mental Status Patient Orientation: Person, Place, Situation Attachments: [place] Transfers SCALE: Activities may be completed with or without assistive devices. 4-Ylaoztzvxs-krlarnr completes the activity by him/herself with no assistance from a helper. 5-Set-up or Clean-up Assistance-helper sets up or cleans up; patient completes activity. [place] assists only prior to or following the activity. 4-Supervision or Touching Assistance-helper provides verbal cues and/or touching/steadying and/or contact guard assistance as patient completes activity. Assistance may be provided throughout the activity or intermittently. 3-Partial/Moderate Assistance-helper does LESS THAN HALF the effort. [place] lifts, holds or supports trunk or limbs, but provides less than half the effort. 2-Substantial/Maximal Assistance-helper does MORE THAN HALF the effort. [place] lifts or holds trunk or limbs and provides more than half the effort. 6-Ecmvmsypx-xeblle does ALL the effort. Patient does none of the effort to complete the activity. Or, the assistance of 2 or more helpers is required for the patient to complete the activity. If activity was not attempted, code reason: 7-Patient Refused. 9-Not Applicable-not attempted and the patient did not perform the activity before the current illness, exacerbation or injury. 10-Not Attempted due to Environmental Limitations-(lack of equipment, weather restraints, etc.). 88-Not Attempted due to Medical Conditions or Safety Concerns. Sit to Stand (QC): 4 Weight Bearing Right Lower Extremity: Right Weight Bearing/Tolerated Left Lower Extremity: Left Full Weight Bearing Gait Training Does the Patient Walk?: Yes Distance: 150' x2 Walk 10 feet (QC): 4 Walk 50 ft with 2 Turns(QC): 4 Walk 150 ft (QC): 4 Gait Persons Needed: 1 Gait Assistive Device: FWW Exercises NuStep Minutes: 12 NuStep Workload: 4 Treatments TF to standing and amb. in hallway, taking a couple RB as needed. Pt uses NuStep for 12m at WL 4 then takes RB. Pt amb. in hallway and returns to room to use urinal before TF to recliner. All needs met, call light in hand. Assessment Current Status: Fair Progress Pt needs encouragement to continue to push self for improved mobility and ROM. PT Short Term Goals Short Term Goals Time Frame: Jan 27, 2022 Sit to lyin (SBA) Lying to sitting on side of be: 4 (SBA) Sit to stand: 3 (min) Chair/jtz-zf-pchws transfer: 3 (min) Toilet transfer: 3 (min) Walk 10 feet: 4 Walk 50 feet with two turns: 4 Walk 150 feet: 4 1 step (curb): 3 PT Longterm Goals Longterm Goals PT Longterm Goals Time Frame: Feb 10, 2022 Roll Left & Right (QC): 6 Sit to Lying (QC): 6 Lying-Sitting on Side/Bed(QC): 6 Sit to Stand (QC): 6 Chair/Cna-wl-Hqemz Xfer(QC): 6 Toilet Transfer (QC): 6 Car Transfer (QC): 6 Does the Patient Walk: Yes Walk 10 feet (QC): 6 Walk 50ft with 2 Turns (QC): 6 Walk 150 ft (QC): 6 Walking 10ft on Uneven Surface: 6 1 Step (curb) (QC): 6 4 Steps (QC): 4 12 Steps (QC): 4 Picking up an Object (QC): 6 Does the Pt use WC or Scooter?: No Wheel 50 feet with 2 turns (QC: 09 Type: N/A Wheel 150 feet: 09 Type: N/A PT Plan Problem List Problem List: Activity Tolerance, Gait Treatment/Plan Treatment Plan: Continue Plan of Care Treatment Plan: Concurrent Therapy, Education, Functional Activity Praful, Functional Strength, Group Therapy, Gait, Safety, Therapeutic Exercise, Transfers Treatment Duration: Feb 10, 2022 Frequency: At least 5 of 7 days/Wk (IRF) Estimated Hrs Per Day: 1.5 hours per day Patient and/or Family Agrees t: Yes Safety Risks/Education Patient Education: Gait Training, Transfer Techniques, Correct Positioning, Safety Issues Teaching Recipient: Patient Teaching Methods: Discussion Response to Teaching: Verbalize Understanding Time/GCodes Time In: 1000 Time Out: 1100 Total Billed Treatment Time: 60 Total Billed Treatment 1, GT x2 (30m), EX (15m) & FA (15m) DANNY BURT PTA Jan 25, 2022 12:08
--- NOTE | 2022-01-25 12:22 | Occupational Ther Daily Note ---
OT Current Status-Daily Note Subjective Pt alert, sitting in recliner when OT entered. Pt agreed to therapy. No c/o pain reported. Mental Status/Objective Patient Orientation: Person, Place, Time, Situation ADL-Treatment Pt requested to complete oral hygiene. Pt sit-stand from recliner to FWW with CGA. Pt ambulated to bathroom sink and completed oral hygiene while standing with CGA. Increase time due to slow mobility. Therapy Code Descriptions/Definitions Functional [place] Measure: 0=Not Assessed/NA 4=Minimal Assistance 1=Total Assistance 5=Supervision or Setup 2=Maximal Assistance 6=Modified [place] 3=Moderate Assistance 7=Complete IndependenceSCALE: Activities may be completed with or without assistive devices. 7-Wvjbppzqtg-mexoclx completes the activity by him/herself with no assistance from a helper. 5-Set-up or Clean-up Assistance-helper sets up or cleans up; patient completes activity. [place] assists only prior to or following the activity. 4-Supervision or Touching Assistance-helper provides verbal cues and/or touching/steadying and/or contact guard assistance as patient completes activity. Assistance may be provided throughout the activity or intermittently. 3-Partial/Moderate Assistance-helper does LESS THAN HALF the effort. [place] lifts, holds or supports trunk or limbs, but provides less than half the effort. 2-Substantial/Maximal Assistance-helper does MORE THAN HALF the effort. [place] lifts or holds trunk or limbs and provides more than half the effort. 7-Npzoygqcc-zwoqkc does ALL the effort. Patient does none of the effort to complete the activity. Or, the assistance of 2 or more helpers is required for the patient to complete the activity. If activity was not attempted, code reason: 7-Patient Refused. 9-Not Applicable-not attempted and the patient did not perform the activity before the current illness, exacerbation or injury. 10-Not Attempted due to Environmental Limitations-(lack of equipment, weather restraints, etc.). 88-Not Attempted due to Medical Conditions or Safety Concerns. Other Treatment Pt participated in functional closet/room task of reaching for cones in closet, drawers, and counter tops for improved independence and safety once at home. Pt required verbals cues for proper placement of FWW when reaching for cones that were placed in closet, pt was able to return good demonstration. Pt demonstrated good safety awareness throughout task by making sure body was in center of FWW and making sure to have good balance before reaching across midline. Pt transferred back to recliner with CGA. After session, pt sitting recliner. All needs met and call light in reach. Education OT Patient Education: Correct positioning, Progress toward Goal/Update tx plan, Purpose of tx/functional activities, Safety issues, Transfer techniques Teaching Recipient: Patient Teaching Methods: Demonstration, Discussion Response to Teaching: Verbalize Understanding, Return Demonstration OT Short Term Goals Short Term Goals Time Frame: Jan 29, 2022 Toileting hygiene: 4 Shower/bathe self: 4 Lower body dressin Putting on/taking off footwear: 3 OT Industrial Machine System Technician Goals Skilled Nursing Goals Time Frame: Feb 12, 2022 Eating (QC): 6 Oral Hygiene (QC): 6 Toileting Hygiene (QC): 6 Shower/Bathe Self (QC): 6 Upper Body Dressing (QC): 6 Lower Body Dressing (QC): 6 On/Off Footwear (QC): 6 Additional Goals: 1-Demonstrate ADL Tasks, 2-Verbalize Understanding, 3- ImproveStrength/Praful 1=Demonstrate adherence to instructed precautions during ADL tasks. 2=Patient will verbalize/demonstrate understanding of assistive devices/modifications for ADL. 3=Patient will improve strength/tolerance for activity to enable patient to perform ADL's. OT Education/Plan Problem List/Assessment Assessment: Decreased Activ Tolerance, Decreased UE Strength, Impaired I ADL's, Impaired Self-Care Skills Discharge Recommendations Plan/Recommendations: Continue POC Treatment Plan/Plan of Care Patient would benefit from OT for education, treatment and training to promote independence in ADL's, mobility, safety and/or upper extremity function for ADL's. Plan of Care: ADL Retraining, Functional Mobility, UE Funct Exercise/Act Treatment Duration: Feb 12, 2022 Frequency: At least 5 of 7 days/Wk (IRF) Estimated Hrs Per Day: 1.5 hours per day Agreement: Yes Rehab Potential: Good Time/GCodes Start Time: 11:30 Stop Time: 12:00 Total Time Billed (hr/min): 30 Billed Treatment Time 1 visit- ADL 1 (14 mins) FA 1 ( 16 mins) CHACHA VICTORIA Jan 25, 2022 12:22
--- NOTE | 2022-01-25 15:02 | Physical Therapy Daily Note ---
PT Daily Note-Current Subjective Pt sitting in recliner upon arrival. Pt agrees to PT. Pt reports R knee feel like its in a bind. Pain Location: Right Location Body Site: Knee Pain Description: Ache Comment: Reports but doesn't rate Mental Status Patient Orientation: Person, Place, Situation Attachments: [place] Transfers SCALE: Activities may be completed with or without assistive devices. 1-Skdstbtsqo-vrpxjet completes the activity by him/herself with no assistance from a helper. 5-Set-up or Clean-up Assistance-helper sets up or cleans up; patient completes activity. [place] assists only prior to or following the activity. 4-Supervision or Touching Assistance-helper provides verbal cues and/or touching/steadying and/or contact guard assistance as patient completes activity. Assistance may be provided throughout the activity or intermittently. 3-Partial/Moderate Assistance-helper does LESS THAN HALF the effort. [place] lifts, holds or supports trunk or limbs, but provides less than half the effort. 2-Substantial/Maximal Assistance-helper does MORE THAN HALF the effort. [place] lifts or holds trunk or limbs and provides more than half the effort. 1-Uxphilqit-acvsim does ALL the effort. Patient does none of the effort to complete the activity. Or, the assistance of 2 or more helpers is required for the patient to complete the activity. If activity was not attempted, code reason: 7-Patient Refused. 9-Not Applicable-not attempted and the patient did not perform the activity before the current illness, exacerbation or injury. 10-Not Attempted due to Environmental Limitations-(lack of equipment, weather restraints, etc.). 88-Not Attempted due to Medical Conditions or Safety Concerns. Weight Bearing Right Lower Extremity: Right Weight Bearing/Tolerated Left Lower Extremity: Left Full Weight Bearing Exercises Supine Ex: Ankle pumps, Quad Set, Heel Slides Supine Reps: 15 Treatments SHEET ROCK NAILER focused on flexion & extension of R knee, stretching as well as improving ROM. All needs met, call light in hand. Assessment Current Status: Fair Progress Pt is self limiting at times and needs encouragement to push self so ROM and functionality is improved. PT Short Term Goals Short Term Goals Time Frame: Jan 27, 2022 Sit to lyin (SBA) Lying to sitting on side of be: 4 (SBA) Sit to stand: 3 (min) Chair/lvq-gu-zkgru transfer: 3 (min) Toilet transfer: 3 (min) Walk 10 feet: 4 Walk 50 feet with two turns: 4 Walk 150 feet: 4 1 step (curb): 3 PT Bus Driver Supervisor Goals Bus Driver Supervisor Goals PT Bus Driver Supervisor Goals Time Frame: Feb 10, 2022 Roll Left & Right (QC): 6 Sit to Lying (QC): 6 Lying-Sitting on Side/Bed(QC): 6 Sit to Stand (QC): 6 Chair/Wrz-uc-Jwtzt Xfer(QC): 6 Toilet Transfer (QC): 6 Car Transfer (QC): 6 Does the Patient Walk: Yes Walk 10 feet (QC): 6 Walk 50ft with 2 Turns (QC): 6 Walk 150 ft (QC): 6 Walking 10ft on Uneven Surface: 6 1 Step (curb) (QC): 6 4 Steps (QC): 4 12 Steps (QC): 4 Picking up an Object (QC): 6 Does the Pt use WC or Scooter?: No Wheel 50 feet with 2 turns (QC: 09 Type: N/A Wheel 150 feet: 09 Type: N/A PT Plan Problem List Problem List: Activity Tolerance, Functional Strength, ROM Treatment/Plan Treatment Plan: Continue Plan of Care Treatment Plan: Concurrent Therapy, Education, Functional Activity Praful, Functional Strength, Group Therapy, Gait, Safety, Therapeutic Exercise, Transfers Treatment Duration: Feb 10, 2022 Frequency: At least 5 of 7 days/Wk (IRF) Estimated Hrs Per Day: 1.5 hours per day Patient and/or Family Agrees t: Yes Safety Risks/Education Patient Education: Correct Positioning Teaching Recipient: Patient Teaching Methods: Discussion Response to Teaching: Verbalize Understanding Time/GCodes Time In: 1340 Time Out: 1410 Total Billed Treatment Time: 30 Total Billed Treatment 1, EX x2 (30m) DANNY BURT PTA Jan 25, 2022 15:02
[2022-01-25 19:27] VITALS: BP 103/53
[2022-01-26] MEDS: MULTIVIT W/MINERALS TAB (THERAGRAN M) PO SCH (06:01)
--- NOTE | 2022-01-26 06:13 | PM&R Progress Note ---
Subjective HPI/CC On Admission Date Seen by Provider: Jan 26, 2022 Time Seen by Provider: 09:45 Subjective/Events-last exam 01/26/2022: Pt doing pretty well Dr. Nino saw him Edema in the right leg will require MORAIMA hose and DITPI wraps Noted minimal motivation 01/25/2022: Pt doing pretty well Pain medication taken Dr. Nino called to check on him 01/24/2022: Patient doing really well No pain is reported Increasing stamina Bowel regimen maintained 01/23/2022: Patient doing very well Increasing stamina Pain well controlled Bowel regimen maintained 01/22/2022: Patient doing really well Dr. Nino pleased with his progress Increasing stamina from post Covid fatigue Check meds and labs Pain control good Bowel regimen maintain 01/21/2022: Patient doing really well Working with therapy Feels like he is much improved strength claudio Labs reviewed Pain control Bowel regimen maintained Review of Systems General: Fatigue, Malaise Musculoskeletal: leg pain Objective Exam Vital Signs Vital Signs Date Time Temp Pulse Resp B/P (MAP) Pulse Ox O2 Delivery O2 Flow Rate FiO2 01/26/22 20:36 Room Air 01/26/22 19:53 35.6 55 16 121/58 (79) 95 Capillary Refill : General Appearance: No Apparent Distress, WD/WN, Chronically ill, Obese HEENT: PERRL/EOMI, Normal ENT Inspection, Pharynx Normal Neck: Full Range of Motion, Normal Inspection, Non Tender, Supple, Carotid Bruit Respiratory: Chest Non Tender, Lungs Clear, Normal Breath Sounds, No Accessory Muscle Use, No Respiratory Distress Cardiovascular: Regular Rate, Rhythm, No Edema, No Gallop, No JVD, No Murmur, Normal Peripheral Pulses Gastrointestinal: Normal Bowel Sounds, No Organomegaly, No Pulsatile Mass, Non Tender, Soft Back: Normal Inspection, No CVA Tenderness, No Vertebral Tenderness Extremity: Normal Capillary Refill, Normal Inspection, Normal Range of Motion (Except right leg), Non Tender, No Calf Tenderness, No Pedal Edema Neurologic/Psychiatric: Alert, Oriented x3, No Motor/Sensory Deficits, Normal Mood/Affect, 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 FIM Transfers Therapy Code Descriptions/Definitions Functional [place] Measure: 0=Not Assessed/NA 4=Minimal Assistance 1=Total Assistance 5=Supervision or Setup 2=Maximal Assistance 6=Modified [place] 3=Moderate Assistance 7=Complete IndependenceSCALE: Activities may be completed with or without assistive devices. 9-Zktmrnhbln-woxsykx completes the activity by him/herself with no assistance from a helper. 5-Set-up or Clean-up Assistance-helper sets up or cleans up; patient completes activity. [place] assists only prior to or following the activity. 4-Supervision or Touching Assistance-helper provides verbal cues and/or touching/steadying and/or contact guard assistance as patient completes activity. Assistance may be provided throughout the activity or intermittently. 3-Partial/Moderate Assistance-helper does LESS THAN HALF the effort. [place] lifts, holds or supports trunk or limbs, but provides less than half the effort. 2-Substantial/Maximal Assistance-helper does MORE THAN HALF the effort. [place] lifts or holds trunk or limbs and provides more than half the effort. 4-Bxbuycclr-gcbmvk does ALL the effort. Patient does none of the effort to complete the activity. Or, the assistance of 2 or more helpers is required for the patient to complete the activity. If activity was not attempted, code reason: 7-Patient Refused. 9-Not Applicable-not attempted and the patient did not perform the activity before the current illness, exacerbation or injury. 10-Not Attempted due to Environmental Limitations-(lack of equipment, weather restraints, etc.). 88-Not Attempted due to Medical Conditions or Safety Concerns. Roll Left to Right (QC): 6 Sit to Lying (QC): 4 Sit to Stand (QC): 4 Chair/Blx-sr-Rpphq Xfer(QC): 4 Car Transfer (QC): 3 Gait Training Does the Patient Walk?: Yes Distance: 150' x2 Walk 10 feet (QC): 4 Walk 50 ft with 2 Turns(QC): 4 Walk 150 ft (QC): 4 Walking 10ft/uneven surface-QC: 4 Gait Persons Needed: 1 Gait Assistive Device: FWW Wheelchair Training Does the Pt Use a Wheelchair?: No Wheel 50 ft with 2 turns (QC): 09 Wheel 150 ft (QC): 09 Type of Wheelchair: N/A Stair Training 1 Step (curb) (QC): 88 4 Steps (QC): 88 12 Steps (QC): 88 Balance Picking up an Object (QC): 10 ADL-Treatment Eating (QC): 6 (IND with breakfast per pt report.) Oral Hygiene (QC): 4 (SBA standing at sink.) Bathing Location: L Arm, R Arm, L Upper Leg, R Upper Leg, L Lower Leg (including foot), R Lower Leg (including foot) (Pt used long handled sponge ), Chest, Abdomen, Buttocks (Pt completed cleansing buttocks while in sitting ), Perineal Area Shower/Bathe Self (QC): 3 (Min A with feet and buttocks.) Upper Body Dressing (QC): 5 (set up) Lower Body Dressing (QC): 2 On/Off Footwear (QC): 2 (Pt able to doff L gripper sock, assist doffing R. Assist donning bilateral.) Toileting Hygiene (QC): 2 Toilet Transfer (QC): 2 Assessment/Plan Assessment and Plan Assess & Plan/Chief Complaint Assessment: Status post uncomplicated right total knee replacement by Dr. Nino on 01/18/2022 SOHA on CPAP Post Covid syndrome fatigue Hypertension Hyperlipidemia BPH Acute blood loss anemia Obesity BMI 42 Plan: Rehab protocol Monitor blood pressure Pain control Constipation management 01/21/2022: Supportive care Rehab protocol CPAP 01/22/2022: Supportive care Monitor closely 01/23/2022: Supportive care Increase stamina 01/24/2022: Supportive care Increase stamina 01/25/2022: Supportive care 01/26/2022: Improved status Discharge home soon (1) Status post right knee replacement (2) SOHA on CPAP (3) Obesity (4) BPH (benign prostatic hyperplasia) (5) Hypertension (6) Hyperlipidemia (7) Acute blood loss anemia (8) Post-COVID syndrome (9) Fatigue (10) Osteoarthritis of right knee JOHNNY VARMA DO Jan 26, 2022 06:13
[2022-01-26 07:30] VITALS: BP 94/51
--- NOTE | 2022-01-26 08:24 | Progress Note - Ortho ---
Progress Note Subjective Date of Exam 01/26/22 Chief Complaint POD #8 R TKA HPI/Events since last exam making progress with rehab, pain improving Review of Systems - Allergies: Coded Allergies: Penicillins (Unverified Allergy, Unknown, 01/14/22) Home Meds Active Scripts Aspirin (Aspirin EC) 81 Mg Tablet.dr, 81 MG PO BID WITH MEALS for 14 Days, #28 TAB 0 Refills Prov:EDIE HERNANDEZ MD 01/20/22 Reported Medications Triamterene/Hydrochlorothiazid (Triamterene-Hctz 37.5-25 mg Tb) 1 Each Tablet, 0.5 EA PO DAILY, TAB 01/18/22 Doxazosin Mesylate (Doxazosin Mesylate) 4 Mg Tablet, 2 MG PO DAILY, TAB TAKES OF A 4MG 01/18/22 Celecoxib (Celebrex) 200 Mg Capsule, 200 MG PO BID, CAP 01/14/22 Allopurinol (Allopurinol) 300 Mg Tablet, 300 MG PO DAILY, TAB 01/14/22 Rosuvastatin Calcium (Rosuvastatin Calcium) 10 Mg Tablet, 10 MG PO DAILY, TAB 01/14/22 Telmisartan (Telmisartan) 80 Mg Tablet, 80 MG PO DAILY, TAB 01/14/22 Aspirin (Aspirin) 81 Mg Tab.chew, 81 MG PO, TAB 01/14/22 Omeprazole Magnesium (Prilosec Otc) 20 Mg Tablet.dr, 20 MG PO DAILY, TAB 01/14/22 Objective Exam Right Knee: Incision C/D/I, adhesive blisters drained, +DF of ankle, no s/s of DVT Vital Signs Vital Signs Date Time Temp Pulse Resp B/P (MAP) Pulse Ox O2 Delivery O2 Flow Rate FiO2 01/26/22 07:30 36.6 43 20 94/51 (65) 94 Room Air 01/25/22 20:20 Room Air 01/25/22 19:27 36.6 52 16 103/53 (70) 92 Room Air 01/25/22 09:39 Room Air Assessment and Plan Assessment Right Knee Primary Osteoarthritis s/p Right Total Knee Arthroplasty Problem List Right Knee Primary Osteoarthritis s/p Right Total Knee Arthroplasty Plan Continue rehab Discussed swelling in lower leg Arrange f/u with me once d/c plans are known Final Diagonsis Right Knee Primary Osteoarthritis s/p Right Total Knee Arthroplasty Level of the visit: Level 3 (postop global) EDIE HERNANDEZ MD Jan 26, 2022 08:24
[2022-01-26] MEDS: ASPIRIN E.C. 81 MG (ECOTRIN) TAB PO SCH ×2 (08:25→18:07)
[2022-01-26] MEDS: doxAzosin 4 MG (CARDURA) TAB PO SCH (08:26)
[2022-01-26] MEDS: ROSUVASTATIN 10 MG (CRESTOR) TABLET PO SCH (08:26)
[2022-01-26] MEDS: CELECOXIB 100 MG (CeleBREX) CAP PO SCH ×2 (08:26→20:29)
[2022-01-26] MEDS: DOCUSATE SODIUM 100 MG (COLACE) CAP PO SCH ×2 (08:26→20:29)
[2022-01-26] MEDS: PANTOPRAZOLE 20 MG TABLET (PROTONIX) PO SCH (08:26)
[2022-01-26] MEDS: ALLOPURINOL 300 MG (ZYLOPRIM) TAB PO SCH (08:26)
--- NOTE | 2022-01-26 09:02 | Occupational Ther Daily Note ---
OT Current Status-Daily Note Subjective Pt in bed, agreeable to OT Tx. Pt agreeable to trying charlie wraps to BLEs for swelling. Mental Status/Objective Patient Orientation: Normal For Age ADL-Treatment Therapy Code Descriptions/Definitions Functional [place] Measure: 0=Not Assessed/NA 4=Minimal Assistance 1=Total Assistance 5=Supervision or Setup 2=Maximal Assistance 6=Modified [place] 3=Moderate Assistance 7=Complete IndependenceSCALE: Activities may be completed with or without assistive devices. 4-Gtyaedkomu-lsegnmo completes the activity by him/herself with no assistance from a helper. 5-Set-up or Clean-up Assistance-helper sets up or cleans up; patient completes activity. [place] assists only prior to or following the activity. 4-Supervision or Touching Assistance-helper provides verbal cues and/or touching/steadying and/or contact guard assistance as patient completes activity. Assistance may be provided throughout the activity or intermittently. 3-Partial/Moderate Assistance-helper does LESS THAN HALF the effort. [place] lifts, holds or supports trunk or limbs, but provides less than half the effort. 2-Substantial/Maximal Assistance-helper does MORE THAN HALF the effort. [place] lifts or holds trunk or limbs and provides more than half the effort. 1-Sdexdbqtf-xyawjw does ALL the effort. Patient does none of the effort to complete the activity. Or, the assistance of 2 or more helpers is required for the patient to complete the activity. If activity was not attempted, code reason: 7-Patient Refused. 9-Not Applicable-not attempted and the patient did not perform the activity before the current illness, exacerbation or injury. 10-Not Attempted due to Environmental Limitations-(lack of equipment, weather restraints, etc.). 88-Not Attempted due to Medical Conditions or Safety Concerns. Upper Body Dressing (QC): 5 (set up) Lower Body Dressing (QC): 4 (CGA, pt utilized director underwriter sales as needed.) On/Off Footwear: 3 (assist to don acewraps, pt able to don socks with min A using wide sock aide.) Toileting Hygiene (QC): 4 (SBA for urinal standing at FWW) Required increased time with all ADLs due to slow movements. Other Treatment Pt laying in bed, transferred supine to sit EOB, SBA, increased time. Pt sat EOB to change clothes, and use urinal while standing at walker. Pt educated on AE for LE dressing, utilizing as needed. Pt very slow with ADLs, requiring increased time and encouragement throughout. Pt transferred to recliner, SBA. Post tx, pt up in recliner, call light in reach and all needs met. CGA-Min A sit to stand from EOB, SBA stand to sit transfers. Education OT Patient Education: Correct positioning, Energy conservation, Exercise program, Modified ADL techniques, Progress toward Goal/Update tx plan, Purpose of tx/functional activities, Rehab process, Use of adapted equipment Teaching Recipient: Patient Response to Teaching: Verbalize Understanding OT Short Term Goals Short Term Goals Time Frame: Jan 29, 2022 Toileting hygiene: 4 Shower/bathe self: 4 Lower body dressin Putting on/taking off footwear: 3 OT Senior Living Goals Email Marketing Coordinator Goals Time Frame: Feb 12, 2022 Eating (QC): 6 Oral Hygiene (QC): 6 Toileting Hygiene (QC): 6 Shower/Bathe Self (QC): 6 Upper Body Dressing (QC): 6 Lower Body Dressing (QC): 6 On/Off Footwear (QC): 6 Additional Goals: 1-Demonstrate ADL Tasks, 2-Verbalize Understanding, 3- ImproveStrength/Praful 1=Demonstrate adherence to instructed precautions during ADL tasks. 2=Patient will verbalize/demonstrate understanding of assistive devices/modifications for ADL. 3=Patient will improve strength/tolerance for activity to enable patient to perform ADL's. OT Education/Plan Problem List/Assessment Assessment: Decreased Activ Tolerance, Decreased UE Strength, Impaired Funct Balance, Impaired I ADL's, Impaired Self-Care Skills Discharge Recommendations Plan/Recommendations: Continue POC Treatment Plan/Plan of Care Patient would benefit from OT for education, treatment and training to promote independence in ADL's, mobility, safety and/or upper extremity function for ADL's. Plan of Care: ADL Retraining, Functional Mobility, UE Funct Exercise/Act Treatment Duration: Feb 12, 2022 Frequency: At least 5 of 7 days/Wk (IRF) Estimated Hrs Per Day: 1.5 hours per day Agreement: Yes Rehab Potential: Good Time/GCodes Start Time: 08:00 Stop Time: 09:00 Total Time Billed (hr/min): 60 Billed Treatment Time 1, ADL 4 EDWIGE CHAIREZ OT Jan 26, 2022 09:02
[2022-01-26] MEDS: polyethylene glycoL POWDER 17 GM (MIRALAX) PACK PO SCH ×2 (09:24→20:29)
[2022-01-26] MEDS: SENNA W/DOCUSATE (SENOKOT S) TABLET PO SCH ×2 (09:25→20:29)
--- NOTE | 2022-01-26 09:25 | Physical Therapy Daily Note ---
PT Daily Note-Current Subjective Pt sitting in recliner upon arrival. Pt agrees PT. Pain Numeric Pain Scale: 4 Location: Right Location Body Site: Knee Pain Description: Ache Mental Status Patient Orientation: Person, Place, Situation Transfers SCALE: Activities may be completed with or without assistive devices. 9-Robuccgdts-dptdvdc completes the activity by him/herself with no assistance from a helper. 5-Set-up or Clean-up Assistance-helper sets up or cleans up; patient completes activity. [place] assists only prior to or following the activity. 4-Supervision or Touching Assistance-helper provides verbal cues and/or touching/steadying and/or contact guard assistance as patient completes activity. Assistance may be provided throughout the activity or intermittently. 3-Partial/Moderate Assistance-helper does LESS THAN HALF the effort. [place] lifts, holds or supports trunk or limbs, but provides less than half the effort. 2-Substantial/Maximal Assistance-helper does MORE THAN HALF the effort. [place] lifts or holds trunk or limbs and provides more than half the effort. 9-Iyvikrxyf-jqyoym does ALL the effort. Patient does none of the effort to complete the activity. Or, the assistance of 2 or more helpers is required for the patient to complete the activity. If activity was not attempted, code reason: 7-Patient Refused. 9-Not Applicable-not attempted and the patient did not perform the activity before the current illness, exacerbation or injury. 10-Not Attempted due to Environmental Limitations-(lack of equipment, weather restraints, etc.). 88-Not Attempted due to Medical Conditions or Safety Concerns. Sit to Stand (QC): 4 Weight Bearing Right Lower Extremity: Right Weight Bearing/Tolerated Left Lower Extremity: Left Full Weight Bearing Gait Training Does the Patient Walk?: Yes Distance: 150' x2 Walk 10 feet (QC): 5 Walk 50 ft with 2 Turns(QC): 5 Walk 150 ft (QC): 5 Gait Persons Needed: 1 Gait Assistive Device: FWW Pt needs encouragement to take bigger steps as pt shuffles when fatigued. Pt is WB more on R knee then last week but still demonstrates analgetic gait pattern. Exercises Supine Ex: Ankle pumps, Quad Set, Glut sets, Heel Slides, Hip abd/add Supine Reps: 15 Seated Therapy Exercises: Long arc quads, Hip flexion Seated Reps: 10 NuStep Minutes: 17 NuStep Workload: 5 Treatments (900-1000) TF to standing, declines need for BR or urinal, amb. in hallway using FWW. Pt takes standing RB as needed. Pt uses NuStep for 17m at WL 5, takes short RB then amb. in hallway and back to room. Pt needs assistance to use urinal. Pt returns to recliner with all needs met, call light in hand. ([id number]) Pt needs encouragement to participate in afternoon session as pt reports not seeing as much improvement as he would have hoped for. LION HUNTER reassures pt and advises that pt will get what he puts into therapy. LION HUNTER also explained why DIPTI wraps are being used/benefits of as asked by pt. Pt completes Supine & Seated EX in recliner. Pt resting all needs met, call light in hand. Assessment Current Status: Fair Progress Pt needs VC and encouragement to participate during tx. PT Short Term Goals Short Term Goals Time Frame: Jan 27, 2022 Sit to lyin (SBA) Lying to sitting on side of be: 4 (SBA) Sit to stand: 3 (min) Chair/elb-bj-ypftk transfer: 3 (min) Toilet transfer: 3 (min) Walk 10 feet: 4 Walk 50 feet with two turns: 4 Walk 150 feet: 4 1 step (curb): 3 PT Residential Housekeeper Goals Longterm Goals PT Longterm Goals Time Frame: Feb 10, 2022 Roll Left & Right (QC): 6 Sit to Lying (QC): 6 Lying-Sitting on Side/Bed(QC): 6 Sit to Stand (QC): 6 Chair/Zrc-sl-Eeppo Xfer(QC): 6 Toilet Transfer (QC): 6 Car Transfer (QC): 6 Does the Patient Walk: Yes Walk 10 feet (QC): 6 Walk 50ft with 2 Turns (QC): 6 Walk 150 ft (QC): 6 Walking 10ft on Uneven Surface: 6 1 Step (curb) (QC): 6 4 Steps (QC): 4 12 Steps (QC): 4 Picking up an Object (QC): 6 Does the Pt use WC or Scooter?: No Wheel 50 feet with 2 turns (QC: 09 Type: N/A Wheel 150 feet: 09 Type: N/A PT Plan Problem List Problem List: Activity Tolerance, Functional Strength, ROM Treatment/Plan Treatment Plan: Continue Plan of Care Treatment Plan: Concurrent Therapy, Education, Functional Activity Praful, Functional Strength, Group Therapy, Gait, Safety, Therapeutic Exercise, Transfers Treatment Duration: Feb 10, 2022 Frequency: At least 5 of 7 days/Wk (IRF) Estimated Hrs Per Day: 1.5 hours per day Patient and/or Family Agrees t: Yes Safety Risks/Education Patient Education: Reviewed Use of Ice, Correct Positioning Teaching Recipient: Patient Teaching Methods: Discussion Response to Teaching: Verbalize Understanding Time/GCodes Time In: 900 Time Out: 1000 Total Billed Treatment Time: 60 Total Billed Treatment (900-1000) 1, GT x2 (25m), EX (20m), FA (15m) ([id number]) 1, FA (15m) & EX x2 (25m) DANNY BURT LION HUNTER Jan 26, 2022 09:25
[2022-01-26] MEDS: TRIAMT/HCTZ 37.5-25 MG TAB PO SCH (09:56)
[2022-01-26] MEDS: [UNRECOGNIZED DRUG - REMARK] PO SCH (09:57)
--- NOTE | 2022-01-26 11:57 | Occupational Ther Daily Note ---
OT Current Status-Daily Note Subjective Pt in recliner, agreeable to OT Tx. ADL-Treatment Therapy Code Descriptions/Definitions Functional [place] Measure: 0=Not Assessed/NA 4=Minimal Assistance 1=Total Assistance 5=Supervision or Setup 2=Maximal Assistance 6=Modified [place] 3=Moderate Assistance 7=Complete IndependenceSCALE: Activities may be completed with or without assistive devices. 7-Dnvwkloqea-obzzxcn completes the activity by him/herself with no assistance from a helper. 5-Set-up or Clean-up Assistance-helper sets up or cleans up; patient completes activity. [place] assists only prior to or following the activity. 4-Supervision or Touching Assistance-helper provides verbal cues and/or touching/steadying and/or contact guard assistance as patient completes activity. Assistance may be provided throughout the activity or intermittently. 3-Partial/Moderate Assistance-helper does LESS THAN HALF the effort. [place] lifts, holds or supports trunk or limbs, but provides less than half the effort. 2-Substantial/Maximal Assistance-helper does MORE THAN HALF the effort. [place] lifts or holds trunk or limbs and provides more than half the effort. 3-Caijjepqm-swugtj does ALL the effort. Patient does none of the effort to compl ete the activity. Or, the assistance of 2 or more helpers is required for the patient to complete the activity. If activity was not attempted, code reason: 7-Patient Refused. 9-Not Applicable-not attempted and the patient did not perform the activity before the current illness, exacerbation or injury. 10-Not Attempted due to Environmental Limitations-(lack of equipment, weather restraints, etc.). 88-Not Attempted due to Medical Conditions or Safety Concerns. Toileting Hygiene (QC): 4 Other Treatment Pt in recliner, sit to stand transfer, min A. Pt used FWW to perform functional mobility to therapy gym, SBA. In order to increase BUE Strength and activity tolerance, pt completed nut/bolt block, 2lb wrist weights BUEs. Pt able to complete x7. Sit to stand from chair with CGA, pt used FWW to return to room, SBA. Pt stood at FWW to use urinal, SBA, then transferred to recliner. Pt sat abruptly, hollering out in pain, OT educated pt on gently lowering himself in order to decrease pain. Post tx, pt in recliner, call light in reach and all needs met. Education OT Patient Education: Correct positioning, Energy conservation, Exercise program, Modified ADL techniques, Progress toward Goal/Update tx plan, Purpose of tx/functional activities, Rehab process Teaching Recipient: Patient Teaching Methods: Discussion Response to Teaching: Verbalize Understanding OT Short Term Goals Short Term Goals Time Frame: Jan 29, 2022 Toileting hygiene: 4 Shower/bathe self: 4 Lower body dressin Putting on/taking off footwear: 3 OT Long-Term Goals Telesales Supervisor Goals Time Frame: Feb 12, 2022 Eating (QC): 6 Oral Hygiene (QC): 6 Toileting Hygiene (QC): 6 Shower/Bathe Self (QC): 6 Upper Body Dressing (QC): 6 Lower Body Dressing (QC): 6 On/Off Footwear (QC): 6 Additional Goals: 1-Demonstrate ADL Tasks, 2-Verbalize Understanding, 3- ImproveStrength/Praful 1=Demonstrate adherence to instructed precautions during ADL tasks. 2=Patient will verbalize/demonstrate understanding of assistive devices/modifications for ADL. 3=Patient will improve strength/tolerance for activity to enable patient to perform ADL's. OT Education/Plan Problem List/Assessment Assessment: Decreased Activ Tolerance, Decreased UE Strength, Impaired Funct Balance, Impaired I ADL's Discharge Recommendations Plan/Recommendations: Continue POC Treatment Plan/Plan of Care Patient would benefit from OT for education, treatment and training to promote independence in ADL's, mobility, safety and/or upper extremity function for ADL's. Plan of Care: ADL Retraining, Functional Mobility, UE Funct Exercise/Act Treatment Duration: Feb 12, 2022 Frequency: At least 5 of 7 days/Wk (IRF) Estimated Hrs Per Day: 1.5 hours per day Agreement: Yes Rehab Potential: Good Time/GCodes Start Time: 11:25 Stop Time: 11:55 Total Time Billed (hr/min): 30 Billed Treatment Time 1, FA 2 EDWIGE CHAIREZ OT Jan 26, 2022 11:57
[2022-01-26] MEDS: OMEPRAZOLE 20 MG TABLET PO SCH (16:35)
[2022-01-26 19:53] VITALS: BP 121/58
[2022-01-27] MEDS: MULTIVIT W/MINERALS TAB (THERAGRAN M) PO SCH (06:25)
[2022-01-27 08:00] VITALS: BP 120/55
[2022-01-27] MEDS: ROSUVASTATIN 10 MG (CRESTOR) TABLET PO SCH (08:03)
[2022-01-27] MEDS: DOCUSATE SODIUM 100 MG (COLACE) CAP PO SCH ×2 (08:03→20:30)
[2022-01-27] MEDS: CELECOXIB 100 MG (CeleBREX) CAP PO SCH ×2 (08:03→20:30)
[2022-01-27] MEDS: ALLOPURINOL 300 MG (ZYLOPRIM) TAB PO SCH (08:03)
[2022-01-27] MEDS: OMEPRAZOLE 20 MG TABLET PO SCH (08:04)
[2022-01-27] MEDS: ASPIRIN E.C. 81 MG (ECOTRIN) TAB PO SCH ×2 (08:04→17:40)
[2022-01-27] MEDS: doxAzosin 4 MG (CARDURA) TAB PO SCH (08:04)
[2022-01-27] MEDS: [UNRECOGNIZED DRUG - REMARK] PO SCH (08:05)
[2022-01-27] MEDS: TRIAMT/HCTZ 37.5-25 MG TAB PO SCH (08:05)
[2022-01-27] MEDS: SENNA W/DOCUSATE (SENOKOT S) TABLET PO SCH ×2 (08:45→20:30)
[2022-01-27] MEDS: polyethylene glycoL POWDER 17 GM (MIRALAX) PACK PO SCH ×2 (08:45→19:17)
--- NOTE | 2022-01-27 10:05 | Physical Therapy Daily Note ---
PT Daily Note-Current Subjective Pt sitting in recliner upon arrival. Pt agrees to PT but reports feeling a little "down" as pt doesn't feel as though he is seeing progress as quickly as he hoped for. Pain Numeric Pain Scale: 4 Location: Right, Incisional Location Body Site: Knee Pain Description: Ache Mental Status Patient Orientation: Person, Place, Situation Transfers SCALE: Activities may be completed with or without assistive devices. 2-Yppnwoxnpz-ycnxkzh completes the activity by him/herself with no assistance from a helper. 5-Set-up or Clean-up Assistance-helper sets up or cleans up; patient completes activity. [place] assists only prior to or following the activity. 4-Supervision or Touching Assistance-helper provides verbal cues and/or touching/steadying and/or contact guard assistance as patient completes activity. Assistance may be provided throughout the activity or intermittently. 3-Partial/Moderate Assistance-helper does LESS THAN HALF the effort. [place] lifts, holds or supports trunk or limbs, but provides less than half the effort. 2-Substantial/Maximal Assistance-helper does MORE THAN HALF the effort. [place] lifts or holds trunk or limbs and provides more than half the effort. 4-Vcntszrsk-exrvwi does ALL the effort. Patient does none of the effort to complete the activity. Or, the assistance of 2 or more helpers is required for the patient to complete the activity. If activity was not attempted, code reason: 7-Patient Refused. 9-Not Applicable-not attempted and the patient did not perform the activity before the current illness, exacerbation or injury. 10-Not Attempted due to Environmental Limitations-(lack of equipment, weather restraints, etc.). 88-Not Attempted due to Medical Conditions or Safety Concerns. Sit to Stand (QC): 3 Weight Bearing Right Lower Extremity: Right Weight Bearing/Tolerated Left Lower Extremity: Left Full Weight Bearing Gait Training Does the Patient Walk?: Yes Distance: 150' x2 Walk 10 feet (QC): 4 Walk 50 ft with 2 Turns(QC): 4 Walk 150 ft (QC): 4 Gait Persons Needed: 1 Gait Assistive Device: FWW IS PROJECT MANAGER doesn't provide any hands on assistance but continual VC for taking longer/bigger steps instead of shuffling. Pt reports feeling more normalized but had been walking incorrectly for so long that it is taking some getting used to. Exercises NuStep Minutes: 12 NuStep Workload: 5 Treatments Pt discussed feeling down about progress made so far. IS PROJECT MANAGER encouraged pt but advised the harder pt works the more results will show. Pt has improved strength, mobility w/VC and ROM but often self limits and needs pushed. TF to standing and amb. in hallway with VC for step length. Pt takes short RB then uses NuStep for 12m at WL 5 before amb. in hallway back to room to rest in recliner. Assessment Current Status: Fair Progress Pt takes extended time to complete tasks as well as needs VC continually for proper step length. PT Short Term Goals Short Term Goals Time Frame: Jan 27, 2022 Sit to lyin (SBA) Lying to sitting on side of be: 4 (SBA) Sit to stand: 3 (min) Chair/mwh-jg-uahfk transfer: 3 (min) Toilet transfer: 3 (min) Walk 10 feet: 4 Walk 50 feet with two turns: 4 Walk 150 feet: 4 1 step (curb): 3 PT Repairer Recreational Vehicle Goals Repairer Recreational Vehicle Goals PT Repairer Recreational Vehicle Goals Time Frame: Feb 10, 2022 Roll Left & Right (QC): 6 Sit to Lying (QC): 6 Lying-Sitting on Side/Bed(QC): 6 Sit to Stand (QC): 6 Chair/Bju-vb-Etmbu Xfer(QC): 6 Toilet Transfer (QC): 6 Car Transfer (QC): 6 Does the Patient Walk: Yes Walk 10 feet (QC): 6 Walk 50ft with 2 Turns (QC): 6 Walk 150 ft (QC): 6 Walking 10ft on Uneven Surface: 6 1 Step (curb) (QC): 6 4 Steps (QC): 4 12 Steps (QC): 4 Picking up an Object (QC): 6 Does the Pt use WC or Scooter?: No Wheel 50 feet with 2 turns (QC: 09 Type: N/A Wheel 150 feet: 09 Type: N/A PT Plan Problem List Problem List: Activity Tolerance Treatment/Plan Treatment Plan: Continue Plan of Care Treatment Plan: Concurrent Therapy, Education, Functional Activity Praful, Functional Strength, Group Therapy, Gait, Safety, Therapeutic Exercise, Transfers Treatment Duration: Feb 10, 2022 Frequency: At least 5 of 7 days/Wk (IRF) Estimated Hrs Per Day: 1.5 hours per day Patient and/or Family Agrees t: Yes Safety Risks/Education Patient Education: Gait Training, Transfer Techniques, Correct Positioning, Safety Issues Teaching Recipient: Patient Teaching Methods: Discussion Response to Teaching: Reinforcement Needed Time/GCodes Time In: 900 Time Out: 1000 Total Billed Treatment Time: 60 Total Billed Treatment 1, GT x2 (30m), EX (15m) & FA (15m) DANNY BURT PTA Jan 27, 2022 10:05
--- NOTE | 2022-01-27 10:36 | Occupational Ther Daily Note ---
OT Current Status-Daily Note Subjective Pt agreeable to OT tx. Requires moderate encouragement throughout session. Mental Status/Objective Patient Orientation: Person, Place, Time, Situation ADL-Treatment Therapy Code Descriptions/Definitions Functional [place] Measure: 0=Not Assessed/NA 4=Minimal Assistance 1=Total Assistance 5=Supervision or Setup 2=Maximal Assistance 6=Modified [place] 3=Moderate Assistance 7=Complete IndependenceSCALE: Activities may be completed with or without assistive devices. 6-Qnjqhxdnku-yrasqxy completes the activity by him/herself with no assistance from a helper. 5-Set-up or Clean-up Assistance-helper sets up or cleans up; patient completes activity. [place] assists only prior to or following the activity. 4-Supervision or Touching Assistance-helper provides verbal cues and/or touching/steadying and/or contact guard assistance as patient completes activity. Assistance may be provided throughout the activity or intermittently. 3-Partial/Moderate Assistance-helper does LESS THAN HALF the effort. [place] lifts, holds or supports trunk or limbs, but provides less than half the effort. 2-Substantial/Maximal Assistance-helper does MORE THAN HALF the effort. [place] l ifts or holds trunk or limbs and provides more than half the effort. 5-Tjdfukcxd-sdregu does ALL the effort. Patient does none of the effort to complete the activity. Or, the assistance of 2 or more helpers is required for the patient to complete the activity. If activity was not attempted, code reason: 7-Patient Refused. 9-Not Applicable-not attempted and the patient did not perform the activity before the current illness, exacerbation or injury. 10-Not Attempted due to Environmental Limitations-(lack of equipment, weather restraints, etc.). 88-Not Attempted due to Medical Conditions or Safety Concerns. Eating (QC): 6 (Per pt report.) Oral Hygiene (QC): 4 (Per clinical judgment, SBA at sink.) Shower/Bathe Self (QC): 5 (set up assist.) Upper Body Dressing (QC): 5 (set up assist.) Lower Body Dressing (QC): 4 (SBA) On/Off Footwear: 3 (Min assist with gripper socks, OT donned Tedhose. Pt utilized oncology nurse and sock aid.) Toileting Hygiene (QC): 4 (SBA, pt able to manage clothing and perform hygiene. Encouragement to complete hygiene himself.) Toilet Transfer (QC): 4 (SBA on/off BSC over toilet.) Other Treatment [id number]: Pt in bed, transferred supine to sit EOB, increased time and multiple attempts, SBA for verbal cues. Pt requests to use bathroom, stands from EOB, SBA. Pt requests urinal, but OT encouraged pt to use toilet instead as he needed to have a BM. Pt used FWW to go into bathroom and sat on toilet, SBA. Pt immediately stood up from toilet, again requests urinal. OT encourages pt to complete as he does at home, sitting or standing, but pt indicates he uses a urinal at home. OT handed pt urinal and he used it SBA. With further discussion, pt reports he uses a sink in his home as a urinal, without letting his know. Pt sat on toilet, attempted to have a BM, performed hygiene with encouragement, then transferred to recliner. Pt donned pants, doffed/donned gripper socks. Post tx, pt in recliner, call light in reach and all needs met. [id number]: Pt up in recliner, agreeable to OT tx with focus on showering. Pt transferred sit to stand, SBA, then used FWW into bathroom and onto SC, SBA. Pt doffed pants, OT assisted with socks and charlie wraps due to time constraint. Pt doffed shirt, then completed shower. Pt dried off, donned shirt, OT assisted with LE clothing due to time constraint. Pt transferred to recliner, SBA. Post tx, pt in recliner, call light in reach and all needs met. Education OT Patient Education: Correct positioning, Energy conservation, Modified ADL techniques, Progress toward Goal/Update tx plan, Purpose of tx/functional activities, Rehab process Teaching Recipient: Patient Teaching Methods: Discussion Response to Teaching: Verbalize Understanding, Reinforcement Needed OT Short Term Goals Short Term Goals Time Frame: Jan 29, 2022 Toileting hygiene: 4 Shower/bathe self: 4 Lower body dressin Putting on/taking off footwear: 3 OT Custodial Goals Custodial Goals Time Frame: Feb 12, 2022 Eating (QC): 6 Oral Hygiene (QC): 6 Toileting Hygiene (QC): 6 Shower/Bathe Self (QC): 6 Upper Body Dressing (QC): 6 Lower Body Dressing (QC): 6 On/Off Footwear (QC): 6 Additional Goals: 1-Demonstrate ADL Tasks, 2-Verbalize Understanding, 3- ImproveStrength/Praful 1=Demonstrate adherence to instructed precautions during ADL tasks. 2=Patient will verbalize/demonstrate understanding of assistive devices/modifications for ADL. 3=Patient will improve strength/tolerance for activity to enable patient to perform ADL's. OT Education/Plan Problem List/Assessment Assessment: Decreased Activ Tolerance, Decreased UE Strength, Impaired Funct Balance, Impaired I ADL's, Impaired Self-Care Skills Discharge Recommendations Plan/Recommendations: Continue POC Treatment Plan/Plan of Care Patient would benefit from OT for education, treatment and training to promote independence in ADL's, mobility, safety and/or upper extremity function for ADL's. Plan of Care: ADL Retraining, Functional Mobility, UE Funct Exercise/Act Treatment Duration: Feb 12, 2022 Frequency: At least 5 of 7 days/Wk (IRF) Estimated Hrs Per Day: 1.5 hours per day Agreement: Yes Rehab Potential: Good Time/GCodes Start Time: 08:15 ([id number]) Stop Time: 11:00 ([id number]) Total Time Billed (hr/min): 90 Billed Treatment Time [id number]: 1, ADL 3 (45') [id number]: 1, ADL 3 (45') EDWIGE CHAIREZ OT Jan 27, 2022 10:36
--- NOTE | 2022-01-27 11:13 | PM&R Progress Note ---
Subjective HPI/CC On Admission Date Seen by Provider: Jan 27, 2022 Time Seen by Provider: 12:00 Subjective/Events-last exam 01/27/2022: Pt having difficulty with motivation Pain is well controlled with one pain pill Bowel regimen maintained 01/26/2022: Pt doing pretty well Dr. Nino saw him Edema in the right leg will require MORAIMA hose and DIPTI wraps Noted minimal motivation 01/25/2022: Pt doing pretty well Pain medication taken Dr. Nino called to check on him 01/24/2022: Patient doing really well No pain is reported Increasing stamina Bowel regimen maintained 01/23/2022: Patient doing very well Increasing stamina Pain well controlled Bowel regimen maintained 01/22/2022: Patient doing really well Dr. Nino pleased with his progress Increasing stamina from post Covid fatigue Check meds and labs Pain control good Bowel regimen maintain 01/21/2022: Patient doing really well Working with therapy Feels like he is much improved strength claudio Labs reviewed Pain control Bowel regimen maintained Review of Systems General: Fatigue, Malaise Musculoskeletal: leg pain Neurological: Weakness Objective Exam Vital Signs Vital Signs Date Time Temp Pulse Resp B/P (MAP) Pulse Ox O2 Delivery O2 Flow Rate FiO2 01/27/22 20:10 Room Air 01/27/22 19:48 36.7 55 16 92/50 (64) 95 Capillary Refill : General Appearance: No Apparent Distress, WD/WN, Chronically ill, Obese HEENT: PERRL/EOMI, Normal ENT Inspection, Pharynx Normal Neck: Full Range of Motion, Normal Inspection, Non Tender, Supple, Carotid Bruit Respiratory: Chest Non Tender, Lungs Clear, Normal Breath Sounds, No Accessory Muscle Use, No Respiratory Distress Cardiovascular: Regular Rate, Rhythm, No Edema, No Gallop, No JVD, No Murmur, Normal Peripheral Pulses Gastrointestinal: Normal Bowel Sounds, No Organomegaly, No Pulsatile Mass, Non Tender, Soft Back: Normal Inspection, No CVA Tenderness, No Vertebral Tenderness Extremity: Normal Capillary Refill, Normal Inspection, Normal Range of Motion (Except right leg), Non Tender, No Calf Tenderness, No Pedal Edema Neurologic/Psychiatric: Alert, Oriented x3, No Motor/Sensory Deficits, Normal Mood/Affect, chocolate dipper II-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 FIM Transfers Therapy Code Descriptions/Definitions Functional [place] Measure: 0=Not Assessed/NA 4=Minimal Assistance 1=Total Assistance 5=Supervision or Setup 2=Maximal Assistance 6=Modified [place] 3=Moderate Assistance 7=Complete IndependenceSCALE: Activities may be completed with or without assistive devices. 0-Tepowderuo-ebahmps completes the activity by him/herself with no assistance from a helper. 5-Set-up or Clean-up Assistance-helper sets up or cleans up; patient completes activity. [place] assists only prior to or following the activity. 4-Supervision or Touching Assistance-helper provides verbal cues and/or touching/steadying and/or contact guard assistance as patient completes activity. Assistance may be provided throughout the activity or intermittently. 3-Partial/Moderate Assistance-helper does LESS THAN HALF the effort. [place] lifts, holds or supports trunk or limbs, but provides less than half the effort. 2-Substantial/Maximal Assistance-helper does MORE THAN HALF the effort. [place] lifts or holds trunk or limbs and provides more than half the effort. 0-Ccnahsxgk-ovswau does ALL the effort. Patient does none of the effort to complete the activity. Or, the assistance of 2 or more helpers is required for the patient to complete the activity. If activity was not attempted, code reason: 7-Patient Refused. 9-Not Applicable-not attempted and the patient did not perform the activity before the current illness, exacerbation or injury. 10-Not Attempted due to Environmental Limitations-(lack of equipment, weather restraints, etc.). 88-Not Attempted due to Medical Conditions or Safety Concerns. Roll Left to Right (QC): 6 Sit to Lying (QC): 4 Sit to Stand (QC): 3 Chair/Gij-mn-[place]o Xfer(QC): 4 Car Transfer (QC): 3 Gait Training Does the Patient Walk?: Yes Distance: 150' x2 Walk 10 feet (QC): 4 Walk 50 ft with 2 Turns(QC): 4 Walk 150 ft (QC): 4 Walking 10ft/uneven surface-QC: 4 Gait Persons Needed: 1 Gait Assistive Device: FWW Wheelchair Training Does the Pt Use a Wheelchair?: No Wheel 50 ft with 2 turns (QC): 09 Wheel 150 ft (QC): 09 Type of Wheelchair: N/A Stair Training 1 Step (curb) (QC): 88 4 Steps (QC): 88 12 Steps (QC): 88 Balance Picking up an Object (QC): 10 ADL-Treatment Eating (QC): 6 (Per pt report.) Oral Hygiene (QC): 4 (Per clinical judgment, SBA at sink.) Bathing Location: L Arm, R Arm, L Upper Leg, R Upper Leg, L Lower Leg (including foot), R Lower Leg (including foot) (Pt used long handled sponge ), Chest, Abdomen, Buttocks (Pt completed cleansing buttocks while in sitting ), Perineal Area Shower/Bathe Self (QC): 5 (set up assist.) Upper Body Dressing (QC): 5 (set up assist.) Lower Body Dressing (QC): 4 (SBA) On/Off Footwear (QC): 3 (Min assist with gripper socks, OT donned Tedhose. Pt utilized rn wound care and sock aid.) Toileting Hygiene (QC): 4 (SBA, pt able to manage clothing and perform hygiene. Encouragement to complete hygiene himself.) Toilet Transfer (QC): 4 (SBA on/off BSC over toilet.) Assessment/Plan Assessment and Plan Assess & Plan/Chief Complaint Assessment: Status post uncomplicated right total knee replacement by Dr. Nino on 01/18/2022 SOHA on CPAP Post Covid syndrome fatigue Hypertension Hyperlipidemia BPH Acute blood loss anemia Obesity BMI 42 Plan: Rehab protocol Monitor blood pressure Pain control Constipation management 01/21/2022: Supportive care Rehab protocol CPAP 01/22/2022: Supportive care Monitor closely 01/23/2022: Supportive care Increase stamina 01/24/2022: Supportive care Increase stamina 01/25/2022: Supportive care 01/26/2022: Improved status Discharge home soon 01/27/2022: Supportive care Discharge Tuesday (1) Status post right knee replacement (2) SOHA on CPAP (3) Obesity (4) BPH (benign prostatic hyperplasia) (5) Hypertension (6) Hyperlipidemia (7) Acute blood loss anemia (8) Post-COVID syndrome (9) Fatigue (10) Osteoarthritis of right knee JOHNNY VARMA DO Jan 27, 2022 11:13
--- NOTE | 2022-01-27 14:59 | Physical Therapy Daily Note ---
PT Daily Note-Current Subjective Pt sitting in recliner upon arrival. Pt agrees to PT but is nervous that d/c date will be set and pt won't be ready. Pain Numeric Pain Scale: 4 Location: Right Location Body Site: Knee Pain Description: Ache Mental Status Patient Orientation: Person, Place, Situation Transfers SCALE: Activities may be completed with or without assistive devices. 7-Yjjvjcjwpg-lxcyjpq completes the activity by him/herself with no assistance from a helper. 5-Set-up or Clean-up Assistance-helper sets up or cleans up; patient completes activity. [place] assists only prior to or following the activity. 4-Supervision or Touching Assistance-helper provides verbal cues and/or touching/steadying and/or contact guard assistance as patient completes activity. Assistance may be provided throughout the activity or intermittently. 3-Partial/Moderate Assistance-helper does LESS THAN HALF the effort. [place] lifts, holds or supports trunk or limbs, but provides less than half the effort. 2-Substantial/Maximal Assistance-helper does MORE THAN HALF the effort. [place] lifts or holds trunk or limbs and provides more than half the effort. 5-Koqxbscly-kejnia does ALL the effort. Patient does none of the effort to complete the activity. Or, the assistance of 2 or more helpers is required for the patient to complete the activity. If activity was not attempted, code reason: 7-Patient Refused. 9-Not Applicable-not attempted and the patient did not perform the activity before the current illness, exacerbation or injury. 10-Not Attempted due to Environmental Limitations-(lack of equipment, weather restraints, etc.). 88-Not Attempted due to Medical Conditions or Safety Concerns. Weight Bearing Right Lower Extremity: Right Weight Bearing/Tolerated Left Lower Extremity: Left Full Weight Bearing Exercises Supine Ex: Ankle pumps, Heel Slides Supine Reps: 15 (2 sets) Treatments Pt focuses on Quad sets & Heel Slides for improved ROM w/in R knee. ACCOUNT DEVELOPMENT REPRESENTATIVE encourages pt to push himself for improved progress. Pt enables himself/self limits and this is talked about. SW arrives at end of tx. All needs met, call light in hand. Assessment Current Status: Fair Progress Pt continues to need encouragement to push self for improved progress. PT Short Term Goals Short Term Goals Time Frame: Jan 27, 2022 Sit to lyin (SBA) Lying to sitting on side of be: 4 (SBA) Sit to stand: 3 (min) Chair/bkh-ns-wnxxh transfer: 3 (min) Toilet transfer: 3 (min) Walk 10 feet: 4 Walk 50 feet with two turns: 4 Walk 150 feet: 4 1 step (curb): 3 PT Jail Goals Circulation Analyst Goals PT Jail Goals Time Frame: Feb 10, 2022 Roll Left & Right (QC): 6 Sit to Lying (QC): 6 Lying-Sitting on Side/Bed(QC): 6 Sit to Stand (QC): 6 Chair/Agf-pi-Tbmml Xfer(QC): 6 Toilet Transfer (QC): 6 Car Transfer (QC): 6 Does the Patient Walk: Yes Walk 10 feet (QC): 6 Walk 50ft with 2 Turns (QC): 6 Walk 150 ft (QC): 6 Walking 10ft on Uneven Surface: 6 1 Step (curb) (QC): 6 4 Steps (QC): 4 12 Steps (QC): 4 Picking up an Object (QC): 6 Does the Pt use WC or Scooter?: No Wheel 50 feet with 2 turns (QC: 09 Type: N/A Wheel 150 feet: 09 Type: N/A PT Plan Problem List Problem List: Activity Tolerance, Functional Strength, ROM Treatment/Plan Treatment Plan: Continue Plan of Care Treatment Plan: Concurrent Therapy, Education, Functional Activity Praful, Functional Strength, Group Therapy, Gait, Safety, Therapeutic Exercise, Transfers Treatment Duration: Feb 10, 2022 Frequency: At least 5 of 7 days/Wk (IRF) Estimated Hrs Per Day: 1.5 hours per day Patient and/or Family Agrees t: Yes Safety Risks/Education Patient Education: Correct Positioning, Disease Process Teaching Recipient: Patient Teaching Methods: Discussion Response to Teaching: Verbalize Understanding Time/GCodes Time In: 1330 Time Out: 1400 Total Billed Treatment Time: 30 Total Billed Treatment 1, FA (10m) & EX (20m) DANNY BURT PTA Jan 27, 2022 14:59
[2022-01-27 19:48] VITALS: BP 92/50
--- NOTE | 2022-01-28 06:13 | PM&R Progress Note ---
Subjective HPI/CC On Admission Date Seen by Provider: Jan 28, 2022 Subjective/Events-last exam 01/27/2022: Pt having difficulty with motivation Pain is well controlled with one pain pill Bowel regimen maintained 01/26/2022: Pt doing pretty well Dr. Nino saw him Edema in the right leg will require MORAIMA hose and DIPTI wraps Noted minimal motivation 01/25/2022: Pt doing pretty well Pain medication taken Dr. Nino called to check on him 01/24/2022: Patient doing really well No pain is reported Increasing stamina Bowel regimen maintained 01/23/2022: Patient doing very well Increasing stamina Pain well controlled Bowel regimen maintained 01/22/2022: Patient doing really well Dr. Nino pleased with his progress Increasing stamina from post Covid fatigue Check meds and labs Pain control good Bowel regimen maintain 01/21/2022: Patient doing really well Working with therapy Feels like he is much improved strength claudio Labs reviewed Pain control Bowel regimen maintained Objective Exam Vital Signs Vital Signs Date Time Temp Pulse Resp B/P (MAP) Pulse Ox O2 Delivery O2 Flow Rate FiO2 01/28/22 07:33 35.8 57 18 119/58 (78) 97 Room Air Capillary Refill : General Appearance: No Apparent Distress, WD/WN, Chronically ill, Obese HEENT: PERRL/EOMI, Normal ENT Inspection, Pharynx Normal Neck: Full Range of Motion, Normal Inspection, Non Tender, Supple, Carotid Bruit Respiratory: Chest Non Tender, Lungs Clear, Normal Breath Sounds, No Accessory Muscle Use, No Respiratory Distress Cardiovascular: Regular Rate, Rhythm, No Edema, No Gallop, No JVD, No Murmur, Normal Peripheral Pulses Gastrointestinal: Normal Bowel Sounds, No Organomegaly, No Pulsatile Mass, Non Tender, Soft Back: Normal Inspection, No CVA Tenderness, No Vertebral Tenderness Extremity: Normal Capillary Refill, Normal Inspection, Normal Range of Motion (Except right leg), Non Tender, No Calf Tenderness, No Pedal Edema Neurologic/Psychiatric: Alert, Oriented x3, No Motor/Sensory Deficits, Normal Mood/Affect, photography sales associate II-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 FIM Transfers Therapy Code Descriptions/Definitions Functional [place] Measure: 0=Not Assessed/NA 4=Minimal Assistance 1=Total Assistance 5=Supervision or Setup 2=Maximal Assistance 6=Modified [place] 3=Moderate Assistance 7=Complete IndependenceSCALE: Activities may be completed with or without assistive devices. 5-Ytavbrwctt-ckmsguf completes the activity by him/herself with no assistance from a helper. 5-Set-up or Clean-up Assistance-helper sets up or cleans up; patient completes activity. [place] assists only prior to or following the activity. 4-Supervision or Touching Assistance-helper provides verbal cues and/or touching/steadying and/or contact guard assistance as patient completes activity. Assistance may be provided throughout the activity or intermittently. 3-Partial/Moderate Assistance-helper does LESS THAN HALF the effort. [place] lifts, holds or supports trunk or limbs, but provides less than half the effort. 2-Substantial/Maximal Assistance-helper does MORE THAN HALF the effort. [place] lifts or holds trunk or limbs and provides more than half the effort. 2-Sldemyqme-voqgff does ALL the effort. Patient does none of the effort to complete the activity. Or, the assistance of 2 or more helpers is required for the patient to complete the activity. If activity was not attempted, code reason: 7-Patient Refused. 9-Not Applicable-not attempted and the patient did not perform the activity befo re the current illness, exacerbation or injury. 10-Not Attempted due to Environmental Limitations-(lack of equipment, weather re straints, etc.). 88-Not Attempted due to Medical Conditions or Safety Concerns. Roll Left to Right (QC): 6 Sit to Lying (QC): 4 Sit to Stand (QC): 3 Chair/Txi-fl-Xqeoq Xfer(QC): 4 Car Transfer (QC): 3 Gait Training Does the Patient Walk?: Yes Distance: 150' x2 Walk 10 feet (QC): 4 Walk 50 ft with 2 Turns(QC): 4 Walk 150 ft (QC): 4 Walking 10ft/uneven surface-QC: 4 Gait Persons Needed: 1 Gait Assistive Device: FWW Wheelchair Training Does the Pt Use a Wheelchair?: No Wheel 50 ft with 2 turns (QC): 09 Wheel 150 ft (QC): 09 Type of Wheelchair: N/A Stair Training 1 Step (curb) (QC): 88 4 Steps (QC): 88 12 Steps (QC): 88 Balance Picking up an Object (QC): 10 ADL-Treatment Eating (QC): 6 (Per pt report.) Oral Hygiene (QC): 4 (Per clinical judgment, SBA at sink.) Bathing Location: L Arm, R Arm, L Upper Leg, R Upper Leg, L Lower Leg (including foot), R Lower Leg (including foot) (Pt used long handled sponge ), Chest, Abdomen, Buttocks (Pt completed cleansing buttocks while in sitting ), Perineal Area Shower/Bathe Self (QC): 5 (set up assist.) Upper Body Dressing (QC): 5 (set up assist.) Lower Body Dressing (QC): 4 (SBA) On/Off Footwear (QC): 3 (Min assist with gripper socks, OT donned Tedhose. Pt utilized meal packer and sock aid.) Toileting Hygiene (QC): 4 (SBA, pt able to manage clothing and perform hygiene. Encouragement to complete hygiene himself.) Toilet Transfer (QC): 4 (SBA on/off BSC over toilet.) Assessment/Plan Assessment and Plan Assess & Plan/Chief Complaint Assessment: Status post uncomplicated right total knee replacement by Dr. Nino on 01/18/2022 SOHA on CPAP Post Covid syndrome fatigue Hypertension Hyperlipidemia BPH Acute blood loss anemia Obesity BMI 42 Plan: Rehab protocol Monitor blood pressure Pain control Constipation management 01/21/2022: Supportive care Rehab protocol CPAP 01/22/2022: Supportive care Monitor closely 01/23/2022: Supportive care Increase stamina 01/24/2022: Supportive care Increase stamina 01/25/2022: Supportive care 01/26/2022: Improved status Discharge home soon 01/27/2022: Supportive care Discharge Tuesday (1) Status post right knee replacement (2) SOHA on CPAP (3) Obesity (4) BPH (benign prostatic hyperplasia) (5) Hypertension (6) Hyperlipidemia (7) Acute blood loss anemia (8) Post-COVID syndrome (9) Fatigue (10) Osteoarthritis of right knee JOHNNY VARMA DO Jan 28, 2022 06:13
[2022-01-28] MEDS: MULTIVIT W/MINERALS TAB (THERAGRAN M) PO SCH (06:34)
[2022-01-28 07:33] VITALS: BP 119/58
[2022-01-28] MEDS: SENNA W/DOCUSATE (SENOKOT S) TABLET PO SCH (07:43)
[2022-01-28] MEDS: ROSUVASTATIN 10 MG (CRESTOR) TABLET PO SCH (07:43)
[2022-01-28] MEDS: DOCUSATE SODIUM 100 MG (COLACE) CAP PO SCH (07:43)
[2022-01-28] MEDS: doxAzosin 4 MG (CARDURA) TAB PO SCH (07:43)
[2022-01-28] MEDS: ALLOPURINOL 300 MG (ZYLOPRIM) TAB PO SCH (07:44)
[2022-01-28] MEDS: ASPIRIN E.C. 81 MG (ECOTRIN) TAB PO SCH (07:44)
[2022-01-28] MEDS: polyethylene glycoL POWDER 17 GM (MIRALAX) PACK PO SCH (07:44)
[2022-01-28] MEDS: CELECOXIB 100 MG (CeleBREX) CAP PO SCH (07:44)
[2022-01-28] MEDS: TRIAMT/HCTZ 37.5-25 MG TAB PO SCH (07:49)
[2022-01-28] MEDS: OMEPRAZOLE 20 MG TABLET PO SCH (07:50)
[2022-01-28] MEDS: [UNRECOGNIZED DRUG - REMARK] PO SCH (07:50)
--- NOTE | 2022-01-28 08:39 | Occupational Ther Daily Note ---
OT Current Status-Daily Note Subjective Pt in recliner, agreeable to OT tx. Pt required moderate encouragement throughout treatment. Mental Status/Objective Patient Orientation: Normal For Age ADL-Treatment Therapy Code Descriptions/Definitions Functional [place] Measure: 0=Not Assessed/NA 4=Minimal Assistance 1=Total Assistance 5=Supervision or Setup 2=Maximal Assistance 6=Modified [place] 3=Moderate Assistance 7=Complete IndependenceSCALE: Activities may be completed with or without assistive devices. 0-Ltyrfpgkqe-xfyrjml completes the activity by him/herself with no assistance from a helper. 5-Set-up or Clean-up Assistance-helper sets up or cleans up; patient completes activity. [place] assists only prior to or following the activity. 4-Supervision or Touching Assistance-helper provides verbal cues and/or touching/steadying and/or contact guard assistance as patient completes activity. Assistance may be provided throughout the activity or intermittently. 3-Partial/Moderate Assistance-helper does LESS THAN HALF the effort. [place] lifts, holds or supports trunk or limbs, but provides less than half the effort. 2-Substantial/Maximal Assistance-helper does MORE THAN HALF the effort. [place] lifts or holds trunk or limbs and provides more than half the effort. 6-Gqzwynpku-pcmrap does ALL the effort. Patient does none of the effort to complete the activity. Or, the assistance of 2 or more helpers is required for the patient to complete the activity. If activity was not attempted, code reason: 7-Patient Refused. 9-Not Applicable-not attempted and the patient did not perform the activity before the current illness, exacerbation or injury. 10-Not Attempted due to Environmental Limitations-(lack of equipment, weather restraints, etc.). 88-Not Attempted due to Medical Conditions or Safety Concerns. Lower Body Dressing (QC): 5 (set up with financial service representative) Other Treatment Pt seated in recliner, donned pants after set up assistance. Pt used FWW to perform functional mobility to therapy gym, slow pace, SBA with cues to pick his feet up from the floor and take bigger steps due to pt's tendency to start shuffling. In order to increase BUE strength and activity tolerance, pt completed arm bike x15 mins, 20 Watt resistance, cues for motivation to continue with task, slow pace. Pt used FWW to return to room, SBA with cues to picking table worker his feet/take bigger steps. (SBA sit to/from stand transfers). Pt transferred to recliner. Post tx, pt in recliner, call light in reach and all needs met. Education OT Patient Education: Correct positioning, Energy conservation, Exercise program, Modified ADL techniques, Progress toward Goal/Update tx plan, Purpose of tx/functional activities Teaching Recipient: Patient Teaching Methods: Discussion Response to Teaching: Verbalize Understanding OT Short Term Goals Short Term Goals Time Frame: Jan 29, 2022 Toileting hygiene: 4 Shower/bathe self: 4 Lower body dressin Putting on/taking off footwear: 3 OT Mcfp Goals Service Electrician Goals Time Frame: Feb 12, 2022 Eating (QC): 6 Oral Hygiene (QC): 6 Toileting Hygiene (QC): 6 Shower/Bathe Self (QC): 6 Upper Body Dressing (QC): 6 Lower Body Dressing (QC): 6 On/Off Footwear (QC): 6 Additional Goals: 1-Demonstrate ADL Tasks, 2-Verbalize Understanding, 3-Im proveStrength/Praful 1=Demonstrate adherence to instructed precautions during ADL tasks. 2=Patient will verbalize/demonstrate understanding of assistive devices/modifications for ADL. 3=Patient will improve strength/tolerance for activity to enable patient to perform ADL's. OT Education/Plan Problem List/Assessment Assessment: Decreased Activ Tolerance, Decreased Safety Aware, Decreased UE Strength, Impaired I ADL's, Impaired Self-Care Skills Discharge Recommendations Plan/Recommendations: Continue POC Treatment Plan/Plan of Care Patient would benefit from OT for education, treatment and training to promote independence in ADL's, mobility, safety and/or upper extremity function for ADL's. Plan of Care: ADL Retraining, Functional Mobility, UE Funct Exercise/Act Treatment Duration: Feb 12, 2022 Frequency: At least 5 of 7 days/Wk (IRF) Estimated Hrs Per Day: 1.5 hours per day Agreement: Yes Rehab Potential: Good Time/GCodes Start Time: 08:00 Stop Time: 09:00 Total Time Billed (hr/min): 60 Billed Treatment Time 1, ADL (20'), FA (15'), EX 2 (25') EDWIGE CHAIREZ OT Jan 28, 2022 08:39
[2022-01-28] MEDS ORDERED: OXC5T PO (10:11)
[2022-01-28] MEDS ORDERED: ASPI-1238 PO (10:11)
[2022-01-28] MEDS ORDERED: SENN1TAB76 PO (10:11)
--- NOTE | 2022-01-28 10:15 | D/C HH Face to Face Order ---
D/C Face to Face Orders Reconcile Patient Problems Problems Reviewed?: Yes Instructions for Patient Patient Instructions/FollowUp: PCP [address] Nino 2 weeks Physician to follow Patient: PCP Discharge Diet for Home: No Restrictions Patient Problems: Right knee replacement Patient Data-Allergies,Ht & Wt Patient Allergies: Coded Allergies: Penicillins (Unverified Allergy, Unknown, 01/14/22) Home Health Need/Face to Face Date of Face to Face: Jan 28, 2022 Clinical Findings: Generalized weakness and fatigue, Instability, Muscle weakness, Pain with ambulation, Unsteady gait I have seen Pt watm-nz-hvat: Yes Discharged To: Home Diagnosis/Conditions: Right knee replacement Patient is Homebound due to: Muscle weakness, Pain w/ambulation, Shortness of breath/distress Homebound Status Due to the above stated illness, injury or surgical procedure (medical condition or diagnosis) and associated clinical findings, the patient is homebound because of his/her inability to leave home except with aid of a supportive device and/or person AND leaving the home requires a considerable and taxing effort or is medically contraindicated. Pt req the following assistanc: Walker Home Health Nursing Orders Home Health Services Order: Nursing Services, Medical Staff Manager-Evaluate & Treat, Physical Therapy-Evaluate & Treat Certify Stmt I certify that this patient is under my care and that I, a nurse practitioner or a physician; a dermatology physician assistant working with me, had a face to face encounter that - meets the physician face to face encounter requirements with this patient as dated. JOHNNY VARMA DO Jan 28, 2022 10:15
--- NOTE | 2022-01-28 10:16 | Discharge Summary ---
Diagnosis/Chief Complaint Date of Admission Jan 20, 2022 at 09:30 Date of Discharge Discharge Date: Jan 28, 2022 Discharge Diagnosis Assessment: Status post uncomplicated right total knee replacement by Dr. Nino on 01/18/2022 SOHA on CPAP Post Covid syndrome fatigue Hypertension Hyperlipidemia BPH Acute blood loss anemia Obesity BMI 42 Plan: Rehab protocol Monitor blood pressure Pain control Constipation management 01/21/2022: Supportive care Rehab protocol CPAP 01/22/2022: Supportive care Monitor closely 01/23/2022: Supportive care Increase stamina 01/24/2022: Supportive care Increase stamina 01/25/2022: Supportive care 01/26/2022: Improved status Discharge home soon 01/27/2022: Supportive care Discharge 01/28 Discharge Summary Discharge Physical Examination Allergies: Coded Allergies: Penicillins (Unverified Allergy, Unknown, 01/14/22) Vitals & I&Os Vital Signs Date Time Temp Pulse Resp B/P (MAP) Pulse Ox O2 Delivery O2 Flow Rate FiO2 01/28/22 12:50 35.8 57 18 119/58 97 Room Air General Appearance: Alert, Oriented X3, Cooperative Respiratory: Clear to Auscultation Cardiovascular: Regular Rate Hospital Course Was the Problem List Reviewed?: Yes Pt had an uneventful 9 day hospital course status post right knee replacement. He had post-COVID fatigue and deconditioning. He participated in all therapy but he was having significant difficulties with recovery. He was deemed stable for discharge but he will continue home care with additional recovery with PT/OT and nursing staff. He will have close follow-up with Dr. Nion Labs (last 24 hrs) Laboratory Tests 01/20/22 10:52: White Blood Count 10.4, Red Blood Count 3.74L, Hemoglobin 12.0L, Hematocrit 36L, Mean Corpuscular Volume 96, Mean Corpuscular Hemoglobin 32, Mean Corpuscular Hemoglobin Concent 33, Red Cell Distribution Width 13.1, Platelet Count 112L, Mean Platelet Volume 12.0, Immature Granulocyte % (Auto) 0, Neutrophils (%) (Auto) 66, Lymphocytes (%) (Auto) 18, Monocytes (%) (Auto) 11, Eosinophils (%) (Auto) 4, Basophils (%) (Auto) 1, Neutrophils # (Auto) 6.9, Lymphocytes # (Auto) 1.9, Monocytes # (Auto) 1.2H, Eosinophils # (Auto) 0.4H, Basophils # (Auto) 0.1, Immature Granulocyte # (Auto) 0.0, Percent Immature Platelet Fraction 6.2, Sodium Level 136, Potassium Level 3.7, Chloride Level 103, Carbon Dioxide Level 24, Anion Gap 9, Blood Urea Nitrogen 32H, Creatinine 1.05, Estimat Glomerular Filtration Rate 76, BUN/Creatinine Ratio 30, Glucose Level 100, Calcium Level 8.7, Corrected Calcium 8.9, Total Bilirubin 0.9, Aspartate Amino Transf (AST/SGOT) 32, Alanine Aminotransferase (ALT/SGPT) 28, Alkaline Phosphatase 85, Total Protein 6.9, Albumin 3.7 01/21/22 05:17: White Blood Count 6.5, Red Blood Count 3.24L, Hemoglobin 10.6L, Hematocrit 32L, Mean Corpuscular Volume 98, Mean Corpuscular Hemoglobin 33, Mean Corpuscular Hemoglobin Concent 33, Red Cell Distribution Width 13.1, Platelet Count 91L, Mean Platelet Volume 11.6, Immature Granulocyte % (Auto) 0, Neutrophils (%) (Auto) 54, Lymphocytes (%) (Auto) 23, Monocytes (%) (Auto) 15H, Eosinophils (%) (Auto) 8, Basophils (%) (Auto) 1, Neutrophils # (Auto) 3.5, Lymphocytes # (Auto) 1.5, Monocytes # (Auto) 0.9, Eosinophils # (Auto) 0.5H, Basophils # (Auto) 0.0, Immature Granulocyte # (Auto) 0.0, Sodium Level 135, Potassium Level 4.1, Chloride Level 100, Carbon Dioxide Level 25, Anion Gap 10, Blood Urea Nitrogen 36H, Creatinine 1.21, Estimat Glomerular Filtration Rate 64, BUN/Creatinine Ratio 30, Glucose Level 106H, Calcium Level 8.8, Corrected Calcium 9.4, Total Bilirubin 1.0, Aspartate Amino Transf (AST/SGOT) 31, Alanine Aminotransferase (ALT/SGPT) 29, Alkaline Phosphatase 75, Total Protein 6.2L, Albumin 3.3 01/25/22 06:23: White Blood Count 6.5, Red Blood Count 3.18L, Hemoglobin 10.4L, Hematocrit 31L, Mean Corpuscular Volume 97, Mean Corpuscular Hemoglobin 33, Mean Corpuscular Hemoglobin Concent 34, Red Cell Distribution Width 12.9, Platelet Count 132, Mean Platelet Volume 11.4, Immature Granulocyte % (Auto) 1, Neutrophils (%) (Auto) 52, Lymphocytes (%) (Auto) 21, Monocytes (%) (Auto) 16H, Eosinophils (%) (Auto) 10, Basophils (%) (Auto) 1, Neutrophils # (Auto) 3.4, Lymphocytes # (Auto) 1.4, Monocytes # (Auto) 1.1H, Eosinophils # (Auto) 0.6H, Basophils # (Auto) 0.0, Immature Granulocyte # (Auto) 0.0, Sodium Level 134L, Potassium Level 4.2, Chloride Level 101, Carbon Dioxide Level 24, Anion Gap 9, Blood Urea Nitrogen 35H, Creatinine 1.14, Estimat Glomerular Filtration Rate 69, BUN/Creatinine Ratio 31, Glucose Level 97, Calcium Level 9.1, Corrected Calcium 9.7, Total Bilirubin 1.5H, Aspartate Amino Transf (AST/SGOT) 44H, Alanine Aminotransferase (ALT/SGPT) 37, Alkaline Phosphatase 110, Total Protein 6.2L, Albumin 3.2 Pending Labs Laboratory Tests 01/20/22 10:52: White Blood Count 10.4, Red Blood Count 3.74, Hemoglobin 12.0, Hematocrit 36, Mean Corpuscular Volume 96, Mean Corpuscular Hemoglobin 32, Mean Corpuscular Hemoglobin Concent 33, Red Cell Distribution Width 13.1, Platelet Count 112, Mean Platelet Volume 12.0, Immature Granulocyte % (Auto) 0, Neutrophils (%) (Auto) 66, Lymphocytes (%) (Auto) 18, Monocytes (%) (Auto) 11, Eosinophils (%) (Auto) 4, Basophils (%) (Auto) 1, Neutrophils # (Auto) 6.9, Lymphocytes # (Auto) 1.9, Monocytes # (Auto) 1.2, Eosinophils # (Auto) 0.4, Basophils # (Auto) 0.1, Immature Granulocyte # (Auto) 0.0, Percent Immature Platelet Fraction 6.2, Sodium Level 136, Potassium Level 3.7, Chloride Level 103, Carbon Dioxide Level 24, Anion Gap 9, Blood Urea Nitrogen 32, Creatinine 1.05, Estimat Glomerular Filtration Rate 76, BUN/Creatinine Ratio 30, Glucose Level 100, Calcium Level 8.7, Corrected Calcium 8.9, Total Bilirubin 0.9, Aspartate Amino Transf (AST/SGOT) 32, Alanine Aminotransferase (ALT/SGPT) 28, Alkaline Phosphatase 85, Total Protein 6.9, Albumin 3.7 01/21/22 05:17: White Blood Count 6.5, Red Blood Count 3.24, Hemoglobin 10.6, Hematocrit 32, Mean Corpuscular Volume 98, Mean Corpuscular Hemoglobin 33, Mean Corpuscular Hemoglobin Concent 33, Red Cell Distribution Width 13.1, Platelet Count 91, Mean Platelet Volume 11.6, Immature Granulocyte % (Auto) 0, Neutrophils (%) (Auto) 54, Lymphocytes (%) (Auto) 23, Monocytes (%) (Auto) 15, Eosinophils (%) (Auto) 8, Basophils (%) (Auto) 1, Neutrophils # (Auto) 3.5, Lymphocytes # (Auto) 1.5, Monocytes # (Auto) 0.9, Eosinophils # (Auto) 0.5, Basophils # (Auto) 0.0, Immature Granulocyte # (Auto) 0.0, Sodium Level 135, Potassium Level 4.1, Chloride Level 100, Carbon Dioxide Level 25, Anion Gap 10, Blood Urea Nitrogen 36, Creatinine 1.21, Estimat Glomerular Filtration Rate 64, BUN/Creatinine Ratio 30, Glucose Level 106, Calcium Level 8.8, Corrected Calcium 9.4, Total Bilirubin 1.0, Aspartate Amino Transf (AST/SGOT) 31, Alanine Aminotransferase (ALT/SGPT) 29, Alkaline Phosphatase 75, Total Protein 6.2, Albumin 3.3 01/25/22 06:23: White Blood Count 6.5, Red Blood Count 3.18, Hemoglobin 10.4, Hematocrit 31, Mean Corpuscular Volume 97, Mean Corpuscular Hemoglobin 33, Mean Corpuscular Hemoglobin Concent 34, Red Cell Distribution Width 12.9, Platelet Count 132, Mean Platelet Volume 11.4, Immature Granulocyte % (Auto) 1, Neutrophils (%) (Auto) 52, Lymphocytes (%) (Auto) 21, Monocytes (%) (Auto) 16, Eosinophils (%) (Auto) 10, Basophils (%) (Auto) 1, Neutrophils # (Auto) 3.4, Lymphocytes # (Auto) 1.4, Monocytes # (Auto) 1.1, Eosinophils # (Auto) 0.6, Basophils # (Auto) 0.0, Immature Granulocyte # (Auto) 0.0, Sodium Level 134, Potassium Level 4.2, Chloride Level 101, Carbon Dioxide Level 24, Anion Gap 9, Blood Urea Nitrogen 35, Creatinine 1.14, Estimat Glomerular Filtration Rate 69, BUN/Creatinine Ratio 31, Glucose Level 97, Calcium Level 9.1, Corrected Calcium 9.7, Total Bilirubin 1.5, Aspartate Amino Transf (AST/SGOT) 44, Alanine Aminotransferase (ALT/SGPT) 37, Alkaline Phosphatase 110, Total Protein 6.2, Albumin 3.2 Discharge Home Medications: Active Scripts Active Stool Softener-Laxative Tablet (Sennosides/Docusate Sodium) 1 Each Tablet 1 Ea PO BID Oxyir Tablet (Oxycodone HCl) 5 Mg Tab 5-10 Mg PO Q4H PRN Aspirin EC (Aspirin) 81 Mg Tablet.dr 81 Mg PO BID WITH MEALS 14 Days after completing BID dose for 2 weeks then resume once daily Reported Triamterene-Hctz 37.5-25 mg Tb (Triamterene/Hydrochlorothiazid) 1 Each Tablet 0.5 Ea PO DAILY Doxazosin Mesylate 4 Mg Tablet 2 Mg PO DAILY TAKES OF A 4MG Celebrex (Celecoxib) 200 Mg Capsule 200 Mg PO BID Allopurinol 300 Mg Tablet 300 Mg PO DAILY Rosuvastatin Calcium 10 Mg Tablet 10 Mg PO DAILY Telmisartan 80 Mg Tablet 80 Mg PO DAILY Prilosec Otc (Omeprazole Magnesium) 20 Mg Tablet.dr 20 Mg PO DAILY Instructions to patient/family Please see electronic discharge instructions given to patient. Diagnosis/Problems Diagnosis/Problems (1) Status post right knee replacement (2) SOHA on CPAP (3) Obesity (4) BPH (benign prostatic hyperplasia) (5) Hypertension (6) Hyperlipidemia (7) Acute blood loss anemia (8) Post-COVID syndrome (9) Fatigue (10) Osteoarthritis of right knee JOHNNY VARMA DO Jan 28, 2022 10:16
--- NOTE | 2022-01-28 10:36 | Occupational Ther Daily Note ---
OT Current Status-Daily Note Subjective Pt and present for family training. Pt and indicate they would prefer if pt discharged from facility today, as they are unsure about the weather tomorrow. Mental Status/Objective Patient Orientation: Normal For Age ADL-Treatment Therapy Code Descriptions/Definitions Functional [place] Measure: 0=Not Assessed/NA 4=Minimal Assistance 1=Total Assistance 5=Supervision or Setup 2=Maximal Assistance 6=Modified [place] 3=Moderate Assistance 7=Complete IndependenceSCALE: Activities may be completed with or without assistive devices. 5-Ovsfqbawmw-hpfthri completes the activity by him/herself with no assistance from a helper. 5-Set-up or Clean-up Assistance-helper sets up or cleans up; patient completes activity. [place] assists only prior to or following the activity. 4-Supervision or Touching Assistance-helper provides verbal cues and/or touching/steadying and/or contact guard assistance as patient completes activity. Assistance may be provided throughout the activity or intermittently. 3-Partial/Moderate Assistance-helper does LESS THAN HALF the effort. [place] lifts, holds or supports trunk or limbs, but provides less than half the effort. 2-Substantial/Maximal Assistance-helper does MORE THAN HALF the effort. [place] lifts or holds trunk or limbs and provides more than half the effort. 2-Uxcbzaycd-vgiyti does ALL the effort. Patient does none of the effort to complete the activity. Or, the assistance of 2 or more helpers is required for the patient to complete the activity. If activity was not attempted, code reason: 7-Patient Refused. 9-Not Applicable-not attempted and the patient did not perform the activity before the current illness, exacerbation or injury. 10-Not Attempted due to Environmental Limitations-(lack of equipment, weather restraints, etc.). 88-Not Attempted due to Medical Conditions or Safety Concerns. Other Treatment OT/PT cotreat due to skill of 2 clinicians required which a rehabilitation counselor could not perform in order to coordinate UE/LEs, decrease fall risk, and to provide education to pt's . OT focused on ADLs, UE placement and cues for sequencing and safety, PT focused on LE placement, gross overall movements, transfers/mobility. OT provided education to pt's on level of assistance needed for ADLS, and provided education on recommendations for wide sock aide and chief of pediatric urology. Pt and indicate this is something the will assist with, pt's informed the AE are available to purchase if they want to. OT also provided education on wrapping BLEs in charlie wraps, she verbalized understanding. Pt's states she has no other concerns at this time with pt's self care function. Pt used FWW to transfer from recliner, to [facility] area, in/out of car, and over uneven surface. Pt transferred to therapy mat in gym. Post tx, pt and in therapy gym, all needs met, PT present for continued tx. Education OT Patient Education: Correct positioning, Energy conservation, Exercise program, Modified ADL techniques, Progress toward Goal/Update tx plan, Purpose of tx/functional activities, Rehab process, Safety issues, Transfer techniques, Use of adapted equipment Teaching Recipient: Patient Teaching Methods: Discussion Response to Teaching: Verbalize Understanding OT Short Term Goals Short Term Goals Time Frame: Jan 29, 2022 Toileting hygiene: 4 Shower/bathe self: 4 Lower body dressin Putting on/taking off footwear: 3 OT [facility]dc Goals Drop Pit Worker Goals Time Frame: Feb 12, 2022 Eating (QC): 6 Oral Hygiene (QC): 6 Toileting Hygiene (QC): 6 Shower/Bathe Self (QC): 6 Upper Body Dressing (QC): 6 Lower Body Dressing (QC): 6 On/Off Footwear (QC): 6 Additional Goals: 1-Demonstrate ADL Tasks, 2-Verbalize Understanding, 3- ImproveStrength/Praful 1=Demonstrate adherence to instructed precautions during ADL tasks. 2=Patient will verbalize/demonstrate understanding of assistive devices/modifications for ADL. 3=Patient will improve strength/tolerance for activity to enable patient to perform ADL's. OT Education/Plan Problem List/Assessment Assessment: Decreased Activ Tolerance, Decreased Safety Aware, Decreased UE St rength, Impaired I ADL's Discharge Recommendations Plan/Recommendations: Continue POC Treatment Plan/Plan of Care Patient would benefit from OT for education, treatment and training to promote independence in ADL's, mobility, safety and/or upper extremity function for ADL's. Plan of Care: ADL Retraining, Functional Mobility, UE Funct Exercise/Act Treatment Duration: Feb 12, 2022 Frequency: At least 5 of 7 days/Wk (IRF) Estimated Hrs Per Day: 1.5 hours per day Agreement: Yes Rehab Potential: Good Time/GCodes Start Time: 10:00 Stop Time: 10:30 Total Time Billed (hr/min): 30 Billed Treatment Time 1, ADL (15'), FA (15') EDWIGE CHAIREZ OT Jan 28, 2022 10:35
--- NOTE | 2022-01-28 10:49 | Physical Therapy Daily Note ---
PT Daily Note-Current Subjective Patient in recliner pre tx, agrees to PT, has 5-6/10 pain in right knee. Will be co-treating with OT for a bit due to performing family training with while she is here. Appearance Patient in recliner post tx with nurse call, phone, tray, all needs met. Mental Status Patient Orientation: Person, Place, Situation Transfers SCALE: Activities may be completed with or without assistive devices. 3-Hybewsvnrz-tihhkid completes the activity by him/herself with no assistance from a helper. 5-Set-up or Clean-up Assistance-helper sets up or cleans up; patient completes activity. [place] assists only prior to or following the activity. 4-Supervision or Touching Assistance-helper provides verbal cues and/or touching/steadying and/or contact guard assistance as patient completes activity. Assistance may be provided throughout the activity or intermittently. 3-Partial/Moderate Assistance-helper does LESS THAN HALF the effort. [place] lifts, holds or supports trunk or limbs, but provides less than half the effort. 2-Substantial/Maximal Assistance-helper does MORE THAN HALF the effort. [place] lifts or holds trunk or limbs and provides more than half the effort. 1-Eogrfobzh-cyudzz does ALL the effort. Patient does none of the effort to complete the activity. Or, the assistance of 2 or more helpers is required for the patient to complete the activity. If activity was not attempted, code reason: 7-Patient Refused. 9-Not Applicable-not attempted and the patient did not perform the activity before the current illness, exacerbation or injury. 10-Not Attempted due to Environmental Limitations-(lack of equipment, weather restraints, etc.). 88-Not Attempted due to Medical Conditions or Safety Concerns. Roll Left & Right (QC): 6 Sit to Lying (QC): 6 Lying to Sitting/Side of Bed(Q: 6 Sit to Stand (QC): 4 Chair/Xxg-gl-Ygidk Xfer(QC): 4 Toilet Transfer (QC): 4 Car Transfer (QC): 4 Patient performs rolling and supine <-> sit with independence, sit <-> stand and transfers SBA, car transfer SBA. Patient has some difficulty with supine <-> sit but can do it without assist. Patient does need a lot of cues for positioning and safety during transfers. Weight Bearing Right Lower Extremity: Right Weight Bearing/Tolerated Left Lower Extremity: Left Full Weight Bearing Gait Training Distance: 120', 60'x2 Walk 10 feet (QC): 4 Walk 50 ft with 2 Turns(QC): 4 Walk 150 ft (QC): 88 Walking 10ft/uneven surface-QC: 4 Gait Persons Needed: 1 Gait Assistive Device: FWW Patient can ambulate 120' with a rolling walker with SBA (including 50' with at least 2 turns of 90 degrees and 10' over an uneven surface). Patient ambulates very slowly and has frequent shuffling similar to parkinson's. Wheelchair Training Wheel 50 ft with 2 turns (QC): 9 Wheel 150 ft (QC): 9 Stair Training 1 Step (curb) (QC): 9 4 Steps (QC): 9 12 Steps (QC): 9 Patient declines performing stairs, he says he doesn't have any at home. Balance Picking up an Object (QC): 4 (SBA using pack out operator) Treatments bed mobility and transfers, ambulation, family training Assessment Current Status: Poor Progress Patient needs a lot of cues for safety during activity PT Short Term Goals Short Term Goals Time Frame: Jan 27, 2022 Sit to lyin (SBA) Lying to sitting on side of be: 4 (SBA) Sit to stand: 3 (min) Chair/sta-po-xkyyk transfer: 3 (min) Toilet transfer: 3 (min) Walk 10 feet: 4 Walk 50 feet with two turns: 4 Walk 150 feet: 4 1 step (curb): 3 PT [facility] Goals [facility] Goals PT Director Of Acquisitions Goals Time Frame: Feb 10, 2022 Roll Left & Right (QC): 6 Sit to Lying (QC): 6 Lying-Sitting on Side/Bed(QC): 6 Sit to Stand (QC): 6 Chair/Oyo-rx-Xfavr Xfer(QC): 6 Toilet Transfer (QC): 6 Car Transfer (QC): 6 Does the Patient Walk: Yes Walk 10 feet (QC): 6 Walk 50ft with 2 Turns (QC): 6 Walk 150 ft (QC): 6 Walking 10ft on Uneven Surface: 6 1 Step (curb) (QC): 6 4 Steps (QC): 4 12 Steps (QC): 4 Picking up an Object (QC): 6 Does the Pt use WC or Scooter?: No Wheel 50 feet with 2 turns (QC: 09 Type: N/A Wheel 150 feet: 09 Type: N/A PT Plan Problem List Problem List: Activity Tolerance, Functional Strength, Safety, Balance, Gait, Transfer, Bed Mobility, ROM Treatment/Plan Treatment Plan: Continue Plan of Care Treatment Plan: Concurrent Therapy, Education, Functional Activity Praful, Functional Strength, Group Therapy, Gait, Safety, Therapeutic Exercise, Transfers Treatment Duration: Feb 10, 2022 Frequency: At least 5 of 7 days/Wk (IRF) Estimated Hrs Per Day: 1.5 hours per day Patient and/or Family Agrees t: Yes Safety Risks/Education Patient Education: Gait Training, Transfer Techniques, Correct Positioning, Safety Issues Teaching Recipient: Patient Teaching Methods: Demonstration, Discussion Response to Teaching: Reinforcement Needed Time/GCodes Time In: 1000 Time Out: 1100 Total Billed Treatment Time: 60 Total Billed Treatment 1 visit FA 60' co-treated with OT for 30' ARIADNA LY PT Jan 28, 2022 10:49
--- NOTE | 2022-01-28 11:19 | Therapy Team Discharge Summary ---
Therapy Discharge Summary Discharge Recommendations Date of Discharge Physical Therapy Patient came to rehab following a right TKA. Upon evaluation patient performed rolling with independence, supine <-> sit SBA, sit <-> stand and transfers mod assist, car transfer mod assist, ambulated 150' with a rolling walker with CGA (including 50' with at least 2 turns of 90 degrees and 10' over an uneven surface). Patient has been performing bed mobility and transfer training, balance and endurance training, functional strengthening, gait training, and education. Patient has made some progress but has only met his assistant terminal manager goals for rolling and supine <-> sit. Now, patient performs rolling and supine <-> sit with independence, sit <-> stand and transfers SBA, car transfer SBA, ambulate 120' with a rolling walker with SBA (including 50' with at least 2 turns of 90 degrees and 10' over an uneven surface), and can vegetable picker an object from the floor with SBA using a assistant store manager operations. Patient is being discharged from this facility today and will be discharged from PT at this time. Roll Left to Right (QC): 6 Sit to Lying (QC): 6 Lying to Sitting/Side of Bed(Q: 6 Sit to Stand (QC): 4 Chair/Fjm-dm-Ogbjf Xfer(QC): 4 Toilet Transfer (QC): 4 Car Transfer (QC): 4 Does the Patient Walk: Yes Mode of Locomotion: Walk Anticipated Mode of Locomotion: Walk Walk 10 feet (QC): 4 Walk 50 ft with 2 Turns(QC): 4 Walk 150 ft (QC): 88 Walking 10ft on uneven surface: 4 Distance: 150' Gait Assistive Device: FWW Does the Pt Use a Wheelchair: No Wheel 50 ft with 2 turns (QC): 9 Wheel 150 ft (QC): 9 Type of Wheelchair: N/A 1 Step (curb) (QC): 9 4 Steps (QC): 9 12 Steps (QC): 9 Balance Sitting Static: Normal Balance Sitting Dynamic: Normal Balance-Standing Static: Normal Picking up an Object (QC): 4 (SBA using assistant store manager operations) Occupational Therapy Decreased Activ Tolerance, Decreased Safety Aware, Decreased UE Strength, Impaired I ADL's Eating (QC): 6 (Per pt report.) Oral Hygiene (QC): 4 (Per clinical judgment, SBA at sink.) Shower/Bathe Self (QC): 5 (set up assist.) Upper Body Dressing (QC): 5 (set up assist.) Lower Body Dressing (QC): 5 (set up with assistant store manager operations) On/Off Footwear (QC): 3 (Min assist with gripper socks, OT donned [place]. Pt utilized assistant store manager operations and sock aid.) Toileting Hygiene (QC): 4 (SBA, pt able to manage clothing and perform hygiene. Encouragement to complete hygiene himself.) PT [facility] Goals [facility] Goals PT [facility] Goals Time Frame: Feb 10, 2022 Roll Left to Right (QC): 6 Sit to Lying (QC): 6 Lying-Sitting on Side/Bed(QC): 6 Sit to Stand (QC): 6 Chair/Uqa-sw-Gosml Xfer(QC): 6 Car Transfer (QC): 6 Does the Patient Walk: Yes Walk 10 feet (QC): 6 Walk 10ft-Uneven Surface(QC): 6 Walk 50ft with 2 Turns (QC): 6 Walk 150 ft (QC): 6 Does the Pt use WC or Scooter?: No Wheel 50 feet with 2 turns (QC: 09 1 Step (curb) (QC): 6 4 Steps (QC): 4 12 Steps (QC): 4 Picking up an Object (QC): 6 OT [facility] Goals Agent Spa Desk Goals Time Frame: Feb 12, 2022 Eating (QC): 6 Oral Hygiene (QC): 6 Shower/Bathe Self (QC): 6 Upper Body Dressing (QC): 6 Lower Body Dressing (QC): 6 On/Off Footwear (QC): 6 Toileting Hygiene (QC): 6 Toilet/Commode Transfer (QC): 6 Additional Goals: 1-Demonstrate ADL Tasks, 2-Verbalize Understanding, 3-Impro veStrength/Praful 1=Demonstrate adherence to instructed precautions during ADL tasks. 2=Patient will verbalize/demonstrate understanding of assistive devices/modifications for ADL. 3=Patient will improve strength/tolerance for activity to enable patient to perform ADL's. ARIADNA LY PT Jan 28, 2022 11:19
[2022-01-28 12:50] VITALS: BP 119/58
--- NOTE | 2022-01-28 14:11 | Therapy Team Discharge Summary ---
Therapy Discharge Summary Discharge Recommendations Date of Discharge Jan 28, 2022 at 12:50 Physical Therapy Roll Left to Right (QC): 6 Sit to Lying (QC): 6 Lying to Sitting/Side of Bed(Q: 6 Sit to Stand (QC): 4 Chair/Znq-tl-Mxpht Xfer(QC): 4 Toilet Transfer (QC): 4 Car Transfer (QC): 4 Does the Patient Walk: Yes Mode of Locomotion: Walk Anticipated Mode of Locomotion: Walk Walk 10 feet (QC): 4 Walk 50 ft with 2 Turns(QC): 4 Walk 150 ft (QC): 88 Walking 10ft on uneven surface: 4 Distance: 150' Gait Assistive Device: FWW Does the Pt Use a Wheelchair: No Wheel 50 ft with 2 turns (QC): 9 Wheel 150 ft (QC): 9 Type of Wheelchair: N/A 1 Step (curb) (QC): 9 4 Steps (QC): 9 12 Steps (QC): 9 Balance Sitting Static: Normal Balance Sitting Dynamic: Normal Balance-Standing Static: Normal Picking up an Object (QC): 4 (SBA using store clerk checker) Occupational Therapy Pt admitted to ARU s/p R TKA. At [facility], pt was independent with ADLs and functional mobility, no AD. Upon initial evaluation, pt was independent with eating, required SBA oral care, min A showering, set up upper body dressing, min A lower body dressing, max A footwear and min A toileting. OT txs focused on increasing BUE strength and activity tolerance, as well as increasing safety and independence with ADLs. Pt made functional progress towards goals, but only attained LTG for eating. Pt's progress limited by pt's motivation, and slow movements throughout sessions. OT recommendations include a store clerk checker and wide sock aide. Pt discharged home with home health, d/c from OT. Decreased Activ Tolerance, Decreased Safety Aware, Decreased UE Strength, Impaired I ADL's Eating (QC): 6 (Per pt report.) Oral Hygiene (QC): 4 (Per clinical judgment, SBA at sink.) Shower/Bathe Self (QC): 5 (set up assist.) Upper Body Dressing (QC): 5 (set up assist.) Lower Body Dressing (QC): 5 (set up with store clerk checker) On/Off Footwear (QC): 3 (Min assist with gripper socks, OT donned Bkhose. Pt utilized store clerk checker and sock aid.) Toileting Hygiene (QC): 4 (SBA, pt able to manage clothing and perform hygiene. 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 Time Frame: Feb 10, 2022 Roll Left to Right (QC): 6 Sit to Lying (QC): 6 Lying-Sitting on Side/Bed(QC): 6 Sit to Stand (QC): 6 Chair/Mtm-bc-Ttlbw Xfer(QC): 6 Car Transfer (QC): 6 Does the Patient Walk: Yes Walk 10 feet (QC): 6 Walk 10ft-Uneven Surface(QC): 6 Walk 50ft with 2 Turns (QC): 6 Walk 150 ft (QC): 6 Does the Pt use WC or Scooter?: No Wheel 50 feet with 2 turns (QC: 09 1 Step (curb) (QC): 6 4 Steps (QC): 4 12 Steps (QC): 4 Picking up an Object (QC): 6 OT Correction Goals Correction Goals Time Frame: Feb 12, 2022 Eating (QC): 6 (met) Oral Hygiene (QC): 6 (not met) Shower/Bathe Self (QC): 6 (not met) Upper Body Dressing (QC): 6 (not met) Lower Body Dressing (QC): 6 (not met) On/Off Footwear (QC): 6 (not met) Toileting Hygiene (QC): 6 (not met) Toilet/Commode Transfer (QC): 6 (not met) Additional Goals: 1-Demonstrate ADL Tasks, 2-Verbalize Understanding, 3- ImproveStrength/Praful 1=Demonstrate adherence to instructed precautions during ADL tasks. 2=Patient will verbalize/demonstrate understanding of assistive devices/modifications for ADL. 3=Patient will improve strength/tolerance for activity to enable patient to perform ADL's. EDWIGE CHAIREZ OT Jan 28, 2022 14:11
== END 2022-01-28 12:50 | disposition home health service (06) | DRG 560 ==
PROVIDERS: ADMIT Internal Medicine; ATTEND Internal Medicine
DX: Z47.1 Aftercare following joint replacement surgery (principal); D62 Acute posthemorrhagic anemia; Z68.41 Body mass index [BMI] 40.0-44.9, adult; E66.9 Obesity, unspecified; R53.83 Other fatigue; U09.9 Post COVID-19 condition, unspecified; G47.33 Obstructive sleep apnea (adult) (pediatric); N40.0 Benign prostatic hyperplasia without lower urinary tract symptoms; E78.00 Pure hypercholesterolemia, unspecified; E78.5 Hyperlipidemia, unspecified; I10 Essential (primary) hypertension; K59.09 Other constipation; D69.59 Other secondary thrombocytopenia; Z87.891 Personal history of nicotine dependence; Z79.82 Long term (current) use of aspirin; Z88.0 Allergy status to penicillin
CPT/HCPCS: 36415; 80053; 85025

== ENCOUNTER → 2022-02-09 | Outpatient (CLI) | payer MEDICARE, OTHER ==
[~2022-02-09] MED LIST changes: -ACETAMINOPHEN 325 MG TABLET PO PRN; -ALPRAZolam 0.25 MG (XANAX) TAB PO PRN; -BISACODYL 10 MG SUPP (DULCOLAX) PR PRN; -CALCIUM CARBONATE 500 MG (TUMS) TAB.CHEW PO PRN; -DOCUSATE SODIUM 100 MG (COLACE) CAP PO PRN; -FLEET ENEMA ADULT 1 EA BTL PR PRN; -LACTULOSE SYRUP 10GM/15ML (ENULOSE) 30ML UDC PO PRN; -LOPERAMIDE 2 MG (IMODIUM) TABLET PO PRN; -MELATONIN 3 MG TABLET PO PRN; -ONDANSETRON 4 MG (ZOFRAN) ORAL DISSOLVE TAB PO PRN; +SENN1TAB76 PO; -diphenhydrAMINE 25 MG TAB (BENADRYL) PO PRN; -guaiFENesin/CODEINE (ROBITUSSIN AC) 10ML UDC PO PRN
== END ==
LOC: ORTHO 14:37
PROVIDERS: ATTEND Orthopaedic Surgery
DX: Z96.651 Presence of right artificial knee joint (principal)

== ENCOUNTER → 2022-03-04 | Outpatient (CLI) | payer MEDICARE, OTHER ==
--- NOTE | 2022-03-04 14:14 | Diagnostic Imaging Report ---
INDICATION: Postop visit. COMPARISON: 01/18/2022. FINDINGS: Two views of the right knee were obtained. Expected postoperative changes are seen from right knee total arthroplasty. Femoral and tibial components appear well-seated. There is no evidence of periprosthetic fracture. No unexpected radiopaque foreign bodies are identified. IMPRESSION: Expected post surgical changes from right knee total arthroplasty, as described above. No unexpected radiopaque foreign bodies. Dictated by: Dictated on workstation # [id number]
== END ==
LOC: ORTHO 13:45
PROVIDERS: ATTEND Orthopaedic Surgery
DX: Z96.651 Presence of right artificial knee joint (principal)
CPT/HCPCS: 73560

== ENCOUNTER → 2023-01-18 | Outpatient (CLI) | payer MEDICARE, OTHER ==
--- NOTE | 2023-01-18 15:23 | Diagnostic Imaging Report ---
INDICATION: Bilateral knee pain AP and lateral views of both knees are obtained. There are bilateral knee prostheses in good alignment. There is no sign of fracture or device loosening. IMPRESSION: No acute fracture. Well aligned bilateral knee prostheses. Dictated by: Dictated on workstation # [id number]
== END ==
LOC: ORTHO 10:26
PROVIDERS: ATTEND Orthopaedic Surgery
DX: M25.561 Pain in right knee (principal); M25.562 Pain in left knee
CPT/HCPCS: 73560; G0463; 99213